=== PATIENT | male | born 1965 | race African-American/Black ===

== ENCOUNTER 2022-12-02 08:19 | Outpatient (REF) | payer OTHER, SELFPAY ==
--- NOTE | ~2022-12-02 | XR_ITS ---
EXAMINATION: XR KNEE, RIGHT XR KNEE, LEFT XR KNEE, STANDING BILATERAL CLINICAL INFORMATION: Bilateral knee pain. COMPARISON: None available. TECHNIQUE: AP standing view of bilateral knees, AP standing view of the left knee. Lateral and sunrise views of bilateral knees. FINDINGS: LEFT KNEE: Severe degenerative changes in the medial compartment of the left knee with obliteration of the joint space, [id number], subchondral sclerosis, and severe valgus deformity with subluxation. Small joint effusion. Moderate posterior patellar and lateral marginal osteophytes. RIGHT KNEE: No significant joint effusion. Small quadriceps enthesophyte. Moderate medial marginal and posterior patellar osteophytes. Moderate medial joint space narrowing. XR/XR knee RT 2V IMPRESSION: 1. Severe degenerative changes medial compartment left knee with subluxation. 2. Moderate degenerative changes right knee. Additional imaging with CT scan or MRI should be considered for better visualization as these modalities are much more sensitive for detection of fracture or other underlying pathology.
--- NOTE | ~2022-12-02 | XR_ITS ---
EXAMINATION: XR KNEE, RIGHT XR KNEE, LEFT XR KNEE, STANDING BILATERAL CLINICAL INFORMATION: Bilateral knee pain. COMPARISON: None available. TECHNIQUE: AP standing view of bilateral knees, AP standing view of the left knee. Lateral and sunrise views of bilateral knees. FINDINGS: LEFT KNEE: Severe degenerative changes in the medial compartment of the left knee with obliteration of the joint space, [id number], subchondral sclerosis, and severe valgus deformity with subluxation. Small joint effusion. Moderate posterior patellar and lateral marginal osteophytes. RIGHT KNEE: No significant joint effusion. Small quadriceps enthesophyte. Moderate medial marginal and posterior patellar osteophytes. Moderate medial joint space narrowing. XR/XR knee standing BI IMPRESSION: 1. Severe degenerative changes medial compartment left knee with subluxation. 2. Moderate degenerative changes right knee. Additional imaging with CT scan or MRI should be considered for better visualization as these modalities are much more sensitive for detection of fracture or other underlying pathology.
--- NOTE | ~2022-12-02 | XR_ITS ---
EXAMINATION: XR KNEE, RIGHT XR KNEE, LEFT XR KNEE, STANDING BILATERAL CLINICAL INFORMATION: Bilateral knee pain. COMPARISON: None available. TECHNIQUE: AP standing view of bilateral knees, AP standing view of the left knee. Lateral and sunrise views of bilateral knees. FINDINGS: LEFT KNEE: Severe degenerative changes in the medial compartment of the left knee with obliteration of the joint space, [id number], subchondral sclerosis, and severe valgus deformity with subluxation. Small joint effusion. Moderate posterior patellar and lateral marginal osteophytes. RIGHT KNEE: No significant joint effusion. Small quadriceps enthesophyte. Moderate medial marginal and posterior patellar osteophytes. Moderate medial joint space narrowing. XR/XR knee LT 2V IMPRESSION: 1. Severe degenerative changes medial compartment left knee with subluxation. 2. Moderate degenerative changes right knee. Additional imaging with CT scan or MRI should be considered for better visualization as these modalities are much more sensitive for detection of fracture or other underlying pathology.
== END 2022-12-02 08:20 | disposition home or self-care (01) ==
LOC: HO.HOSX 08:19
PROVIDERS: Visit Provider Physician Assistant
DX: M17.0 Bilateral primary osteoarthritis of knee (principal)
CPT/HCPCS: 73560; 73565; 99202

== ENCOUNTER 2022-12-02 15:04 | Outpatient (AMB) | payer OTHER, SELFPAY ==
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
[2022-12-02 15:15] VITALS: BMI 36.2
== END 2022-12-02 15:34 | disposition home or self-care (01) ==
PROVIDERS: Visit Provider Physician Assistant
DX: M17.0 Bilateral primary osteoarthritis of knee (principal)
CPT/HCPCS: 99204

== ENCOUNTER 2022-12-29 12:24 | Outpatient (AMB) | payer OTHER, SELFPAY ==
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
[2022-12-29 12:34] VITALS: BMI 36.2
== END 2022-12-29 13:06 | disposition home or self-care (01) ==
PROVIDERS: Visit Provider Orthopaedic Surgery
DX: M17.0 Bilateral primary osteoarthritis of knee (principal)
CPT/HCPCS: 99214

== ENCOUNTER → 2022-12-29 12:24 | Outpatient (BNVA) | payer OTHER, SELFPAY | PROVIDERS: Visit Provider Orthopaedic Surgery | DX: M17.0 Bilateral primary osteoarthritis of knee (principal) | CPT/HCPCS: 99212 ==

== ENCOUNTER → 2023-02-15 11:04 | Outpatient (BNVA) | payer OTHER, SELFPAY | PROVIDERS: Visit Provider Orthopaedic Surgery ==

== ENCOUNTER → 2023-03-13 14:11 | Outpatient (BNVA) | payer OTHER, SELFPAY | PROVIDERS: PCP Student in an Organized Health Care Education/Training Program; Visit Provider Physician Assistant ==

== ENCOUNTER → 2023-05-18 14:14 | Outpatient (BNVA) | payer OTHER, SELFPAY | PROVIDERS: PCP Student in an Organized Health Care Education/Training Program; Visit Provider Physician Assistant ==

== ENCOUNTER 2023-05-23 12:45 | Day surgery (SDC) | payer OTHER, SELFPAY ==
[2023-05-18 13:29] VITALS: BP 160/82; PULSE 58; RESP 18; O2SAT 99; BMI 38.2
--- NOTE | 2023-05-18 13:46 | HO.ANESPROP2 ---
Documented by User: Lana Bethea NP 05/18/23 13:58 HPI - Anesthesia Eval Consult details Narrative: 57yo M for Left Knee Replacement Total, 05/23/23 PCP Cleared No recent illness No CP/SOB with minimal activity d/t pain PMFSH Active Problems Active Problems: All Active Problems (Updated 05/18/23 @ 13:28 by Glenys Tello RN) Osteoarthritis of left knee (Acute) Osteoarthritis of right knee (Acute) Past Medical History Medical History History of infection of skin or subcutaneous tissue BPH (benign prostatic hyperplasia) Arthritis Hx of transfusion of packed red blood cells Anemia Sleep apnea Elevated cholesterol HTN (hypertension) Family History Family history of problems with anesthesia: No Surgical History Surgical History H/O colonoscopy History of ankle surgery History of Problems with Anesthesia: No Social History Social History Are you a primary career based intervention coordinator to a significant other at home: No Do you presently have visiting nurse or other home services: No Patient Tobacco Use Status: Never used Tobacco Use of substances other than those prescribed or required for medical reasons: Yes Substance Use Frequency: Occasionally Have you been hit, kicked, punched, or otherwise hurt by someone within the past year? 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 Meds Allergies Allergy/AdvReac Type Severity Reaction Status Date / Time No Known Allergies Allergy Verified 05/18/23 14:19 Home Medications Medication Instructions Recorded Confirmed Last Taken Type atorvastatin 10 mg tablet 10 mg PO BEDTIME 12/02/22 05/18/23 Unknown History lisinopril 2.5 mg tablet 2.5 mg PO DAILY 12/02/22 05/18/23 Unknown History secukinumab 150 mg/mL subcutaneous 150 mg subcut Q4W 12/02/22 05/18/23 Unknown History syringe (Cosentyx) finasteride 5 mg tablet 2.5 mg PO DAILY 05/18/23 05/18/23 Unknown History naproxen 500 mg tablet 500 mg PO BID PRN Pain 05/18/23 05/18/23 Unknown History Exam Height,Weight and Vital Signs: Height 5 ft 7 in Weight 110.677 kg Last Vital Signs Pulse 58 05/18/23 13:29 Resp 18 05/18/23 13:29 BP 160/82 H 05/18/23 13:29 Pulse Ox 99 05/18/23 13:29 O2 Del Method Room Air 05/18/23 13:29 Pertinent Lab Results Pertinent Lab Results: A1C = 5.5 08/2022 Narrative Narrative: EKG 02/2023 SR @ 64 PVC RSR' in V1 or V2 LVH Airway Mallampati Class: III TM Dist: >3cm Neck ROM: Full Loose/Missing/Broken Teeth: Yes (Missing molars) Heart: RRR Lungs: CTAB Assessment and Plan Assessment Anesthesia Assessment: Anesthesia Plan Discussed and PAT Visit Final Anesthetic Review Family History of Problems with Anesthesia: No History of Problems with Anesthesia: No Documented by User: Micki Tinsley MD 05/23/23 13:03 [facility] [place] Past Medical History Medical History History of infection of skin or subcutaneous tissue BPH (benign prostatic hyperplasia) Arthritis Hx of transfusion of packed red blood cells Anemia Sleep apnea Elevated cholesterol HTN (hypertension) Surgical History Surgical History H/O colonoscopy History of ankle surgery Social History Social History Are you a primary career based intervention coordinator to a significant other at home: No Do you presently have visiting nurse or other home services: No Patient Tobacco Use Status: Never used Tobacco Use of substances other than those prescribed or required for medical reasons: Yes Substance Use Frequency: Occasionally Have you been hit, kicked, punched, or otherwise hurt by someone within the past year? 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 Meds Allergies Allergy/AdvReac Type Severity Reaction Status Date / Time No Known Allergies Allergy Verified 05/18/23 14:19 Home Medications Medication Instructions Recorded Confirmed Last Taken Type atorvastatin 10 mg tablet 10 mg PO BEDTIME 12/02/22 05/18/23 Unknown History lisinopril 2.5 mg tablet 2.5 mg PO DAILY 12/02/22 05/18/23 Unknown History secukinumab 150 mg/mL subcutaneous 150 mg subcut Q4W 12/02/22 05/18/23 Unknown History syringe (Cosentyx) finasteride 5 mg tablet 2.5 mg PO DAILY 05/18/23 05/18/23 Unknown History naproxen 500 mg tablet 500 mg PO BID PRN Pain 05/18/23 05/18/23 Unknown History Assessment and Plan Final Anesthetic Review ASA Class: III Final Preanesthetic Review: No Changes in Pt Med Stat, Meds/Allgs Chart Reviewed, Consent Obtained/Reviewed and Anes Risks/Benef Reviewed Patient Risk: Intermediate Procedure Risk: Intermediate Anesthetic Plan Anesthetic Plan: GA, MAC: and Spinal Disposition: Standard PACU
[2023-05-18 14:47] LABS: Hematocrit 39.4 % (42.0-52.0); Hemoglobin 12.8 g/dl (14.0-18.0); Mean Corpuscular HGB Conc 32.5 g/dl (31.0-36.0); Mean Corpuscular Hemoglobin 27.7 pg (27.0-33.0); Mean Corpuscular Volume 85.3 fL (80.0-98.0); Mean Platelet Volume 12.7 fL (9.4-12.4); Platelet Count 128 X10*3/uL (160-400); Red Blood Count 4.62 X10*6/uL (4.60-5.80); Red Cell Distribution Width 14.1 % (11.0-16.0); White Blood Count 8.3 X10*3/uL (4.8-10.8)
[2023-05-18 15:35] LABS: Anion Gap 12 (12-20); Blood Urea Nitrogen 15 mg/dL (9-16); Calcium 9.8 mg/dL (8.4-10.2); Carbon Dioxide 24 mmol/L (22-29); Chloride 108 mmol/L (96-108); Estimated Glomerular Filt Rate > 60; Glucose Random 78 mg/dL (60-115); Potassium 3.9 mmol/L (3.3-5.1); Sodium 140 mmol/L (135-145)
[2023-05-18 16:48] LABS: MRSA Nasal PCR POSITIVE (Negative); SA Nasal PCR POSITIVE (Negative)
[2023-05-23] VITALS (9 sets, daily range): BP systolic 131–161; BP diastolic 75–90; PULSE 51–89; RESP 14–19; TEMP 36.3–36.7; O2SAT 96–100; BMI 38.4
--- NOTE | ~2023-05-23 | XR_ITS ---
EXAMINATION:XR knee LT 2V CLINICAL INFORMATION: Reason for Exam lt tka COMPARISON: November 2022 TECHNIQUE: Frontal and lateral views acquired FINDINGS: BONES: No fracture or dislocation is present. JOINTS: There is total knee replacement prosthesis device, both femoral and tibial component of which is properly positioned maintaining normal alignment's. No radiologic evidence of device loosening. Patella properly positioned. SOFT TISSUE: Subcutaneous emphysema likely postoperative. XR/XR knee LT 2V IMPRESSION: 1. Status post total knee replacement. The prosthesis is properly positioned. 2. Subcutaneous emphysema likely postoperative.
[2023-05-23] MEDS: Lactated Ringers 1,000 ML 100 ML IVCONT ×2 (13:55→19:47)
--- NOTE | 2023-05-23 16:24 | MHC.SHP ---
Pre-Procedural Eval Section A - 24 Hr Update-Section A only Date of Service: 05/23/23 The patient is an INPATIENT: No Changes since office visit: No Cold of Flu in the past 2 weeks, No New Medical Problems, No Changes in Medication and No Patient answered all questions The patient has been examined within 24 hours of the surgical procedure. The History & Physical has been completed within 30 days and I have reviewed it.: Yes Section B - Complete if H&P > 30 days Chief Complaint: LT TKA Allergies: Allergies Allergy/AdvReac Type Severity Reaction Status Date / Time No Known Allergies Allergy Verified 05/18/23 14:19 Plan I have reviewed the history and physical and performed a pertinent physical examination on my patient. No changes have occurred unless specified. Time Spent With Patient Time: Total time managing care of this patient today ____ minutes.
--- NOTE | 2023-05-23 18:20 | P.BOP_ITS ---
Brief Operative Note Date of Service: 05/23/23 Pre-op diagnosis: Left knee OA Post-op diagnosis: same Procedure: Left TKA Implants: [place] Triuathlon cemented posterior stabilized 07/26/18 Surgeon: Josias Bacon MD Anesthesia: GETA Was an Property Supervisor used for this Procedure?: Yes Property Supervisor: Steve Quach Estimated blood loss (mL): 10 Tourniquet time (min): 70 Pathology: other Condition: stable Disposition: PACU
[2023-05-23] MEDS: oxyCODONE HCl ER 10 MG TAB.ER.12H PO (20:11)
[2023-05-23] MEDS: Celecoxib 200 MG CAPSULE PO (20:11)
[2023-05-23] MEDS: Docusate Sodium 100 MG CAPSULE PO (20:11)
[2023-05-23] MEDS: oxyCODONE HCl Immed Release 5 MG TABLET PO (23:32)
[2023-05-23] MEDS: Acetaminophen 325 MG TABLET 650 MG PO (23:33)
[2023-05-23] MEDS: vancomycin HCL 1,000 MG in 0.9 % Sodium Chloride 250 ML 270 MG IV (23:33)
[2023-05-24 02:33] VITALS: BP 154/79; PULSE 94; RESP 18; TEMP 36.4; O2SAT 99
[2023-05-24] MEDS: HYDROmorphone HCl 0.5 MG/0.5 ML SYRINGE 0.25 MG IVPUSH (02:33)
[2023-05-24] MEDS: Lactated Ringers 1,000 ML 100 ML IVCONT (06:07)
[2023-05-24 06:09] LABS: Basophils Percent Auto 0.1 % (0-2); Hemoglobin 12.2 g/dl (14.0-18.0); Imm Gran Abs Auto 0.04 X10*3/uL (0.00-0.03); Imm Gran Pct Auto 0.3 % (0.0-0.4); PLT ABN DIST 1; SCAN SMEAR FLAG 1
[2023-05-24 06:10] LABS: Hematocrit 36.6 % (42.0-52.0); Lymphocytes Absolute Auto 0.7 X10*3/uL (1.2-4.9); Lymphocytes Percent Auto 5.6 % (20-40); Mean Corpuscular HGB Conc 33.3 g/dl (31.0-36.0); Mean Corpuscular Hemoglobin 28.2 pg (27.0-33.0); Mean Corpuscular Volume 84.7 fL (80.0-98.0); Mean Platelet Volume 13.5 fL (9.4-12.4); Monocytes Absolute Auto 0.6 X10*3/uL (0.1-1.2); Monocytes Percent Auto 4.5 % (2-11); Neutrophils Absolute Auto 11.3 x10*3/uL (2.0-8.3); Neutrophils Percent Auto 89.5 % (45-73); PLT CLUMP 1; Red Blood Count 4.32 X10*6/uL (4.60-5.80)
[2023-05-24 06:11] LABS: MANUAL DIFF FLAG NO; Platelet Count 107 X10*3/uL (160-400); White Blood Count 12.6 X10*3/uL (4.8-10.8)
[2023-05-24] MEDS: oxyCODONE HCl Immed Release 5 MG TABLET PO (06:11)
[2023-05-24] MEDS: Acetaminophen 325 MG TABLET 650 MG PO (06:11)
[2023-05-24 06:44] LABS: Anion Gap 15 (12-20); Blood Urea Nitrogen 15 mg/dL (9-16); Calcium 9.3 mg/dL (8.4-10.2); Carbon Dioxide 20 mmol/L (22-29); Chloride 105 mmol/L (96-108); Estimated Glomerular Filt Rate > 60; Glucose Fasting 140 mg/dL (60-99); Potassium 4.4 mmol/L (3.3-5.1); Sodium 136 mmol/L (135-145)
[2023-05-24] MEDS: Finasteride 5 MG TABLET 2.5 MG PO (07:33)
[2023-05-24] MEDS: oxyCODONE HCl ER 10 MG TAB.ER.12H PO (07:33)
[2023-05-24] MEDS: Celecoxib 200 MG CAPSULE PO (07:34)
[2023-05-24] MEDS: Docusate Sodium 100 MG CAPSULE PO (07:34)
--- NOTE | 2023-05-24 07:34 | PM.PNORT ---
Subjective Subjective Date of Service: 05/24/23 Interval history: POD1 s/p LTKA Patient is resting in bed comfortably No overnight events Pain is managed No additional complaints Physical Exam Vital Signs: Vital Signs: Last Vital Signs Temp 97.5 F 05/24/23 02:33 Pulse 94 05/24/23 02:33 Resp 18 05/24/23 02:33 BP 154/79 H 05/24/23 02:33 Pulse Ox 99 05/24/23 02:33 O2 Del Method Nasal Cannula 05/24/23 02:33 O2 Flow Rate 2 05/24/23 02:33 BMI result Body Mass Index 38.4 Const: General: cooperative, healthy appearing and no acute distress Resp: Effort & Inspection: normal respiratory effort and able to speak in complete sentences Cardio: Rate: regular rate Peripheral pulses: Peripheral pulses 2+ throughout GI: Palpation (GI): Soft to palpation Skin: Lesions: no lesions Rashes: no rashes Extrem: Other: left knee dressing is c/d/i. Able to dorsi/plantar flex. Calf is supple and nontender. Sensation intact. Pedal pulse intact. Procedures Date of Service Date of Service: 05/24/23 Progress Note: A&P Assessment and plan (1) Status post total knee replacement, left: Status: Acute Plan Continue pain mgmnt Begin ASA for dvt ppx begin PT for LTKA Dispo planning-Pending PT eval, pain mgmnt Time Spent With Patient Time: Total time managing care of this patient today ____ minutes. Quality Stroke Does the patient have a stroke diagnosis?: No VTE Prior VTE?: No VTE Risk Level:: Medical - moderate - high VTE Device Contraindication: N/A - Device Ordered VTE Drug Contraindication: N/A - Med Ordered
--- NOTE | 2023-05-24 07:36 | PM.DS ---
DS: Providers Provider Date of Service: 05/24/23 Primary care physician: Pito Capellan MD DS: Diagnosis Discharge Diagnosis (1) Status post total knee replacement, left: Status: Acute DS: Summary Hospital Course Hospital Course: The patient underwent a successful left total knee arthroplasty, they were transferred to PACU and then to the floor to recover. During their stay, their vitals were stable, afebrile at 97.5. Labs were unremarkable, H/H 12.2/36.6. POD 1 they were started on Aspirin 325mg po bid for DVT ppx, they also received Physical Therapy services twice a day. Prior to discharge, their dressing was changed, incision clean dry and intact, new Aquacel dressing applied and the plan was to be discharged home with VNA services. Time Attestation Discharge coordination time: Less than 30 minutes Quality: Safe Use of Opioids Does Pt have an Active Cancer Diagnosis on the Problem List?: No Quality: Stroke Does the patient have a stroke diagnosis?: No Physical Exam Vital Signs: Vital Signs: Last Vital Signs Temp 97.5 F 05/24/23 02:33 Pulse 94 05/24/23 02:33 Resp 18 05/24/23 02:33 BP 154/79 H 05/24/23 02:33 Pulse Ox 99 05/24/23 02:33 O2 Del Method Nasal Cannula 05/24/23 02:33 O2 Flow Rate 2 05/24/23 02:33 BMI result Body Mass Index 38.4 Const: General: cooperative, healthy appearing and no acute distress Resp: Effort & Inspection: normal respiratory effort and able to speak in complete sentences Cardio: Rate: regular rate Peripheral pulses: Peripheral pulses 2+ throughout GI: Palpation (GI): Soft to palpation Skin: Lesions: no lesions Rashes: no rashes Extrem: Other: left knee dressing is c/d/i. Able to dorsi/plantar flex. Calf is supple and nontender. Sensation intact. Pedal pulse intact. DS: Data Data Completed and Pending Pending studies at discharge: Pending at discharge 05/23/23 17:58 Surgical [PTH] Routine Labs on day of discharge: Laboratory Results - last 24 hr 05/24/23 05:23 WBC 12.6 H RBC 4.32 L Hgb 12.2 L Hct 36.6 L MCV 84.7 MCH 28.2 MCHC 33.3 RDW 14.0 Plt Count 107 L MPV 13.5 H Immature Gran % (Auto) 0.3 Neut % (Auto) 89.5 H Lymph % (Auto) 5.6 L [place] % (Auto) 4.5 Eos % (Auto) 0.0 Baso % (Auto) 0.1 Lymph # (Auto) 0.7 L [place] # (Auto) 0.6 Eos # (Auto) 0.0 Baso # (Auto) 0.0 Abs Immat Gran (auto) 0.04 H Absolute Neuts (auto) 11.3 H Absolute Nucleated RBC 0.000 Nucleated RBC % (auto) 0.0 Sodium 136 Potassium 4.4 Chloride 105 Carbon Dioxide 20 L Anion Gap 15 BUN 15 Creatinine 0.85 Estim Creat Clear Calc 114.0 Estimated GFR > 60 Fasting Glucose 140 H Calcium 9.3 Discharge Plan Discharge Patient Disposition: Home Health Service Referrals: Meena LARSEN [Outside] - 1 Week Steve Quach PA-C [Physician Mechanical Car Checker] - 06/08/23 1:30 pm Discharge Medications: New celecoxib 200 mg Capsule 200 mg PO BID 30 Days Qty: 60 0RF acetaminophen 325 mg Tablet 650 mg PO Q6H PRN (Reason: Pain, Mild (Pain Scale 1-3)) 30 Days Qty: 42 0RF aspirin 325 mg Tablet 325 mg PO BID 42 Days Qty: 84 0RF docusate sodium 100 mg Capsule 100 mg PO BID 30 Days Qty: 60 0RF oxycodone 5 mg Tablet 5 mg PO Q4H PRN (Reason: Pain, Moderate (Pain Scale 4-6) 7 Days Qty: 42 0RF Rx Instructions: Partial Fill upon patient request. Continued finasteride 5 mg tablet 2.5 mg PO DAILY lisinopril 2.5 mg tablet 2.5 mg PO DAILY atorvastatin 10 mg tablet 10 mg PO BEDTIME Cosentyx 150 mg/mL syringe 150 mg subcut Q4W Discontinued naproxen 500 mg tablet 500 mg PO BID PRN (Reason: Pain) Discharge Orders: Discharge Order (Routine); Ordered 05/24/23 Ordered By: Katerine Rowe Diet: Advance to usual diet Activity on Discharge: Use cane or walker Activity Restrictions/Additional Instructions: Physical Therapy for ROM 0-120, quad strength, gait training. Use walker for ambulation Limit stair climbing, No shower, No tub bath, No driving Continue anticoagulant Aspirin x 6 weeks Keep Aquacel dressing clean, dry and intact. Follow up with orthopedics in 2 weeks
--- NOTE | 2023-05-24 07:39 | W.MHC.F2F ---
Service Date Service Date: 05/24/23 Encounter Date of encounter: 05/24/23 Reasons for Services Signs and symptoms assessed: s/p LTKA Pt. is considered homebound due to recent surgery. Unable to drive, poor balance, poor gait mechanics. Reason for physical therapy: home safety and mobility, therapeutic exercises, restore joint function, gait/transfer training, assess need for DME and ADL training Homebound: Leaving the home is medically contraindicated at this time without the asist of a device and/or another person due th the listed conditions above and below. Reason homebound: unsteady gait / fall risk, leg weakness, pain with ambulation, pain with transfers, poor balance / fall risk and unable to drive Certification: Based on the above findings, I certify that this patient is confined to the home and needs intermittent group home care, physical therapy and/or speech therapy, or continues to need occupational therapy. The patient is under my care, and I have initiated the establishment of the plan of care. The patient will be followed by a physician who will periodically review the plan of care. Time Spent With Patient Time: Total time managing care of this patient today ____ minutes.
[2023-05-24 07:51] VITALS: BP 152/77; PULSE 94; RESP 18; TEMP 36.2; O2SAT 99
[2023-05-24 11:00] VITALS: BP 146/82; PULSE 91; RESP 17; TEMP 36.2; O2SAT 98
--- NOTE | 2023-05-24 12:52 | MHC.CM.PN ---
pt lives with had no services..pt recommends a vna for home pt pt has own ride home
--- NOTE | 2023-05-24 14:32 | HO.POSTANES ---
Post Anesthesia Evaluation Post Anesthesia Evaluation Date of Service: 05/24/23 Vital Signs: Vital Signs Temp Pulse Resp BP Pulse Ox O2 Del Method O2 Flow Rate 05/24/23 11:00 97.1 F 91 17 146/82 H 98 Room Air 05/24/23 07:51 97.2 F 94 18 152/77 H 99 Nasal Cannula 2.0 05/24/23 02:33 97.5 F 94 18 154/79 H 99 Nasal Cannula 2 Anesthesia: Spinal and Nerve Block Mental Status: Awake Pain Control: Satisfactory Nausea/Vomiting: None Hydration: Adequate Anesthesia-Related Issues: No Anes. Related Issues
[2023-05-24 15:00] VITALS: BP 140/66; PULSE 86; RESP 18; TEMP 36.5; O2SAT 98
--- NOTE | 2023-05-24 16:15 | MHC.CM.PN ---
Patients came in to pick him up. Per loss prevention coordinator agreed to discharge. Patient left prior to receiving dc order. [facility] has been notified of the discharge today.
--- NOTE | 2023-06-03 08:54 | W.PM.OPN ---
Operative Note Operative Note Date of Service: 05/23/23 Narrative: Date of Service: 05/23/23 Pre-op diagnosis: Left knee OA Post-op diagnosis: same Procedure: Left TKA Implants: [place] Triuathlon cemented posterior stabilized 07/26/18 Surgeon: Josias Bacon MD Anesthesia: GETA Was an Human Development Professor used for this Procedure?: Yes Human Development Professor: Steve Quach Estimated blood loss (mL): 10 Tourniquet time (min): 70 Pathology: other Condition: stable Disposition: PACU Procedure in detail: The patient was brought to the operating room and prepped and draped in standard sterile fashion. A time-out was called to identify proper site proper procedure proper surgeon and IV antibiotics were administered. 1 g of IV tranexamic acid was administered. I began by making a midline incision to the retinaculum and performed a medial parapatellar arthrotomy. The patella was translated laterally and the knee was flexed up. There was tricompartmental OA with severe varus OA. I performed a small medial peel and resected the infrapatellar fat pad. Saeid's line was then used to drill my intramedullary femoral guide and my distal femur cut of 10mm was made in 5 degrees of valgus while protecting the soft tissues. I then measured a # 4 femur and placed my cutting guide and made my anterior posterior and chamfer cuts protecting the soft tissues at all times. I then made my box but removing the PCL. Once I was satisfied with my cuts I turned my attention to the tibia. I removed the meniscus medially and laterally and , using an external cutting guide, in line with the tibial crest and the third ray, I made my distal tibial cut in 0 deg slope of while protecting the posterior soft tissues at all times. An extension block was used to confirm appropriate amount of bony resection. I then sized a 4 tibia and once I was satisfied that there was complete tibial coverage I placed my trial and with the trial femur in place took the knee through range of motion. I removed a large osteop[hyte from the medial plateau and released the anterior MCL while in extension. There was moderate v/v imbalance given the severity of varus and so a TS insert was selected. I was satisfied with the extension and flexion as well as the stability at 0, 30 and 90 degrees. I then turned my attention to the patella where I removed 1 cm from the undersurface of the patella and then trialed a 29a patellar button. The knee was taken through range of motion I was satisfied with the tracking. I then returned to the femur and drilled my femoral lug holes and prepared the tibia. A femoral bone plug was placed and the knee was irrigated copiously. I then mnixed 2 bags of palacos bone cement on the back table and cemented the patella, tibia and femur in standard fashion while applying axial compression and with a clamp over the patella. I trialed different inserts until I selected a #19TS insert. The final insert was placed and the wound was irrigated and local TXA was administered. The knee was then closed with a running Quill suture, a 3 0 Vicryl and bertha on the skin. Patient was then placed in sterile dressing and brought to recovery room in stable condition there were no known complications.
== END 2023-05-24 15:54 | disposition home health service (06) ==
LOC: HO.SSS 12:47 → HO.S3 18:48
PROVIDERS: Nurse Practitioner; Orthopaedic Surgery; PCP Student in an Organized Health Care Education/Training Program; Visit Provider Physician Assistant
PROC: (CPT 27447; principal; 2023-05-23 14:10)
DX: M17.12 Unilateral primary osteoarthritis, left knee (principal); R26.2 Difficulty in walking, not elsewhere classified; N40.0 Benign prostatic hyperplasia without lower urinary tract symptoms; Z86.19 Personal history of other infectious and parasitic diseases; I10 Essential (primary) hypertension; D64.9 Anemia, unspecified; E78.00 Pure hypercholesterolemia, unspecified; G47.30 Sleep apnea, unspecified; Z79.899 Other long term (current) drug therapy; Z79.1 Long term (current) use of non-steroidal anti-inflammatories (NSAID); Z98.890 Other specified postprocedural states
CPT/HCPCS: 27447; 36415; 73560; 80048; 85025; 85027; 86850; 86900; 86901; 87640; 87641; 88305; 88311; 97110; 97116; 97162; 97530; 99024; C1713; C1776; J0665; J1100; J1170; J2250; J2405; J2704; J3010; J3370; J7120

== ENCOUNTER → 2023-05-23 12:45 | Outpatient (BNV) | payer OTHER, SELFPAY | PROVIDERS: PCP Student in an Organized Health Care Education/Training Program; Visit Provider Orthopaedic Surgery | DX: M17.12 Unilateral primary osteoarthritis, left knee (principal) | CPT/HCPCS: 27447; 99024 ==

== ENCOUNTER 2023-06-01 13:42 | Outpatient (AMB) | payer OTHER, SELFPAY ==
--- NOTE | 2023-06-01 13:49 | MHC.OFFVIS ---
Intake Vital Signs 06/01/23 13:55 Height 5 ft 7 in Weight 240 lb BMI 37.6 Intake Visit Reasons: PO - LT TKA 05/23/23 NE - Decreased ROM Intake Note: Ok is a 57 year old male who presents today for a post op appointment s/p left TKA 05/23/23 NE. Patient report he is feeling discomfort due to not being able to bend his knee. PT is going well, however he is feeling a lot of soreness after. Allergies No Known Allergies Allergy (Verified 06/01/23 13:56) HPI PO - LT TKA 05/23/23 NE - Decreased ROM HPI Details 57-year-old gentleman returns to the office today for a [id number] check status post left total knee arthroplasty on 05/23/[address] Bacon. He has been working with physical therapy at home and there was concern that he was more stiff than usual. Denies fever or chills. PFS Medical History History of infection of skin or subcutaneous tissue BPH (benign prostatic hyperplasia) Arthritis Hx of transfusion of packed red blood cells Anemia Sleep apnea Elevated cholesterol HTN (hypertension) Surgical History H/O colonoscopy History of ankle surgery Social History Household Members: Spouse Housing: House Are you a primary home health aide caregiver to a significant other at home: No Do you presently have visiting nurse or other home services: No Patient Tobacco Use Status: Former Tobacco user Tobacco use type: Cigarette Substance Use Type: Marijuana service: No 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al status: disabled 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 Jonathon intact. No surrounding redness or erythema. No drainage. Range of motion he has difficulty with straight leg raise. He is able to activate the quad muscle. Active flexion to 40 degrees. Passive flexion to 80. Neurovascularly intact. Assessment & Plan Assessment & Plan (1) Status post total knee replacement, left: Code(s): Z96.652 - Presence of left artificial knee joint Plan He will continue to work with physical therapy to maintain and improve his range of motion. He will continue working on quad strength. See us back in 1 week for his routine postop appointment, sooner if needed. Coding Level of Care Code Global (55954) Diagnoses Status post total knee replacement, left Z96.652
[2023-06-01 13:55] VITALS: BMI 37.6
== END 2023-06-01 14:09 | disposition home or self-care (01) ==
PROVIDERS: PCP Student in an Organized Health Care Education/Training Program; Visit Provider Physician Assistant
DX: Z96.652 Presence of left artificial knee joint (principal)
CPT/HCPCS: 99024

== ENCOUNTER → 2023-06-01 13:42 | Outpatient (BNVA) | payer OTHER, SELFPAY | PROVIDERS: PCP Student in an Organized Health Care Education/Training Program; Visit Provider Physician Assistant | DX: Z47.1 Aftercare following joint replacement surgery (principal); Z96.651 Presence of right artificial knee joint | CPT/HCPCS: 99212 ==

== ENCOUNTER 2023-06-08 13:13 | Outpatient (AMB) | payer OTHER, SELFPAY ==
[2023-06-08 13:18] VITALS: BMI 37.6
--- NOTE | 2023-06-08 13:18 | A.OFFVIS_ITS ---
Intake Vital Signs 06/08/23 13:18 Height 5 ft 7 in Weight 240 lb BMI 37.6 Intake Visit Reasons: PO-LT TKA 05/23/23 NE Intake Note: Ok is a 57 year old male presents today for a post op appointment s/p left TKA 05/23/23 NE. States his pain is mild and swelling and is doing well over all. Allergies No Known Allergies Allergy (Verified 06/08/23 13:20) HPI PO-LT TKA 05/23/23 NE HPI Details 57-year-old male who returns to the [facility] today for post-op left TKA, 05/23/[address] Bacon. He states he has mild pain and swelling in his knee however he is doing well overall. He has no other concerns today. [facility] Medical History History of infection of skin or subcutaneous tissue BPH (benign prostatic hyperplasia) Arthritis Hx of transfusion of packed red blood cells Anemia Sleep apnea Elevated cholesterol HTN (hypertension) Surgical History H/O colonoscopy History of ankle surgery Social History Household Members: Spouse Housing: House Are you a primary ocular care technologist to a significant other at home: No Do you presently have visiting nurse or other home services: No Patient Tobacco Use Status: Former Tobacco user Tobacco use type: Cigarette Substance Use Type: Marijuana service: No 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al status: disabled 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 There is an area along superior portion of the incision that has some superficial breakdown. No redness or drainage surrounding this portion of the incision. ROM is -5 to 90 degrees. Calf supple, nontender. NVI. Assessment & Plan Assessment & Plan (1) Status post total knee replacement, left: Code(s): Z96.652 - Presence of left artificial knee joint Plan Jonathon removed, steri strips applied. He will begin to transition to Outpatient PT to continue working on Gait training, ROM and quad strength. No driving for another 4 weeks. He will require ppx abx for dental procedures. I did use a curette to deride the skin along the top of the incision to stimulate bleeding for healing. I instructed him and his how to perform wet to dry dressing changes. We need to be cautious of this area given his h/o of HS and risk of skin infection. He will return in 1 week for a skin check, sooner if needed. Patient Instructions: Scribed for Steve Quach PA-C, by Dylan Mcghee medical insurance biller, on 06/08/2023 at 1:30 PM EST. I, Steve Quach PA-C, have personally reviewed and agree with the information entered by the scribe. Coding Level of Care Code Global (76185) Diagnoses Status post total knee replacement, left Z96.652
== END 2023-06-08 13:58 | disposition home or self-care (01) ==
PROVIDERS: PCP Student in an Organized Health Care Education/Training Program; Visit Provider Physician Assistant
DX: Z96.652 Presence of left artificial knee joint (principal)
CPT/HCPCS: 99024

== ENCOUNTER → 2023-06-08 13:13 | Outpatient (BNVA) | payer OTHER, SELFPAY | PROVIDERS: PCP Student in an Organized Health Care Education/Training Program; Visit Provider Physician Assistant | DX: Z47.1 Aftercare following joint replacement surgery (principal); Z96.652 Presence of left artificial knee joint | CPT/HCPCS: 99212 ==

== ENCOUNTER 2023-06-16 11:51 | Outpatient (AMB) | payer OTHER, SELFPAY ==
--- NOTE | 2023-06-16 11:56 | MHC.OFFVIS ---
Intake Intake Visit Reasons: PO-LT TKA 05/23/23 NE-one week follow up Intake Note: Ok is a 57 year old male presents today for a post op appointment s/p left TKA 05/23/23 NE for a skin check per TM Allergies No Known Allergies Allergy (Verified 06/16/23 11:56) HPI PO-LT TKA 05/23/23 NE-one week follow up HPI Details Ok is a 57 year old man who returns for a skin check, S/P left TKA, DOS: 05/23/23. He has been performing WTD dressing changes at home [facility] Medical History History of infection of skin or subcutaneous tissue BPH (benign prostatic hyperplasia) Arthritis Hx of transfusion of packed red blood cells Anemia Sleep apnea Elevated cholesterol HTN (hypertension) Surgical History H/O colonoscopy History of ankle surgery Social History Household Members: Spouse Housing: House Are you a primary animal caregiver to a significant other at home: No Do you presently have visiting nurse or other home services: No Patient Tobacco Use Status: Former Tobacco user Tobacco use type: Cigarette Substance Use Type: Marijuana service: No 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al status: disabled 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 Review of Systems Const All systems reviewed & are unremarkable except as noted in HPI and below Physical Exam Const General: no acute distress, alert and awake Orientation/consciousness: patient oriented x3 HEENT Head: Yes normocephalic and Yes atraumatic Eyes EOM: EOMs intact bilaterally Resp Effort & Inspection: normal respiratory effort and able to speak in complete sentences Cardio Jugular venous distension: no JVD Skin General skin exam: turgor normal Rashes: no rashes Neuro General: patient oriented x3 Extrem Other: inc c/d/i Proximal tiny eschar with superficial opening wihtout drainage and not deep. 0-90 rom no effusion Psych Appearance: grossly normal Affect: normal affect Attitude: cooperative Assessment & Plan Assessment & Plan (1) Status post total knee replacement, left: Code(s): Z96.652 - Presence of left artificial knee joint Plan: No evidence for infection F/u 3 weeks COnt PT Plan Prepared for Josias Bacon MD by Newton Petty, medical corps officer, on 06/16/23 at 12:01 PM, EST. Coding Level of Care Code Global (79586) Diagnoses Status post total knee replacement, left Z96.652
== END 2023-06-16 12:31 | disposition home or self-care (01) ==
PROVIDERS: PCP Student in an Organized Health Care Education/Training Program; Visit Provider Orthopaedic Surgery
DX: Z96.652 Presence of left artificial knee joint (principal)
CPT/HCPCS: 99024

== ENCOUNTER → 2023-06-16 11:51 | Outpatient (BNVA) | payer OTHER, SELFPAY | PROVIDERS: PCP Student in an Organized Health Care Education/Training Program; Visit Provider Orthopaedic Surgery | DX: Z47.1 Aftercare following joint replacement surgery (principal); Z96.652 Presence of left artificial knee joint | CPT/HCPCS: 99212 ==

== ENCOUNTER 2023-07-10 12:04 | Outpatient (REF) | payer OTHER, SELFPAY ==
--- NOTE | ~2023-07-10 | XR_ITS ---
EXAMINATION: XR KNEE, LEFT XR KNEE AP STANDING CLINICAL INFORMATION: Pain. COMPARISON: Prior examinations, most recently 05/23/2023. TECHNIQUE: Lateral and axial views of the left knee were obtained. AP bilateral standing view of the knees was obtained. FINDINGS: There is mild peripheral osteophyte formation of the lateral and medial joint space compartments of the right kidney, which are well-maintained. Prosthetic components of the left total knee arthroplasty are appropriately aligned without periprosthetic fracture or abnormal lucency. No component migration. No joint effusion. XR/XR knee LT 2V IMPRESSION: 1. Appropriate alignment of the total knee arthroplasty without evidence of complications. 2. There is mild osteoarthritic change of the lateral and medial joint space compartments of the right knee.
--- NOTE | ~2023-07-10 | XR_ITS ---
EXAMINATION: XR KNEE, LEFT XR KNEE AP STANDING CLINICAL INFORMATION: Pain. COMPARISON: Prior examinations, most recently 05/23/2023. TECHNIQUE: Lateral and axial views of the left knee were obtained. AP bilateral standing view of the knees was obtained. FINDINGS: There is mild peripheral osteophyte formation of the lateral and medial joint space compartments of the right kidney, which are well-maintained. Prosthetic components of the left total knee arthroplasty are appropriately aligned without periprosthetic fracture or abnormal lucency. No component migration. No joint effusion. XR/XR knee standing BI IMPRESSION: 1. Appropriate alignment of the total knee arthroplasty without evidence of complications. 2. There is mild osteoarthritic change of the lateral and medial joint space compartments of the right knee.
== END 2023-07-10 12:05 | disposition home or self-care (01) ==
LOC: HO.HOSX 12:04
PROVIDERS: Visit Provider Orthopaedic Surgery
DX: M25.561 Pain in right knee (principal)
CPT/HCPCS: 73560; 73565; 99212

== ENCOUNTER 2023-07-10 12:48 | Outpatient (AMB) | payer OTHER, SELFPAY ==
--- NOTE | 2023-07-10 13:04 | A.OFFVIS_ITS ---
Intake Intake Visit Reasons: PO-LT TKA 05/23/23 NE - Confirmed Intake Note: Ok is a 57 year old male presents today for a post op appointment s/p left TKA 05/23/23. At his second post operative appointment there was some superficial breakdown at the superior portion of the incision, this was debrided with a curette and patient was instructed to preform wet to dry dressings. He has been preforming dressing changes at home and has switched from wet to dry to just a dry bandage at the superior aspect of incision Allergies No Known Allergies Allergy (Verified 07/10/23 13:05) HPI PO-LT TKA 05/23/23 NE - Confirmed HPI Details 6-7 weeks post op doign well. small sutu re abcess at top of incision is healing. no fever and chills. Improving PFSH Medical History History of infection of skin or subcutaneous tissue BPH (benign prostatic hyperplasia) Arthritis Hx of transfusion of packed red blood cells Anemia Sleep apnea Elevated cholesterol HTN (hypertension) Surgical History H/O colonoscopy History of ankle surgery Social History Household Members: Spouse Housing: House Are you a primary zoo caretaker to a significant other at home: No Do you presently have visiting nurse or other home services: No Patient Tobacco Use Status: Former Tobacco user Tobacco use type: Cigarette Substance Use Type: Marijuana service: No 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al status: disabled 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
== END 2023-07-10 13:22 | disposition home or self-care (01) ==
LOC: HO.HOS 12:48
PROVIDERS: PCP Student in an Organized Health Care Education/Training Program; Visit Provider Orthopaedic Surgery
DX: Z96.652 Presence of left artificial knee joint (principal)
CPT/HCPCS: 99024

== ENCOUNTER 2023-08-21 11:29 | Outpatient (AMB) | payer OTHER, SELFPAY ==
[2023-08-21 11:37] VITALS: BMI 37.6
--- NOTE | 2023-08-21 11:37 | MHC.OFFVIS ---
Vital Signs 08/21/23 11:37 Height 5 ft 7 in Weight 240 lb BMI 37.6 Intake Visit Reasons: PO -LT TKA 05/23/23 NE Intake Note: Ok is a 58 year old male who presents today for a post operative visit s/p Left TKA 05/23/23. Allergies No Known Allergies Allergy (Verified 07/10/23 13:05) HPI HPI PO -LT TKA 05/23/23 NE: Details: Doing well No complaints PFSH Medical History History of infection of skin or subcutaneous tissue BPH (benign prostatic hyperplasia) Arthritis Hx of transfusion of packed red blood cells Anemia Sleep apnea Elevated cholesterol HTN (hypertension) Surgical History H/O colonoscopy History of ankle surgery Social History Household Members: Spouse Housing: House Are you a primary transitional care manager to a significant other at home: No Do you presently have visiting nurse or other home services: No Patient Tobacco Use Status: Former Tobacco user Tobacco use type: Cigarette Substance Use Type: Marijuana service: No 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al status: disabled 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 Discussed dental prophylaxis. f/u 9 mo Coding Level of Care Code Global (65192) Diagnoses Status post total knee replacement, left Z96.652
== END 2023-08-21 11:38 | disposition home or self-care (01) ==
PROVIDERS: PCP Student in an Organized Health Care Education/Training Program; Visit Provider Orthopaedic Surgery
DX: Z96.652 Presence of left artificial knee joint (principal)
CPT/HCPCS: 99024

== ENCOUNTER → 2023-08-21 11:29 | Outpatient (BNVA) | payer OTHER, SELFPAY | PROVIDERS: PCP Student in an Organized Health Care Education/Training Program; Visit Provider Orthopaedic Surgery | DX: Z47.1 Aftercare following joint replacement surgery (principal); Z96.652 Presence of left artificial knee joint | CPT/HCPCS: 99212 ==

== ENCOUNTER 2023-09-27 10:00 | Outpatient (RCR) | payer OTHER, SELFPAY ==
--- NOTE | 2023-06-23 15:44 | MHC.PT.EP ---
[facility] [place] Office [place] Office [place] Office [address] [phone] F: [phone] F: [phone] F: [phone] F: [phone] Physical Therapy Plan of Care Date of Evaluation: 06/23/23 Date of Surgery: 05/23/23 Diagnosis: LEFT total knee replacement (TKR) (DOS: 05/23/23) (RS) Assessment: Patient is a 57 y.o. male who is referred to PT by Katerine Rowe PA-C with Dx of s/p LEF TKA (DOS:05/23/23). Patient impairments include slow tissue healing of incision site, limited ROM, weakness, antalgic gait, swelling. Patient current functional limitations are walking dogs, bend/squat, stair use, getting in/out of car. Patient will benefit from skilled PT to address aforementioned impairments and functional limitations to meet established goals. Frequency and Duration: The patient will be seen 2-3x/week for 8 weeks Short Term Goals: 4 weeks Patient presents with increased LEFT knee extension AROM 0 degrees to be able to normalize gait pattern with LRAD. Patient presents with increased LEFT knee flexion AROM 105 degrees to perform sit to stand from low chair. Credit Assistant Goals: 8 weeks Patient presents with increased LEFT knee quad strength 4+/5 to be able to ascend/descend reciprocal stairs with railing. Patient presents with increased LEFT knee flexion AROM 115 degrees to be able to get in/out of car. Treatment Plan: Modalities to reduce pain, spasms and effusion. Manual therapy to restore motion and function. Therapeutic exercise to improve strength and flexibility. Neuromuscular re-education for posture and balance. Therapeutic activities to return to functional activities of daily living. Electronically signed by: Rafa Thornton, PT, DPT Please sign and return to therapist. Thank you for your referral.
--- NOTE | 2023-09-27 11:55 | MHC.PT.DC ---
[facility] [place] Office [place] Office [place] [address] Lora Spaulding 140 [facility] [phone] F: [phone] F: [phone] F: [phone] F: [phone] Physical Therapy Discharge Report Diagnosis: LEFT total knee replacement (TKR) (DOS: 05/23/23) (RS) Date of Surgery: 05/23/23 Date of Evaluation: 06/23/23 Date of Discharge: 09/27/23 Treatments to Date: 11 Cancellations to Date: No Shows to Date: Discharge Status: Improved Function Independent with HEP Patient Elected to Stop Discharge Summary: Ok shows improvement in ROM, strength, swelling, tissue healing, and gait. He has been able to ambulate safely without AD, ascend/descend stairs, get out of car more easily and walk outside and mow his lawn. He reports feeling ready for discharge. I encouraged him to continue with daily exercises to improve ROM and strength as well as utilize ice. Electronically signed by: Rafa Thornton, PT, DPT Please sign and return to therapist. Thank you for your referral.
== END 2023-09-27 11:57 | disposition home or self-care (01) ==
LOC: HO.PT 10:00
PROVIDERS: PCP Family Medicine; Visit Provider Physician Assistant
DX: Z47.1 Aftercare following joint replacement surgery (principal); Z96.652 Presence of left artificial knee joint
CPT/HCPCS: 97110; 97112; 97140; 97162; 97530

== ENCOUNTER 2023-12-29 12:14 | Outpatient (AMB) | payer OTHER, SELFPAY ==
--- NOTE | 2023-12-29 12:49 | MHC.OFFVIS ---
Vital Signs 12/29/23 12:50 Height 5 ft 7 in Weight 240 lb BMI 37.6 Intake Visit Reasons: OV left knee swelling Intake Note: Ok is a 58 year old male who presents today for a follow up of his left knee s/p Left TKA 05/23/23.m Patient reports that he has had increased swelling of the left knee. He also has a lump on the medial aspect of the knee that has been present since monday. Denies injury. He is asking if he can resume wearing a knee brace Allergies No Known Allergies Allergy (Verified 07/10/23 13:05) HPI HPI OV left knee swelling: Details: Ok is a 58 year old male who presents today for a follow up of his left knee s/p Left TKA 05/23/23.m Patient reports that he has had increased swelling of the left knee. He also has a lump on the medial aspect of the knee that has been present since monday. Denies injury. He is asking if he can resume wearing a knee brace. He actually states he is doing well he just had this 1 episode where there was a small amount of swelling. He denies fevers and chills. [facility] Medical History History of infection of skin or subcutaneous tissue BPH (benign prostatic hyperplasia) Arthritis Hx of transfusion of packed red blood cells Anemia Sleep apnea Elevated cholesterol HTN (hypertension) Surgical History H/O colonoscopy History of ankle surgery Social History Household Members: Spouse Housing: House Are you a primary child care center administrator to a significant other at home: No Do you presently have visiting nurse or other home services: No Patient Tobacco Use Status: Former Tobacco user Tobacco use type: Cigarette Substance Use Type: Marijuana service: No 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al status: disabled 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 No intervention warranted. I do not recommend wearing knee brace but he can he wants to occasionally. Coding Level of Care Code Est Pt Level 3 (13322) Diagnoses Status post total knee replacement, left Z96.652
[2023-12-29 12:50] VITALS: BMI 37.6
== END 2023-12-29 13:17 | disposition home or self-care (01) ==
PROVIDERS: PCP Student in an Organized Health Care Education/Training Program; Visit Provider Orthopaedic Surgery
DX: Z47.1 Aftercare following joint replacement surgery (principal); Z96.652 Presence of left artificial knee joint
CPT/HCPCS: 99213

== ENCOUNTER → 2023-12-29 12:14 | Outpatient (BNVA) | payer OTHER, SELFPAY | PROVIDERS: PCP Student in an Organized Health Care Education/Training Program; Visit Provider Orthopaedic Surgery | DX: M25.462 Effusion, left knee (principal); Z96.652 Presence of left artificial knee joint | CPT/HCPCS: 99212 ==

== ENCOUNTER 2025-02-03 10:25 | Emergency (ER) | payer MEDICAID, SELFPAY ==
--- NOTE | ~2025-02-03 | XR_ITS ---
CLINICAL HISTORY: chest pain Chest Radiograph Comparison: None available Findings: No cardiomegaly. Normal mediastinal contours. No pneumothorax. Right lower lung zone linear opacity, likely atelectasis. Left basilar opacity. Blunting of the left costophrenic angle. Normal upper abdomen. No acute fracture. Impression: Left basilar opacity could pneumonia or atelectasis. Blunting of the left costophrenic angle may indicate a small pleural effusion. This document has been electronically signed by: Lexy Stroud MD on 02/03/2025 14:32:18
--- NOTE | ~2025-02-03 | CT_ITS ---
CLINICAL HISTORY: headache, AMS, on anticoag CT head without contrast Comparison: None provided Findings: No intra-axial mass, midline shift, hydrocephalus, or acute hemorrhage. Mild age-related cerebral hemispheric white matter ischemic changes. Complete opacification of the left mastoid air cells and middle ear cavity due to effusions or otomastoiditis. Correlate clinically. Small left frontal sinolith, and small right maxillary sinus polyp/retention cyst. The orbits are within normal limits. There is no acute fracture. IMPRESSION: No acute intracranial finding. Complete opacification of the left mastoid air cells and middle ear cavity due to effusions or otomastoiditis. Correlate clinically. This document has been electronically signed by: Yana Peoples MD on 02/03/2025 10:57:11
--- NOTE | 2025-02-03 10:30 | ECG_ITS ---
Test Reason : STROKE Blood Pressure : */* mmHG Vent. Rate : 67 BPM Atrial Rate : 67 BPM P-R Int : 168 ms QRS Dur : 84 ms QT Int : 380 ms P-R-T Axes : 30 -15 0 degrees QTcB Int : 401 ms Normal sinus rhythm Minimal voltage criteria for LVH, may be normal variant ( R in aVL ) Borderline ECG No previous ECGs available Referred By: Manny Zurita Electronically Signed By: Perry Valadez
--- NOTE | 2025-02-03 10:30 | ED.GENADULT ---
HPI - General Adult General Chief complaint: Altered Mental Status Stated complaint: WARNER @9AM,+THINNER,LETHARGIC FROM SN[facility] Time Seen by Provider: 02/03/25 10:30 History of Present Illness ED Provider: Yudith RUBIN narrative: The patient is a 59-year-old male who lives at that day [facility]. Apparently he has been there for over a month after having been discharged from [facility]. He has not been ambulatory. He has been doing rehab at the [facility]. He apparently has a history of a stroke and is on apixaban. According to paramedics the patient started complaining of a headache at around 09:00 this morning. Later he seemed much drowsy your than he typically is and the facility ultimately called an ambulance and he was brought to the hospital. Paramedics did not feel there were any lateralizing findings although the patient seemed to have a diminished level of alertness. When I spoke to the patient he did not mentioned a headache but he said that he had a pressure-like chest discomfort, as if someone was sitting on his chest. Apparently he had not been complaining of that earlier in the day. There was no report of any fever, sweats, chills. No report of any cough or sputum. The patient has a history of dementia and is a poor historian. Related Data Home Medications ?Medication ?Instructions ?Recorded ?Confirmed atorvastatin 10 mg tablet 10 mg PO BEDTIME 12/02/22 05/18/23 lisinopril 2.5 mg tablet 2.5 mg PO DAILY 12/02/22 05/18/23 secukinumab 150 mg/mL subcutaneous 150 mg subcut Q4W 12/02/22 05/18/23 syringe (Cosentyx) finasteride 5 mg tablet 2.5 mg PO DAILY 05/18/23 05/18/23 Previous Rx's ?Medication ?Instructions ?Recorded acetaminophen 325 mg tablet 650 mg (2 x 325 mg) PO Q6H PRN 05/23/23 Pain, Mild (Pain Scale 1-3) 30 days #42 tabs aspirin 325 mg tablet 325 mg PO BID 42 days #84 tabs 05/23/23 celecoxib 200 mg capsule 200 mg PO BID 30 days #60 caps 05/23/23 docusate sodium 100 mg capsule 100 mg PO BID 30 days #60 caps 05/23/23 oxycodone 5 mg tablet 5 mg PO Q4H PRN Pain, Moderate 06/02/23 (Pain Scale 4-6 7 days #42 tabs Allergies Allergy/AdvReac Type Severity Reaction Status Date / Time No Known Allergies Allergy Verified 02/03/25 10:39 Review of Systems Review of Systems: Yes all other systems are reviewed and are negative [facility] Past Medical History Medical History History of infection of skin or subcutaneous tissue BPH (benign prostatic hyperplasia) Arthritis Hx of transfusion of packed red blood cells Anemia Sleep apnea Elevated cholesterol HTN (hypertension) Surgical History H/O colonoscopy History of ankle surgery Social History Social History Household Members: Spouse Housing: House Are you a primary career placement services counselor to a significant other at home: No Do you presently have visiting nurse or other home services: No Unable to assess alcohol history related to: Unknown Patient Tobacco Use Status: Former Tobacco user Tobacco use type: Cigarette Substance Use Type: Marijuana Advance Directives: No Advance Directives Information Provided: No service: No 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al status: disabled 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 Later he was obviously awake and alert and seemed nontoxic. HENMT Other: The face is symmetrical. ?Mucous membranes moist. Eyes Other: Pupils are round equal, conjunctivae are clear, extraocular movements intact Neck Neck: Yes normal visual inspection, Yes full ROM, Yes no meningeal signs and Yes no JVD Resp Effort & Inspection: normal respiratory effort Auscultation: clear to auscultation bilaterally Cardio Rate: regular rate Rhythm: regular rhythm Heart sounds: S1 normal heart sound present and S2 normal heart sound present GI Other: Abdomen is soft and nontender Skin Other: The skin is dry and unremarkable Neuro Other: The patient seemed initially to have some degree of an it decreased level of alertness. He was lying on his stretcher with his eyes closed and would respond slowly only to loud verbal stimuli. Later however he was awake and alert with a normal mental status and a cheerful demeanor. Cranial nerves 2-12 are intact. He moves his extremities symmetrically. No obvious lateralizing findings. General: no meningeal signs Extrem Other: There is no calf swelling or tenderness. No asymmetry. No peripheral edema. Medical Decision Making Medical Decision Making MDM Narrative: The patient is a 59-year-old male who was chronically ill and lives chronically at a senior living. He has been there for about a month. He has been nonambulatory since his last hospitalization at [facility]. I spoke to his who was at the bedside who was very vague as to what the diagnosis was at [facility]. The patient has been on anticoagulation with the apixaban. The patient apparently complained of a headache this morning at the senior living beginning at around 09:00. Sometime after that he became less responsive and they called an ambulance. On arrival here he was made a code stroke to ensure that he did not have an intracranial hemorrhage because he seemed to have a decreased level of alertness. A head CT was negative. He was not exhibiting any lateralizing findings to make me think that he was having a stroke and so no angiogram was done. When I 1st spoke to the patient he was complaining of chest pressure as if a 300 lb person was sitting on his chest. His EKG was unremarkable. Although his initial presentation was most remarkable for his decreased level of alertness later he was sitting up and talking to his and eating and looked completely well. His confirms that he has a history of dementia. The patient does not seem to recall the events of earlier today and he does not recall that he complained of chest pain when he arrived. His EKGs normal and he has to normal troponins. I do not think this is an acute coronary syndrome. The patient had a chest x-ray that suggested a possible left basilar opacity which could be ?pneumonia or atelectasis. ? I do not think the patient is exhibiting symptoms of pneumonia. He has no fever. He is not coughing. Since the patient looks so much better and is quite cheerful at this point I think he may return to his senior living. His says he has had unusual episodes like this before without a clear diagnosis. He does not have a history of a seizure disorder. His says that when he was at [facility] he was investigated for seizures but the investigations were negative. Overall I feel his workup today is negative. He will be discharged back to his nursing facility. His seemed comfortable with this plan. Lab Data 02/03/25 11:04 02/03/25 11:04 Labs: Lab Results 02/03/25 02/03/25 02/03/25 Range/Units 11:04 11:09 12:02 WBC 9.1 (4.8-10.8) X10*3/uL RBC 4.65 (4.60-5.80) X10*6/uL Hgb 12.7 L (14.0-18.0) g/dl Hct 40.2 L (42.0-52.0) % MCV 86.5 (80.0-98.0) fL MCH 27.3 (27.0-33.0) pg MCHC 31.6 (31.0-36.0) g/dl RDW 15.2 (11.0-16.0) % Plt Count 170 D (160-400) X10*3/uL MPV 11.2 (9.4-12.4) fL Immature Gran % (Auto) 0.4 (0.0-0.4) % Neut % (Auto) 67.4 (45-73) % Lymph % (Auto) 20.0 (20-40) % [place] % (Auto) 9.6 (2-11) % Eos % (Auto) 2.4 (0-4) % Baso % (Auto) 0.2 (0-2) % Lymph # (Auto) 1.8 (1.2-4.9) X10*3/uL [place] # (Auto) 0.9 (0.1-1.2) X10*3/uL Eos # (Auto) 0.2 (0.0-0.4) X10*3/uL Baso # (Auto) 0.0 (0.0-0.2) X10*3/uL Abs Immat Gran (auto) 0.04 H (0.00-0.03) X10*3/uL Absolute Neuts (auto) 6.1 (2.0-8.3) x10*3/uL Absolute Nucleated RBC 0.000 (0.0-0.012) X10*3/uL Nucleated RBC % (auto) 0.0 (0.0-0.2) /100WBC PT 14.1 H (10.9-12.4) SEC INR 1.2 H (0.9-1.1) APTT 28.7 (26.7-34.1) SEC Sodium 141 (135-145) mmol/L Potassium 4.5 (3.3-5.1) mmol/L Chloride 108 (96-108) mmol/L Carbon Dioxide 27 (22-29) mmol/L Anion Gap 11 L (12-20) BUN 20 H (9-16) mg/dL Creatinine 1.15 (0.5-1.4) mg/dL Estim Creat Clear Calc 73.0 Estimated GFR > 60 POC Glucose 74 116 H (60-115) mg/dL Random Glucose 76 (60-115) mg/dL Calcium 9.6 (8.4-10.2) mg/dL Troponin I High Sens < 2.7 (<3.5-35.0) ng/L Triglycerides 158 H (<150) mg/dL Cholesterol 164 (<200) mg/dL LDL Cholesterol, Calc 94 (<100) mg/dL HDL Cholesterol 39 L (>40) mg/dL Ethyl Alcohol < 10 mg/dL 02/03/25 Range/Units 14:41 WBC (4.8-10.8) X10*3/uL RBC (4.60-5.80) X10*6/uL Hgb (14.0-18.0) g/dl Hct (42.0-52.0) % MCV (80.0-98.0) fL MCH (27.0-33.0) pg MCHC (31.0-36.0) g/dl RDW (11.0-16.0) % Plt Count (160-400) X10*3/uL MPV (9.4-12.4) fL Immature Gran % (Auto) (0.0-0.4) % Neut % (Auto) (45-73) % Lymph % (Auto) (20-40) % [place] % (Auto) (2-11) % Eos % (Auto) (0-4) % Baso % (Auto) (0-2) % Lymph # (Auto) (1.2-4.9) X10*3/uL [place] # (Auto) (0.1-1.2) X10*3/uL Eos # (Auto) (0.0-0.4) X10*3/uL Baso # (Auto) (0.0-0.2) X10*3/uL Abs Immat Gran (auto) (0.00-0.03) X10*3/uL Absolute Neuts (auto) (2.0-8.3) x10*3/uL Absolute Nucleated RBC (0.0-0.012) X10*3/uL Nucleated RBC % (auto) (0.0-0.2) /100WBC PT (10.9-12.4) SEC INR (0.9-1.1) APTT (26.7-34.1) SEC Sodium (135-145) mmol/L Potassium (3.3-5.1) mmol/L Chloride (96-108) mmol/L Carbon Dioxide (22-29) mmol/L Anion Gap (12-20) BUN (9-16) mg/dL Creatinine (0.5-1.4) mg/dL Estim Creat Clear Calc Estimated GFR POC Glucose (60-115) mg/dL Random Glucose (60-115) mg/dL Calcium (8.4-10.2) mg/dL Troponin I High Sens 3.4 (<3.5-35.0) ng/L Triglycerides (<150) mg/dL Cholesterol (<200) mg/dL LDL Cholesterol, Calc (<100) mg/dL HDL Cholesterol (>40) mg/dL Ethyl Alcohol mg/dL Discharge Plan Discharge Clinical Impression: Headache, Chest pressure Patient Disposition: [facility] Additional Instructions: With regard to his headache he has a negative head CT. After arriving here he complained of some chest pressure. He has negative troponins and a normal EKG. Other testing is unremarkable. Please resume usual care. Please have him follow up with his regular providers. Return to the emergency room if worse. Prescriptions: No Action oxycodone 5 mg tablet 5 mg PO Q4H PRN (Reason: Pain, Moderate (Pain Scale 4-6) 7 Days Qty: 42 0RF Rx Instructions: Partial Fill upon patient request. finasteride 5 mg tablet 2.5 mg PO DAILY celecoxib 200 mg Capsule 200 mg PO BID 30 Days Qty: 60 0RF acetaminophen 325 mg Tablet 650 mg PO Q6H PRN (Reason: Pain, Mild (Pain Scale 1-3)) 30 Days Qty: 42 0RF aspirin 325 mg Tablet 325 mg PO BID 42 Days Qty: 84 0RF docusate sodium 100 mg Capsule 100 mg PO BID 30 Days Qty: 60 0RF lisinopril 2.5 mg tablet 2.5 mg PO DAILY atorvastatin 10 mg tablet 10 mg PO BEDTIME Cosentyx 150 mg/mL syringe 150 mg subcut Q4W Referrals: Yamini Domingo [Outside] Print Language: Vincentian
[2025-02-03 10:38] VITALS: BP 108/62; PULSE 66; RESP 17; TEMP 36.5; O2SAT 97; BMI 30.2
--- NOTE | 2025-02-03 11:10 | PC.NURSE ---
Addendum entered by Cathie Metz RN 02/03/25 11:57: Late entry: On pt arrival MD bedside and stated iStat PT/INR not needed. Also requested CT without con be done. Pt taken to CT immediately on arrival. Original Note: Pt BIBA from SN[facility]- reported to have c/o h/a approx 0900 and then became increasingly lethargic. On arrival pt presenting with eyes closed, arousable to name. Able to answer questions appropriatley, stroke alert called approx 1030. RN accompanied pt to CT. Labs collected and sent 18G to right hand, placed on bedside monitor. VSS. Pt reports feeling chest pressure, EKG obtained. Bedside swallow complete and pt given juice for POC 74. aware.
--- OUTSIDE RECORDS SUMMARY | 2025-02-03 11:10 | XMS_ITS | Encounter Summary ---
Author Organization [facility] Address [address] [place] [address] Care Team Providers Care Servicenow Administrator Name Role Phone Pito Capellan MD Primary Care Provider [phone] Reason for Visit * Reason Onset Date Comments Fax dx list 01/08/2025 Encounter Details Date Type Department Care Team ([facility] Contact Info) Description 01/08/2025 Telephone Internal Medicine - [place] [address] [facility] [address] [place] [address] Pito Capellan MD [address] [facility] [address] [place] [address] Social History Tobacco Use Types Packs/Day Years Used Date Smoking Tobacco: Former Cigarettes Q uit: 04/24/2010 Smokeless Tobacco: Never Alcohol Use Standard Drinks/Week Comments Not Currently 0 (1 standard drink = 0.6 oz pur e alcohol) Housing Instability Answer Date Recorde d Are you worried that in the next 2 months you may not have stable housing? No 06/28/2024 Food Access & Nutrition Answer Date Rec orded Do you have access to a vari ety of food including fruits and vegetables? Yes 06/28/2024 Access to Healthcare Answer Date Record ed Within the last 3 months, daksha najera many times did you visit the emergency department for your medical care? 0 06/28/2024 Health Literacy Answer Date Recorded How often do you need to hav e someone help you when you read instructions, pamphlets, or other written material from your doctor or pharmacy? Never 06/28/2024 Caregiver: How often do you need to have someone help you when you read instructions, pamphlets, or other written material from your doctor or pharmacy? Not on file 06/28/2024 Financial Risk Answer Date Recorded How hard is it for you to pa y for the very basics like food, housing, medical care, and air conditioning / heating? Not very hard 06/28/2024 Transportation Answer Date Recorded Has the lack of transportati on kept you from meetings, work, or from getting things needed for daily living? No Has the lack of transportati on kept you from medical appointments or from getting medications? No 06/28/2024 Social Isolation Answer Date Recorded How often do you feel lonely or isolated from th ose around you? Never 06/28/2024 Food Risk Answer Date Recorded Within the past 12 months we worried whether our food would run out before we got money to buy more. Unable to respond 025 Within the past 12 months th e food we bought just didn't last and we didn't have money to get more. Unable to respond 07/24 Education Answer Date Recorded Do you think completing more education or training, like finishing a GED, going to college, or learning a trade, would be helpful for you? No 06/28/2024 Employment and Income Answer Date Recor ded During the last four weeks, have you been actively looking for work? No 06/28/2024 Living Situation Answer Date Recorded What is your living situation? Unrecognized valu e 06/28/2024 Interpersonal Safety Answer Date Record ed Physical Abuse Unrecognized value 12/31/2024 Verbal Abuse Unrecognized value 12/31/2024 Sex and Gender Information Value Date Recorded Sex Assigned at Male 01/31/2024 12:03 AM EDT Legal Sex Male 8:40 PM EST Gender Identity Male 01/31/2024 12:03 AM EDT Sexual Orientation Straight 01/31/2024 12 :03 AM EDT documented as of this encounter Functional Status * Are you deaf or do you have serious difficulty hearing? Answer Date of Assessment Author No 12/26/2024 3:17 PM EDT Yesenia Linda RN * Are you blind or do you have serious difficulty seeing, even when wearing glasses? Answer Date of Assessment Author No 12/26/2024 3:17 PM EDT Yesenia Linda RN * Do you have serious difficulty walking or climbing stairs? Answer Date of Assessment Author Yes 12/26/2024 3:17 PM EDT Yesenia Linda RN * Do you have serious difficulty dressing or bathing? Answer Date of Assessment Author Yes 12/26/2024 3:17 PM EDT Yesenia Linda RN * Because of a physical, mental, or emotional condition, do you have serious difficulty doing errandsalone such as visiting the doctor? Answer Date of Assessment Author Yes 12/26/2024 3:17 PM EDT Yesenia Linda RN documented as of this encounter Mental Status * Because of a physical, mental, or emotional condition, do you have serious difficulty concentrating, remembering, or making decisions? (5 years old or older) Answer Entry Date Author No 12/26/2024 3:17 PM EDT Yesenia Linda RN documented in this encounter Progress Notes * Merlene Brower MA - 01/09/2025 12:14 PM EDT Copy of diagnosis list was faxed to number provided. * Tiff Webb - 01/08/2025 11:58 AM EDT Berenice from [facility] called and requested a copy of the patients diagnoses list. Please advise # [phone] anaid mackey documented in this encounter Plan of Treatment Not on file documented as of this encounter Visit Diagnoses Not on filedocumented in this encounter Additional Health Concerns Assessment Noted Time PHQ-9 Depression Total Score: 8 07/09/19 25 2:02 PM EDT documented as of this encounter Care Teams Servicenow Administrator Relationship Specialty Start Date End Date Pito Capellan MD [address] [place] [id number] PCP - General 08/12/22 documented as of this encounter
--- OUTSIDE RECORDS SUMMARY | 2025-02-03 11:10 | XMS_ITS | Clinical Summary ---
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 03/09/20 20 Active finasteride (PROSCAR) 5 mg tablet Take 1 tablet (5 mg total) by mouth 1 (one) time each day. 01/14/20 20 Active secukinumab (Cosentyx Pen, 2 Pens,) 150 mg/mL pen injector 09/12/19 20 Active cholecalciferol (VITAMIN D-3) 50 mcg (2,000 unit) tablet Take 1 tablet (2,000 Units total) by mouth 1 (one) time each day. 90 tablet 3 04/08/20 24 025 Active ferrous sulfate 325 mg (65 mg elemental iron) tablet Take 1 tablet (325 mg total) by mouth 1 (one) time each day. 90 each 3 04/08/20 24 025 Active pravastatin (PRAVACHOL) 40 mg tablet TAKE 1 TABLET BY MOUTH EVERY DAY 90 tablet 1 06/25/19 25 Active food supplemt, lactose-reduced (Boost) 0.04 gram- 1 kcal/mL liquidIndications :Generalized weakness Take 1 Bottle by mouth 2 (two) times a day. 50 each 3 07/12/19 25 Active ascorbic acid (VITAMIN C) 500 mg CR capsule Take 1 capsule (500 mg total) by mouth. Active omeprazole (PriLOSEC) [address] capsule Take 1 capsule (40 mg total) by mouth 1 (one) time each day. Do not crush or chew. Active gabapentin (NEURONTIN) 100 mg capsule Take 1 capsule (100 mg total) by mouth every 12 (twelve) hours. 08/30/19 25 026 Active multivitamin tablet Take 1 tablet by mouth 1 (one) time each day. 08/31/19 25 Active metoprolol succinate (TOPROL-XL) 50 mg 24 hr tablet Take 1 tablet (50 mg total) by mouth 1 (one) time each day. Do not crush or chew. 30 each 09/05/19 25 Active Additional Information Patient not taking.Reported on 12/27/2024 mirtazapine (REMERON) 15 mg tablet Take 1 tablet (15 mg total) by mouth at bedtime. 30 each 5 12/25/19 25 026 Active Lexapro 10 mg tablet Take 1 tablet (10 mg total) by mouth 1 (one) time each day. 10/06/19 25 Active metoprolol tartrate (LOPRESSOR) 50 mg tablet Take 1 tablet (50 mg total) by mouth 1 (one) time each day. 09/06/19 25 Active memantine (NAMENDA) 5 mg tablet Take 1 tablet (5 mg total) by mouth 1 (one) time each day. Active apixaban (ELIQUIS) 5 mg tablet Take 1 tablet (5 mg total) by mouth 2 (two) times a day. 01/08/20 25 025 Active senna (SENOKOT) 8.6 mg tablet Take 2 tablets (17.2 mg total) by mouth 2 (two) times a day. 01/08/20 25 025 Active aluminum-magnesiu m hydroxide-simethi cone (Maalox Advanced) 200-200-20 mg/5 mL suspension Take 30 mL by mouth 4 (four) times a day (before meals and nightly). 769 mL 11 07/17/19 25 025 Discontin ued(Stop Taking at Discharge ) memantine (NAMENDA) 5 mg tablet Take 1 tablet (5 mg total) by mouth 1 (one) time each day. 08/31/19 025 Discontin ued(Stop Taking at Discharge ) LORazepam (ATIVAN) 0.5 mg tablet Take 1 tablet (0.5 mg total) by mouth every 12 hours. Max Daily Amount: 1 mg 11/21/19 025 Discontin ued(Stop Taking at Discharge ) Active Problems Problem Noted Date Diagnosed Date DVT (deep venous thrombosis) ([facility] V24, [facility] V28) 12/31/2024 Dementia ([facility] V24, [facility] V28) 12/24/2024 Sinus tachycardia 08/25/2024 Back pain 08/13/2024 Glaucoma 08/13/2024 Hyperglycemia 08/13/2024 Metabolic encephalopathy 08/04/2024 Acute pancreatitis 07/05/2024 Anemia 02/29/2024 Fatigue 02/29/2024 Pedunculated colonic polyp 02/29/2024 Overview (02/29/2024): At internal hemorrhoids Perianal fistula 02/29/2024 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 Thyroid nodule 11/22/2022 COVID-19 virus infection 05/27/2021 Anemia in other chronic diseases classified else where 11/04/2019 Iron deficiency anemia 11/04/2019 Prediabetes 07/16/2019 Alcohol dependence in sustai kristel full remission ([facility] V24, [facility] V28) 06/11/2019 Hidradenitis suppurativa 06/11/2019 Overview (02/29/2024): Chronic, Severe, multiple areas, sees Dr Piper Allergic rhinitis 10/06/2017 Herpes simplex without complication 10/06/2017 Obstructive sleep apnea on CPAP 10/06/2017 Osteoarthritis of left knee 10/06/2017 Overview (02/29/2024): Uses brace Primary hypertension 10/06/2017 Severe obesity (BMI 35.0-39. 9) with comorbidity ([facility], [facility]) 10/06/2017 Thrombocytopenia ([facility]) 10/06/2017 Degenerative arthritis of lumbar spine 8 Hyperlipemia 10/06/2017 Resolved Problems Problem Noted Date Diagnosed Date Resolved Date Syncope and collapse 06/29/2024 025 Recurrent syncope 06/27/2024 07/01/2024 Encounters Date Type Department Care Team Description 01/15/2025 Telephone Internal Medicine [facility] [address] [address] Varun Goyal [place] 01/09/2025 [facility] [address] [phone] Mayra Barbour [place] 01/08/2025 Telephone Internal [facility] [address] [address] Pito Capellan MD 12/27/2024 [facility] [address] [address] Pito Capellan MD 12/26/2024 2:14 PM EDT - 01/07/2025 10:42 AM EDT Hospital Encounter [facility] [address] [place] [address] Jesus Romo MD Kokkinos, Erika, MD Mogul, Ashley, MD Wyman, Tim, MD Lawrenz, MD Suraj Pate, MD Justin Antoine Rizwan, MD Rasul, Yar M, MD Frequent falls (Primary Dx); Cerebral neurodegenerative disease ([facility] [place]); Deep vein thrombosis (DVT) of proximal vein of both lower extremities, unspecified chronicity ([facility], [facility] V28); DVT (deep venous thrombosis) ([facility], [facility] V28) Discharge Disposition: Group Home Facility 12/26/2024 [facility] [address] [address] Pito Capellan MD 12/25/2024 [facility] [address] [address] Pito Capellan MD 12/25/2024 [facility] [address] [address] Pito Capellan MD 12/24/2024 1:30 PM EDT Telemedicine Internal [address] [address] Pito Capellan MD Dementia, unspecified dementia severity, unspecified dementia type, unspecified whether behavioral, psychotic, or mood disturbance or anxiety ([facility] V24, [facility] V28) (Primary Dx); Anxiety and depression; Insomnia, unspecified type 12/24/2024 [facility] [address] [address] Pito Capellan MD 12/18/2024 [facility] [address] [address] Pito Capellan MD 12/13/2024 [facility] [address] [address] Varun Goyal [place] 12/06/2024 [facility] [address] [address] Pito Capellan MD from Last 3 Months Immunizations Immunization Administration Dates Next Due Influenza Quadravalent, MDCK , 0.5ml, preservative free (Flucelvax) 6mo and older 03/30/2024,01/11/2023,01/03/2019 Influenza trivalent, 0.5mL, preservative free (Fluarix; FluLaval; Fluzone) ages 6mo and older (Afluria) 3 years and older 01/11/2017 Pfizer SARS-CoV-2 COVID-19, mRNA, LNP-S, preservative free 03/24/2022,09/29/2020,09/08/2020 Pneumococcal conjugate 20 va lent (Prevnar 20, PCV 20) 2mo and older 04/03/2024 Tb Skin Test 02/12/2018 Td Tetanus diptheria (Tdvax) 7yo and older 08/28,03/09/2001 Tdap Tetanus diptheria acell ular pertussis (Boostrix; Adacel) 7yo and older 01/11/2023 Surgical History Surgery Date Site/Laterality Comments COLONOSCOPY 2016 PROCEDURE: HISTORICAL COLONOSCOPY; COMMENT: [employer]. Bleeding internal hemorrhoids. Repeat in 10 years. ESOPHAGOGASTRODUODENOSCOPY PROCEDURE: [place] EGD TRANSORAL BIOPSY SINGLE/MULTIPLE; COMMENT: Performed with colonoscopy with Dr. Bhardwaj COLONOSCOPY PROCEDURE: HISTORICAL COLONOSCOPY; COMMENT: Performed with EGD in 2019 with ANKLE SURGERY Right PROCEDURE: HISTORICAL ANKLE SURGERY TONSILLECTOMY ADENOIDECTOMY KNEE SURGERY Medical History Medical History Date Comments Degenerative arthritis of lumbar spine 10/06/2017 DX:Degenerative arthritis of lumbar spine Hyperlipemia 10/06/2017 DX:Hyperlipemia Hypertension 10/06/2017 DX:Hypertension Osteoarthritis of left knee 10/06/2017 DX:O steoarthritis of left knee; COMMENT: Uses brace Thrombocytopenia (CMS/HCC V24) 10/06/2017 D X:Thrombocytopenia (HCC) Allergic rhinitis 10/06/2017 DX:Allergic rh initis Herpes simplex without complication 10/06/2017 DX:Herpes simplex without complication Hidradenitis suppurativa 06/11/2019 DX:Hidr adenitis suppurativa; COMMENT: Chronic, Severe, multiple areas, sees Dr Piper Severe obesity (BMI 35.0-39. 9) with comorbidity (CMS/HCC V24, CMS/HCC V28) 10/06/2017 DX:Severe obesi ty (BMI 35.0- 39.9) with comorbidity (HCC) Alcohol dependence in sustai kristel full remission (CMS/HCC V24, CMS/HCC V28) 06/11/2019 DX:Alcohol depend ence in sustained full remission (HCC) Severe obstructive sleep apnea D X:Severe obstructive sleep apnea Anemia DX:Anemia Pedunculated colonic polyp DX:Pe dunculated colonic polyp; COMMENT: At internal hemorrhoids Perianal fistula DX:Perianal fis micha Pilonidal fistula DX:Pilonidal f istula Fatigue DX:Fatigue Family History Medical History Relation Name Comments Diabetes Aunt CAD No Known Problems Brother Lung cancer Father Other: other lung disease Father No Known Problems Maternal Grandfather No Known Problems Maternal Grandmother Diabetes Mother No Known Problems Other No Known Problems Paternal Grandfather No Known Problems Paternal Grandmother Thyroid disease Sister No Known Problems Uncle Blindness Neg Hx Cataracts Neg Hx Glaucoma Neg Hx Macular degeneration Neg Hx Strabismus Neg Hx Relation Name Status Comments Aunt Brother Father Maternal Grandfather Maternal Grandmother Mother Other Paternal Grandfather Paternal Grandmother Sister Uncle Social History Tobacco Use Types Packs/Day Years Used Date Smoking Tobacco: Former Cigarettes Q uit: 04/24/2010 Smokeless Tobacco: Never Tobacco Cessation:Counseling Given: Not Answered Alcohol Use Standard Drinks/Week Comments Not Currently [...] Record ed Within the last 3 months, ho w many times did you visit the emergency [...] Orientation Straight 01/31/2024 12 :03 AM EDT Obstetrics History Last Filed Vital Signs Vital Sign Reading Time Taken Comments Blood Pressure 135/86 01/07/2025 7:48 AM EDT Pulse 55 01/07/2025 7:48 AM EDT Temperature 36.5 C (97.7 F) 01/07/2025 7:48 AM EDT Respiratory Rate 18 01/07/2025 7:48 AM EDT Oxygen Saturation 100% 01/07/2025 7:48 AM EDT Inhaled Oxygen Concentration - - Weight 82.2 kg (181 lb 4 oz) 12/31/2024 2:14 AM EDT Height 170.2 cm (5' 7 ) 12/31/2024 2:14 AM EDT Body Mass Index 28.39 12/31/2024 2:14 AM EDT Plan of Treatment Health Maintenance Due Date Last Done Comments Hepatitis A Vaccines (1 of 2 - Risk 2-dose series) 1984 Hepatitis B Vaccines (1 of 3 - 19+ 3-dose series) 1984 Zoster Vaccines (1 of 2) 1984 COVID-19 Vaccine (5 - season) 2024 03/24/2022, 04/06/2021, 09/29/2020, Additional history exists Influenza Vaccine (#1) 2024 , 01/11/2023, 04/06/2021, Additional history exists Social Influencers of Health Screening 08/12/2025 08/12/2024, 04/03/2024 Hypertension/CHF/CAD Annual BMP Blood Test 01/07/2026 01/07/2025, 01/06/2025, 01/05/2025, Additional history exists Cholesterol Screening (Lipid Panel) 04/03/2029 04/03/2024, 09/09/2022 DTaP,Tdap,and Td Vaccines (4 - Td or Tdap) 01/11/2033 01/11/2023, 08/29/2011, 03/09/2001 Colorectal Cancer Screening: Colonoscopy 07/04/2034 07/04/2024, 07/01/2024, 10/15/2019 RSV Immunization Adult Patients (1 - 1-dose 75+ series) 2040 Hepatitis C Screening Completed 04/03/2024 Pneumococcal Vaccine: 50+ Years Completed 04/03/2024 HIV Screening Completed 07/06/2024 Depression Screening Completed 07/08/2024 HIB Vaccines Aged Out No longer eligi ble based on patient's age to complete this topic HPV Vaccines Aged Out No longer eligi ble based on patient's age to complete this topic IPV Vaccines Aged Out No longer eligi ble based on patient's age to complete this topic MMR Vaccines Aged Out No longer eligi ble based on patient's age to complete this topic Meningococcal ACWY Vaccine Aged Out N o longer eligible based on patient's age to complete this topic Meningococcal B Vaccine Aged Out No l onger eligible based on patient's age to complete this topic RSV Immunization Patients Under 20 months Aged Out No longer eligible based on patient's age to complete this topic Varicella Vaccines Aged Out No longer eligible based on patient's age to complete this topic Procedures Procedure Name Priority Date/Time Associated Diagnosis Comments BASIC METABOLIC PANEL Timed 01/07/2025 6:37 AM EDT LAVENDER - EDTA Routine 01/07/2025 6:34 AM EDT EXTRA TUBES Routine 01/07/2025 6:34 AM EDT LAVENDER - EDTA Routine 01/06/2025 6:27 AM EDT EXTRA TUBES Routine 01/06/2025 6:27 AM EDT BASIC METABOLIC PANEL Timed 01/06/2025 6:27 AM EDT BASIC METABOLIC PANEL Timed 01/05/2025 6:41 AM EDT LAVENDER - EDTA Routine 01/05/2025 6:38 AM EDT EXTRA TUBES Routine 01/05/2025 6:38 AM EDT POCT GLUCOSE BLOOD Routine 01/04/2025 9: 57 AM EDT BASIC METABOLIC PANEL Timed 01/04/2025 6:43 AM EDT CBC WITH AUTO DIFFERENTIAL Add-On 01/04/2025 6:40 AM EDT CBC AND DIFFERENTIAL Add-On 01/04/2025 6:40 AM EDT LAVENDER - EDTA Routine 01/04/2025 6:40 AM EDT EXTRA TUBES Routine 01/04/2025 6:40 AM EDT BASIC METABOLIC PANEL Timed 01/03/2025 6:33 AM EDT LAVENDER - EDTA Routine 01/03/2025 6:30 AM EDT EXTRA TUBES Routine 01/03/2025 6:30 AM EDT LAVENDER - EDTA Routine 01/02/2025 6:48 AM EDT EXTRA TUBES Routine 01/02/2025 6:48 AM EDT BASIC METABOLIC PANEL Timed 01/02/2025 6:48 AM EDT BASIC METABOLIC PANEL Timed 01/01/2025 6:26 AM EDT COMPLETE BLOOD COUNT Timed 01/01/2025 6:26 AM EDT XR KNEE 4+ VIEWS LEFT Routine 12/31/2024 3:07 PM EDT MAGNESIUM Routine 12/31/2024 6:24 AM EDT BASIC METABOLIC PANEL Routine 12/31/2024 6:24 AM EDT COMPLETE BLOOD COUNT Routine 12/31/2024 6:24 AM EDT HEPARIN AND LOW MOLECULAR WEIGHT ANTI XA LEVEL STAT 12/31/2024 2:59 AM EDT ACTIVATED PARTIAL THROMBOPLASTIN TIME STAT 12/31/2024 2:59 AM EDT PROTHROMBIN TIME WITH INR STAT 12/31/2024 2:[address] HEAD WO CONTRAST STAT 12/31/2024 1 :04 AM EDT LACTATE STAT 12/30/2024 11:38 PM EDT VAS US DUPLEX LOWER EXT VENOUS BILAT STAT 12/30/2024 11:23 PM EDT Frequent falls CT ABDOMEN PELVIS W CONTRAST STAT 12/30/2024 6:53 PM EDT BASIC METABOLIC PANEL STAT 12/30/2024 5:05 PM EDT COMPLETE BLOOD COUNT STAT 12/30/2024 5:05 PM EDT CULTURE WOUND WITH GRAM STAIN STAT 12/30/2024 5:05 PM EDT MAGDALENO URINE CULTURE TUBE STAT 12/29/2024 8:37 AM EDT URINALYSIS WITH REFLEX MICROSCOPIC AND CULTURE STAT 12/29/2024 8:37 AM EDT URINALYSIS WITH REFLEX MICROSCOPIC AND CULTURE STAT 12/29/2024 8:37 AM EDT CULTURE URINE STAT 12/29/2024 8:37 AM EDT BASIC METABOLIC PANEL STAT 12/29/2024 8:10 AM EDT COMPLETE BLOOD COUNT STAT 12/29/2024 8:10 AM EDT XR PELVIS 1-2 VIEWS STAT 12/26/2024 3 :43 PM EDT XR SACRUM COCCYX 2+ VIEWS STAT 12/26/2024 3:43 PM EDT HIV 1, 2 ANTIBODY, P24 ANTIGEN WITH REFLEX TO DIFFERENTIATION Add-On 07/06/2024 5:31 AM EDT EXTERNAL COLONOSCOPY REPORT 07/04/2024 HEPATITIS C ANTIBODY Routine 04/03/2024 12:39 PM EST Osteoarthritis of left knee, unspecified osteoarthritis type LIPID PANEL WITH REFLEX TO DIRECT LDL Routine 04/03/2024 12:39 PM EST Osteoarthritis of left knee, unspecified osteoarthritis type Encounter for lipid screening for cardiovascular disease from Last 3 Months or Most Recently Relevant to Health Maintenance Results * (ABNORMAL) Basic metabolic panel (01/07/2025 6:37 AM EDT) Only the most recent of10 resultswithin the time period is included. Sodium 139 133 - 145 mmol/L LAB CHEMISTRY METHOD 01/07/2025 7:52 AM [facility] Potassium 4.3 3.5 - 5.5 mmol/L LAB CHEMISTRY METHOD 01/07/2025 7:52 AM [facility] Chloride 105 96 - 110 mmol/L LAB CHEMISTRY METHOD 01/07/2025 7:52 AM [facility] CO2 29 21 - 32 mmol/L LAB CHEMISTRY METHOD 01/07/2025 7:52 AM [facility] Anion Gap 5 3 - 11 LAB CHEMISTRY METHOD 01/07/2025 7:52 AM [facility] Glucose 90 70 - 100 mg/dL LAB CHEMISTRY METHOD 01/07/2025 7:52 AM [facility] BUN 26(H) 5 - 25 mg/dL LAB CHEMISTRY METHOD 01/07/2025 7:52 AM [facility] Creatinine 1.25 0.70 - 1.30 mg/dL LAB CHEMISTRY METHOD 01/07/2025 7:52 AM [facility] eGFR 66 >=60 mL/min/1. 73m2 LAB CHEMISTRY METHOD 01/07/2025 7:52 AM [facility] Comment:Calculation based on the Chronic Kidney Disease Epidemiology Collaboration (CKD-EPI) equation refit without adjustment for race. BUN/Creatinine Ratio 20.8 LAB CHEMISTRY METHOD 01/07/2025 7:52 AM [facility] Calcium 9.8 8.5 - 10.5 mg/dL LAB CHEMISTRY METHOD 01/07/2025 7:52 AM [facility] Blood Venous blood specimen / Unknown Venipuncture / Unknown 01/07/2025 6:37 AM EDT 01/07/2025 7:04 AM EDT us Jesus Manuel Jose MD LAB BLOOD ORDERABLES Final Resul t [facility] [address] [place] [address], [place] [phone] * Lavender tube (01/07/2025 6:34 AM EDT) Only the most recent of6 resultswithin the time period is included. [facility] Extra Tube Hold for add-ons. 01/07/2025 9:01 AM EDT [facility] Comment:Auto resulted. Blood Venous blood specimen / Unknown 01/07/2025 6:34 AM EDT 01/07/2025 7:06 AM EDT us Jesus Manuel Jose MD LAB BLOOD ORDERABLES Final Resul t [facility] [address] [place] [address], [place] [phone] * POCT Glucose, blood (01/04/2025 9:57 AM EDT) [facility] Glucose POCT 93 70 - 100 mg/dL 01/04/2025 9:57 AM EDT [facility] Blood Capillary blood specimen / Unknown 01/04/2025 9:57 AM EDT 01/04/2025 9:58 AM EDT us Jesus Manuel Jose MD LAB POINT OF CARE TE ST DOCKED DEVICE UNSOLICITED RESULTS Final Result [facility] [address] [place] [address], [place] [phone] * (ABNORMAL) CBC auto differential (01/04/2025 6:40 AM EDT) [facility] WBC 8.3 4.8 - 10.8 K[facility] LAB HEMETOLOGY METHOD 01/04/2025 1:30 PM EDT [facility] RBC 4.60 4.50 - 5.50 M/[facility] LAB HEMETOLOGY METHOD 01/04/2025 1:30 PM EDT [facility] Hemoglobin 12.6(L) 13.5 - 17.5 g/dL LAB HEMETOLOGY METHOD 01/04/2025 1:30 PM EDT [facility] Hematocrit 40.7(L) 42.0 - 54.0 % LAB HEMETOLOGY METHOD 01/04/2025 1:30 PM EDT [facility] MCV 88.1 79.0 - 98.0 FL LAB HEMETOLOGY METHOD 01/04/2025 1:30 PM EDT [facility] MCH 27.3 27.0 - 32.0 pcg LAB HEMETOLOGY METHOD [facility] MCHC 31.0(L) 32.0 - 37.0 g/dL LAB HEMETOLOGY METHOD 01/04/2025 1:30 [facility] RDW 15.2(H) 11.0 - 15.0 % LAB HEMETOLOGY METHOD 01/04/2025 1:30 PM EDT [facility] Platelets 175 130 - 400 K/mcL LAB HEMETOLOGY METHOD 01/04/2025 1:30 [facility] MPV 11.6(H) 7.0 - 11.0 FL LAB HEMETOLOGY METHOD 01/04/2025 1:30 PM EDT [facility] NRBC 0.0 <1.0 % LAB HEMETOLOGY METHOD 01/04/2025 1:30 PM EDT [facility] NRBC Absolute 0.00 <0.10 K/mcL LAB HEMETOLOGY METHOD 01/04/2025 1:30 [facility] Neutrophils Relative 58.5 % LAB HEMETOLOGY METHOD 01/04/2025 1:30 PM EDT [facility] Lymphocytes Relative 29.8 % LAB HEMETOLOGY METHOD 01/04/2025 1:30 PM EDT [facility] Monocytes Relative 8.0 % LAB HEMETOLOGY METHOD 01/04/2025 1:30 PM EDT [facility] Eosinophils Relative 3.0 % LAB HEMETOLOGY METHOD 01/04/2025 1:30 PM EDT [facility] Basophils Relative 0.6 % LAB HEMETOLOGY METHOD 01/04/2025 1:30 PM EDT [facility] Immature Granulocytes Relative 0.1 % LAB HEMETOLOGY METHOD 01/04/2025 1:30 PM EDT [facility] Neutrophils Absolute 4.82 1.50 - 7.00 K/mcL LAB HEMETOLOGY METHOD 01/04/2025 1:30 PM EDT [facility] Lymphocytes Absolute 2.46 1.00 - 5.00 K/mcL LAB HEMETOLOGY METHOD 01/04/2025 1:30 PM EDT [facility] Monocytes Absolute 0.66 0.20 - 1.00 K/mcL LAB HEMETOLOGY METHOD 01/04/2025 1:30 PM EDT [facility] Eosinophils Absolute 0.25 0.00 - 0.50 K/mcL LAB HEMETOLOGY METHOD 01/04/2025 1:30 PM EDT [facility] Basophils Absolute 0.05 0.00 - 0.20 K/mcL LAB HEMETOLOGY METHOD 01/04/2025 1:30 PM EDT [facility] Immature Granulocytes Absolute 0.01 0.00 - 0.03 K/mcL LAB HEMETOLOGY METHOD 01/04/2025 1:30 PM EDT [facility] Blood Venous blood specimen / Unknown Venipuncture / Unknown 01/04/2025 6:40 AM EDT 01/04/2025 7:09 AM EDT us Jesus Manuel Jose MD LAB BLOOD ORDERABLES Final Resul t [facility] [address] [place] [address], * (ABNORMAL) CBC - Every 3 Days (01/01/2025 6:26 AM EDT) Only the most recent of4 resultswithin the time period is included. WBC 8.3 4.8 - 10.8 K/mcL LAB HEMETOLOGY METHOD 01/01/2025 6:48 AM EDT [facility] RBC 4.70 4.50 - 5.50 M/mcL LAB HEMETOLOGY METHOD 01/01/2025 6:48 AM EDT [facility] Hemoglobin 12.9(L) 13.5 - 17.5 g/dL LAB HEMETOLOGY METHOD 01/01/2025 6:48 AM EDT [facility] Hematocrit 40.1(L) 42.0 - 54.0 % LAB HEMETOLOGY METHOD 01/01/2025 6:48 AM EDT [facility] MCV 84.8 79.0 - 98.0 FL LAB HEMETOLOGY METHOD 01/01/2025 6:48 AM EDT [facility] MCH 27.3 27.0 - 32.0 pcg LAB HEMETOLOGY METHOD 01/01/2025 6:48 AM EDT [facility] MCHC 32.2 32.0 - 37.0 g/dL LAB HEMETOLOGY METHOD 01/01/2025 6:48 AM EDT [facility] RDW 14.4 11.0 - 15.0 % LAB HEMETOLOGY METHOD 01/01/2025 6:48 AM EDT [facility] Platelets 156 130 - 400 K/mcL LAB HEMETOLOGY METHOD 01/01/2025 6:48 AM EDT [facility] MPV 10.8 7.0 - 11.0 FL LAB HEMETOLOGY METHOD 01/01/2025 6:48 AM EDT [facility] NRBC 0.0 <1.0 % LAB HEMETOLOGY METHOD 01/01/2025 6:48 AM EDT [facility] NRBC Absolute 0.00 <0.10 K/mcL LAB HEMETOLOGY METHOD 01/01/2025 6:48 AM EDT [facility] Blood Venous blood specimen / Unknown Venipuncture / Unknown 01/01/2025 6:26 AM EDT 01/01/2025 6:39 AM EDT us Jesus Manuel Jose MD LAB BLOOD ORDERABLES Final Resul t [facility] [address] [place] [address], [place] [phone] * XR Knee 4+ Views Left (12/31/2024 3:07 PM EDT) Anatomical Region Laterality Modality Lower Extremities, Knee Left Radiogra phic Imaging 12/31/2024 3:44 PM EDT Impressions 12/31/2024 3:44 PM EDT FINDINGS/IMPRESSION: Total knee arthroplasty with hardware intact. No acute fracture or dislocation. -------- FINAL REPORT -------- Dictated By: Jaiv Lees Dictated Date: 12/31/2024 15:44 ET Assigned Physician: Javi Lees Reviewed and Electronically Signed By: Javi Lees Signed Date: 12/31/2024 15:44 ET Workstation ID: [id number] Transcribed By: Self Edit Transcribed Date: 12/31/2024 15:44 ET Narrative 12/31/2024 3:44 PM EDT XR KNEE 4+ VIEWS LEFT INDICATION: pain TECHNIQUE: XR KNEE 4+ VIEWS LEFT COMPARISON: No priors available. Procedure Note Javi Lees MD - 12/31/2024 XR KNEE 4+ VIEWS LEFT INDICATION: pain TECHNIQUE: XR KNEE 4+ VIEWS LEFT COMPARISON: No priors available. IMPRESSION: FINDINGS/IMPRESSION: Total knee arthroplasty with hardware intact. Noacute fracture or dislocation. -------- FINAL REPORT -------- Dictated By: Javi Lees Dictated Date: 12/31/2024 15:44 ET Assigned Physician: Javi Lees Reviewed and Electronically Signed By: Javi Lees Signed Date: 12/31/2024 15:44 ET Workstation ID: [id number] Transcribed By: Self Edit Transcribed Date: 12/31/2024 15:44 ET Shanae [facility] IMG XR PROCEDURES Final Resu lt * Magnesium (12/31/2024 6:24 AM EDT) Magnesium 2.3 1.9 - 2.6 mg/dL LAB CHEMISTRY METHOD 12/31/2024 7:54 AM EDT [facility] Blood Venous blood specimen / Unknown Venipuncture / Unknown 12/31/2024 6:24 AM EDT 12/31/2024 7:16 AM EDT Shana[facility] LAB BLOOD ORDERABLES Final R esult Performing Organization Address [facility] Co de Phone Number [facility] [address] [place] [address], [place] [phone] * Activated Partial Thromboplastin Time - STAT (12/31/2024 2:59 AM EDT) aPTT 33.0 24.1 - 39.3 sec LAB COAGULATION METHOD 12/31/2024 3:20 AM EDT [facility] Blood Venous blood specimen / Unknown Venipuncture / Unknown 12/31/2024 2:59 AM EDT 12/31/2024 3:08 AM EDT Shanae BURTON LAB BLOOD ORDERABLES Final R esult Performing Organization Address City/[facility]/ZIP Co de Phone Number [facility] [address] [place] [address], [place] [phone] * Prothrombin Time with INR - STAT (12/31/2024 2:59 AM EDT) [facility] Protime 12.1 10.6 - 13.9 sec LAB COAGULATION METHOD 12/31/2024 3:20 AM EDT [facility] INR 1.0 LAB COAGULATION METHOD 12/31/2024 3:20 AM EDT [facility] Blood Venous blood specimen / Unknown Venipuncture / Unknown 12/31/2024 2:59 AM EDT 12/31/2024 3:08 AM EDT us Shanae BURTON LAB BLOOD ORDERABLES Final R esult Performing Organization Address City/[facility]/ZIP Co de Phone Number [facility] [address] [place] [address], [place] [phone] * (ABNORMAL) Anti-Xa - STAT (12/31/2024 2:59 AM EDT) [facility] Heparin Anti-Xa 0.04(L) 0.30 - 0.70 I Unit/mL LAB COAGULATION METHOD 12/31/2024 3:20 AM EDT [facility] Blood Venous blood specimen / Unknown Venipuncture / Unknown 12/31/2024 2:59 AM EDT 12/31/2024 3:08 AM EDT Narrative [facility] - 12/31/2024 3:20 AM EDT Therapeutic range listed is for Unfractionated Heparin. LMW Heparin therapeutic range: 0.50-1.20 IU/mL us Shanae BURTON LAB BLOOD ORDERABLES Final R esult [facility] [address] [place] [address], [place] [phone] * CT Head wo Contrast (12/31/2024 1:04 AM EDT) Anatomical Region Laterality Modality Head and Neck Computed Tomogra phy 12/31/2024 1:30 AM EDT Impressions 12/31/2024 1:30 AM EDT Impression: 1. No acute intracranial abnormality. No acute intracranial hemorrhage. 2. Left mastoid air cell effusion with fluid at the left middle ear. Recommend clinical correlation for possible left otomastoiditis. This document has been electronically signed by: Harshal Blas MD on 12/31/2024 01:30:32 Narrative 12/31/2024 1:30 AM EDT INDICATION: Head trauma, abnormal mental status (Age 19-64[address]) CT head without contrast Comparison: CT/SR - CT HEAD WO CONTRAST - 08/12/24 09:05 EDT Findings: No intracranial mass, midline shift, hydrocephalus, or acute hemorrhage. 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 Minimal mucosal thickening present at the right posterior ethmoid air cells and right maxillary sinus. The right mastoid air cells appear clear. The left mastoid air cells are opacified. Fluid identified within the left middle ear. No acute skull fracture. Procedure Note Harshal Blas MD - 12/31/2024 INDICATION: Head trauma, abnormal mental status (Age 19-64[address]) [address] head without contrast Comparison: CT/SR - CT HEAD WO CONTRAST - 08/12/24 09:05 EDT Findings: No intracranial mass, midline shift, hydrocephalus, or acute hemorrhage. 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 Minimal mucosal thickening present at the right posterior ethmoid air cells and right maxillary sinus. The right mastoid air cells appear clear. The left mastoid air cells are opacified. Fluid identified within the left middle ear. No acute skull fracture. IMPRESSION: Impression: 1. No acute intracranial abnormality. No acute intracranial hemorrhage. 2. Left mastoid air cell effusion with fluid at the left middle ear. Recommend clinical correlation for possible left otomastoiditis. This document has been electronically signed by: Harshal Blas MD on 12/31/2024 01:30:32 Arash Ruelas MD IM CT PROCEDURES Final Result * Lactate (12/30/2024 11:38 PM EDT) Lactate 1.3 0.4 - 2.0 mmol/L LAB CHEMISTRY METHOD 12/31/2024 12:58 AM EDT [facility] Blood Venous blood specimen / Unknown Venipuncture / Unknown 12/30/2024 11:38 PM EDT 12/31/2024 12:28 AM EDT Arash Ruelas MD LAB BLOOD ORDERABLES Final Resul t [facility] ([facility]) [facility] [address] [place] [address], [place] [phone] * Vascular US Duplex Lower Extremity Venous Bilateral (12/30/2024 11:23 PM EDT) Anatomical Region Laterality Modality Vascular, Abdomen Ultrasound 12/31/2024 12:1 6 AM EDT Addenda Addendum by Harshal Blas MD on 12/31/2024 12:21 AM EDT ADDENDUM: This report was discussed with Dr. Ruelas on Dec 31, 2024 00:21:00 EDT. This document has been electronically signed by: Whitney Larkin on 12/31/2024 00:21:37 Impressions 12/31/2024 12:16 AM EDT 1. Extensive bilateral lower extremity DVT as described above. This document has been electronically signed by: Harshal Blas MD on 12/31/2024 00:16:10 Narrative 12/31/2024 12:16 AM EDT INDICATION: DVT on CT Venous duplex ultrasound bilateral lower extremity Comparison: None provided Findings: Thrombus identified at the right common femoral vein, mid right femoral vein, and right peroneal vein. The remainder of the visualized deep veins of the right lower extremity appear patent. Thrombus identified at the left common femoral vein, left femoral vein, left popliteal vein, and left peroneal vein. No popliteal cyst. Procedure Note Harshal Blas MD - 12/31/2024 INDICATION: DVT on CT Venous duplex ultrasound bilateral lower extremity Comparison: None provided Findings: Thrombus identified at the right common femoral vein, mid right femoral vein, and right peroneal vein. The remainder of the visualized deepveins of the right lower extremity appear patent. Thrombus identified at the left common femoral vein, left femoral vein, left popliteal vein, and left peroneal vein. No popliteal cyst. IMPRESSION: 1. Extensive bilateral lower extremity DVT as described above. This document has been electronically signed by: Harshal Blas MD on 12/31/2024 00:16:10 us Arash Ruelas MD CV VASCULAR PROCEDURES Edited Re sult - Final * CT Abdomen Pelvis w Contrast (12/30/2024 6:53 PM EDT) Anatomical Region Laterality Modality Body Computed Tomogra phy 12/30/2024 7:34 PM EDT Addenda Addendum by Kecia Calzada DO on 12/30/2024 7:38 PM EDT ADDENDUM: This report was discussed with Dr. Flor on Dec 30, 2024 19:38:00 EDT. This document has been electronically signed by: Whitney Larkin on 12/30/2024 19:38:55 Impressions 12/30/2024 7:34 PM EDT 1. Subdermal soft tissue density in the posterior left gluteal region that measures 6 cm in greatest diameter may represent a phlegmon in the setting of a developing abscess versus a residual abscess cavity. No deep tissue extension or evidence for necrotizing fasciitis. 2. Bilateral iliofemoral venous filling defects consistent with deep vein thromboses. 3. No obstructive or acute inflammatory changes in the gastrointestinal and genitourinary tracts. 4. Multifocal compressive atelectasis and/or consolidations in the lower lungs, predominating in the left lower lobe. This document has been electronically signed by: Kecia Calzada DO on 12/30/2024 19:34:26 Narrative 12/30/2024 7:34 PM EDT INDICATION: left gluteal abscess CT ABDOMEN AND PELVIS WITH CONTRAST Comparison: CT/[place]/SR - CT ABD PEL WO CONTRAST - 08/04/24 14:16 EDT Findings: Prominent elevation of the left hemidiaphragm. There are confluent airspace opacities in the lingula and bilateral lower lobes. No pleural effusion. No acute abnormalities in the solid organs. Several tiny nonobstructing calculi in the left kidney. Probable tiny left renal cyst. No large calcified gallstone. No AAA. No bowel obstruction, pneumoperitoneum, or pneumatosis. Large amount of stool in the colon with rectal impaction up to 7.4 cm. There are filling defects in the bilateral external iliac and common femoral veins. The appendix is identified. No acute appendicitis. Urinary bladder and prostate unremarkable. No acute fracture. There is a soft tissue density deep to the skin surface in the posterior left gluteal region which measures 5.6 x 3.2 x 2.0 cm (Length x Height x Width) on axial image 182, coronal image 87 and sagittal image 114. There is adjacent fat stranding. No intraluminal fluid or gas component. No foreign body. Procedure Note Kecia Calzada DO - 12/30/2024 INDICATION: left gluteal abscess CT ABDOMEN AND PELVIS WITH CONTRAST Comparison: CT/[place]/SR - CT ABD PEL WO CONTRAST - 08/04/24 14:16 EDT Findings: Prominent elevation of the left hemidiaphragm. There are confluent airspace opacities in the lingula and bilaterallower lobes. No pleural effusion. No acute abnormalities in the solid organs. Several tiny nonobstructing calculi in the left kidney. Probable tinyleft renal cyst. No large calcified gallstone. No AAA. No bowel obstruction, pneumoperitoneum, or pneumatosis. Large amount of stool in the colon with rectal impaction up to 7.4 cm. There are filling defects in the bilateral external iliac and common femoral veins. The appendix is identified. No acute appendicitis. Urinary bladder and prostate unremarkable. No acute fracture. There is a soft tissue density deep to the skin surface in the posterior left gluteal region which measures 5.6 x 3.2 x 2.0 cm (Length x Height x Width) on axial image 182, coronal image 87 and sagittal image 114.There is adjacent fat stranding. No intraluminal fluid or gas component. No foreign body. IMPRESSION: 1. Subdermal soft tissue density in the posterior left gluteal regionthat measures 6 cm in greatest diameter may represent a phlegmon in thesetting of a developing abscess versus a residual abscess cavity. No deep tissue extension or evidence for necrotizing fasciitis. 2. Bilateral iliofemoral venous filling defects consistent with deepvein thromboses. 3. No obstructive or acute inflammatory changes in the gastrointestinal and genitourinary tracts. 4. Multifocal compressive atelectasis and/or consolidations in the lower lungs, predominating in the left lower lobe. This document has been electronically signed by: Kecia Calzada DO on 12/30/2024 19:34:26 Kailey Monique MD IM CT PROCEDURES Edited Result - Final * (ABNORMAL) Culture wound with gram stain (12/30/2024 5:05 PM EDT) Culture, Wound Proteus mirabilis(A) DEENA 01/03/2025 10:45 AM EDT [facility] Comment: The organism value for this result has been updated. These results have been appended to the previously preliminary verified report. Edited result: Previously reported as Proteus species on 12/31/2024 at 1328 EDT. Culture, Wound Escherichia coli(A) DEENA 01/03/2025 10:45 AM EDT [facility] Comment: The organism value for this result has been updated. These results have been appended to the previously preliminary verified report. This is an edited result. Previous organism was Gram negative bacilli on 01/01/2025 at 0942 EDT. Culture, Wound Methicillin-Resista nt Staphylococcus aureus(A) DEENA 01/03/2025 10:45 AM EDT [facility] Comment: The organism value for this result has been updated. These results have been appended to the previously preliminary verified report. Edited result: Previously reported as Gram Positive Cocci on 01/02/2025 at 0856 EDT. Culture, Wound Vancomycin resistant Enterococcus faecalis(A) DEENA 01/03/2025 10:45 AM EDT [facility] Comment: The organism value for this result has been updated. These results have been appended to the previously preliminary verified report. This is an edited result. Previous organism was Streptococcus Gamma non hemolytic on 01/02/2025 at 0856 EDT. Gram Stain Result Many Polymorphonuclear leukocytes 01/03/2025 10:45 AM EDT [facility] Gram Stain Result No epithelial cells seen 01/03/2025 10:45 AM EDT [facility] Gram Stain Result No organisms seen 01/03/2025 10:45 AM EDT [facility] Swab Abscess morphology / Unknown Non-blood Collection / Unknown 12/30/2024 5:05 PM EDT 12/30/2024 5:42 PM EDT Narrative Organism Antibiotic Method Susceptibility Proteus mirabilis Amoxicillin/Clavulanate DEENA <=2 ug/ml: Susceptible Proteus mirabilis Ampicillin/Sulbactam DEENA <=2 ug/ml: Susceptible Proteus mirabilis Piperacillin/Tazobactam DEENA <=4 ug/ml: Susceptible Proteus mirabilis Cefazolin (Other) DEENA 2 ug/ml: Susceptible Proteus mirabilis Cefoxitin DEENA <=4 ug/ml: Susceptible Proteus mirabilis Ceftazidime DEENA <=0.5 ug/ml: Susceptible Proteus mirabilis Ceftriaxone DEENA <=0.25 ug/ml: Susceptible Proteus mirabilis Cefepime DEENA <=0.12 ug/ml: Susceptible Proteus mirabilis Meropenem DEENA <=0.25 ug/ml: Susceptible Proteus mirabilis Amikacin DEENA 2 ug/ml: Susceptible Proteus mirabilis Gentamicin DEENA <=1 ug/ml: Susceptible Proteus mirabilis Ciprofloxacin DEENA <=0.06 ug/ml: Susceptible Proteus mirabilis Levofloxacin DEENA <=0.12 ug/ml: Susceptible Proteus mirabilis Trimethoprim/Sulfame thoxazo le DEENA <=20 ug/ml: Susceptible Escherichia coli Amoxicillin/Clavulanate DEENA <=2 ug/ml: Susceptible Escherichia coli Ampicillin/Sulbactam DEENA <=2 ug/ml: Susceptible Escherichia coli Piperacillin/Tazobactam DEENA <=4 ug/ml: Susceptible Escherichia coli Cefazolin (Other) DEENA <=1 ug/ml: Susceptible Escherichia coli Cefoxitin DEENA <=4 ug/ml: Susceptible Escherichia coli Ceftazidime DEENA <=0.5 ug/ml: Susceptible Escherichia coli Ceftriaxone DEENA <=0.25 ug/ml: Susceptible Escherichia coli Cefepime DEENA <=0.12 ug/ml: Susceptible Escherichia coli Meropenem DEENA <=0.25 ug/ml: Susceptible Escherichia coli Amikacin DEENA 2 ug/ml: Susceptible Escherichia coli Gentamicin DEENA <=1 ug/ml: Susceptible Escherichia coli Ciprofloxacin DEENA 0.12 ug/ml: Susceptible Escherichia coli Levofloxacin DEENA 0.25 ug/ml: Susceptible Escherichia coli Trimethoprim/Sulfame thoxazo le DEENA <=20 ug/ml: Susceptible Methicillin-Resistant Staphylococcus aureus Benzylpenicillin DEENA >=0.5 ug/ml: Resistant Methicillin-Resistant Staphylococcus aureus Oxacillin DEENA >=4 ug/ml: Resistant Methicillin-Resistant Staphylococcus aureus Gentamicin DEENA <=0.5 ug/ml: Susceptible Methicillin-Resistant Staphylococcus aureus Ciprofloxacin DEENA >=8 ug/ml: Resistant Methicillin-Resistant Staphylococcus aureus Levofloxacin DEENA >=8 ug/ml: Resistant Methicillin-Resistant Staphylococcus aureus Erythromycin DEENA >=8 ug/ml: Resistant Methicillin-Resistant Staphylococcus aureus Clindamycin DEENA <=0.25 ug/ml: Resistant Methicillin-Resistant Staphylococcus aureus Linezolid DEENA 2 ug/ml: Susceptible Methicillin-Resistant Staphylococcus aureus Vancomycin DEENA <=0.5 ug/ml: Susceptible Methicillin-Resistant Staphylococcus aureus Tetracycline DEENA <=1 ug/ml: Susceptible Methicillin-Resistant Staphylococcus aureus Rifampin DEENA <=0.5 ug/ml: Susceptible Methicillin-Resistant Staphylococcus aureus Trimethoprim/Sulfamethoxazo le DEEAN <=10 ug/ml: Susceptible Vancomycin resistant Enterococcus faecalis Benzylpenicillin DEENA 8 ug/ml: Susceptible Vancomycin resistant Enterococcus faecalis Ampicillin DEENA <=2 ug/ml: Susceptible Vancomycin resistant Enterococcus faecalis Linezolid DEENA 1 ug/ml: Susceptible Vancomycin resistant Enterococcus faecalis Vancomycin DEENA >=32 ug/ml: Resistant Kailey Monique MD LAB MICROBIOLOGY - GENERAL ORDER JOSE Final Result [facility] [address] [place] [address], * (ABNORMAL) Urinalysis with reflex microscopic and culture (12/29/2024 8:37 AM EDT) Specific [place] Urine 1.010 1.003 - 1.030 LAB URINALYSIS - AUTOMATED METHOD 12/29/2024 8:48 AM EDT [facility] pH, Urine 7.5 5.0 - 8.0 pH LAB URINALYSIS - AUTOMATED METHOD 12/29/2024 8:48 AM [facility] Leukocytes, Urine Moderate(A) Negative LAB URINALYSIS - AUTOMATED METHOD 12/29/2024 8:48 AM [facility] Nitrite, Urine Negative Negative LAB URINALYSIS - AUTOMATED METHOD 12/29/2024 8:48 AM [facility] Protein, Urine Negative <=Trace mg/dL LAB URINALYSIS - AUTOMATED METHOD 12/29/2024 8:48 AM [facility] Glucose, Urine Negative Negative mg/dL LAB URINALYSIS - AUTOMATED METHOD 12/29/2024 8:48 AM [facility] Ketones, Urine Negative Negative mg/dL LAB URINALYSIS - AUTOMATED METHOD 12/29/2024 8:48 AM [facility] Urobilinogen , Urine 0.2 0.2 - 1.0 mg/dL LAB URINALYSIS - AUTOMATED METHOD 12/29/2024 8:48 AM [facility] Bilirubin, Urine Negative Negative LAB URINALYSIS - AUTOMATED METHOD 12/29/2024 8:48 AM [facility] Blood, Urine Negative Negative LAB URINALYSIS - AUTOMATED METHOD 12/29/2024 8:48 AM [facility] RBC, Urine 0.8 0 - 4 /HPF LAB URINALYSIS - AUTOMATED METHOD 12/29/2024 8:48 AM [facility] WBC, Urine 6.0(H) 0 - 4 /HPF LAB URINALYSIS - AUTOMATED METHOD 12/29/2024 8:48 AM [facility] Squamous Epithelial, Urine 17 0 - 60 /LPF LAB URINALYSIS - AUTOMATED METHOD 12/29/2024 8:48 AM [facility] Bacteria, Urine Negative Negative /HPF LAB URINALYSIS - AUTOMATED METHOD 12/29/2024 8:48 AM [facility] Hyaline Casts, Urine 0.0 0 - 3 /LPF LAB URINALYSIS - AUTOMATED METHOD 12/29/2024 8:48 AM EDT [facility] Urine Urine specimen obtained by clean catch procedure / Unknown Non-blood Collection / Unknown 12/29/2024 8:37 AM EDT 12/29/2024 8:42 AM EDT us Kailey Monique MD LAB URINE ORDERABLES Final Resul t Performing Organization Address [facility]/ZIP Co de Phone Number [facility] [address] [place] [address], [place] [phone] * Magdaleno urine culture tube (12/29/2024 8:37 AM EDT) Extra Tube Hold for add-ons. 12/29/2024 10:01 AM EDT [facility] Comment:Auto resulted. Urine Urine specimen obtained by clean catch procedure / Unknown Non-blood Collection / Unknown 12/29/2024 8:37 AM EDT 12/29/2024 8:42 AM EDT us Kailey Monique MD LAB URINE ORDERABLES Final Resul t Performing Organization Address [facility] Co de Phone Number [facility] [address] [place] [address], [place] [phone] * (ABNORMAL) Culture urine (12/29/2024 8:37 AM EDT) Culture, Urine 10,000-49,000 CFU/mL Pseudomonas aeruginosa(A) DEENA 01/02/2025 7:35 AM EDT [facility] Comment: The organism value for this result has been updated. These results have been appended to the previously preliminary verified report. This is an edited result. Previous organism was Gram negative bacilli on 12/31/2024 at 0811 EDT. Urine Urine specimen obtained by clean catch procedure / Unknown Non-blood Collection / Unknown 12/29/2024 8:37 AM EDT 12/29/2024 8:48 AM EDT Narrative Organism Antibiotic Method Susceptibility Pseudomonas aeruginosa Piperacillin/Tazobactam DEENA 8 ug/ml: Susceptible Pseudomonas aeruginosa Ceftazidime DEENA 2 ug/ml: Susceptible Pseudomonas aeruginosa Meropenem DEENA 1 ug/ml: Susceptible Pseudomonas aeruginosa Amikacin DEENA 4 ug/ml: Susceptible Pseudomonas aeruginosa Ciprofloxacin DEENA 1 ug/ml: Intermediate Pseudomonas aeruginosa Levofloxacin DEENA 1 ug/ml: Susceptible Pseudomonas aeruginosa Cefepime DISK DIFFUSION Susceptible us Kailey Monique MD LAB MICROBIOLOGY - GENERAL ORDER JOSE Final Result [facility] ([facility]) [facility] [address] [place] [address], * XR Pelvis 1-2 Views (12/26/2024 3:43 PM EDT) Anatomical Region Laterality Modality Body, Pelvis Radiographic Rachelle ging 12/26/2024 3:54 PM EDT Impressions 12/26/2024 3:55 PM EDT FINDINGS/IMPRESSION: Degenerative changes of the hips and spine. No visible fracture. -------- FINAL REPORT -------- Dictated By: Javi Lees Dictated Date: 12/26/2024 15:54 ET Assigned Physician: Javi Lees Reviewed and Electronically Signed By: Javi Lees Signed Date: 12/26/2024 15:55 ET Workstation ID: [id number] Transcribed By: Self Edit Transcribed Date: 12/26/2024 15:54 ET Narrative 12/26/2024 3:55 PM EDT XR PELVIS 1-2 VIEWS INDICATION: Fall TECHNIQUE: XR PELVIS 1-2 VIEWS COMPARISON: No priors available. Procedure Note Javi Lees MD - 12/26/2024 XR PELVIS 1-2 VIEWS INDICATION: Fall TECHNIQUE: XR PELVIS 1-2 VIEWS COMPARISON: No priors available. IMPRESSION: FINDINGS/IMPRESSION: Degenerative changes of the hips and spine. Novisible fracture. -------- FINAL REPORT -------- Dictated By: Javi Lees Dictated Date: 12/26/2024 15:54 ET Assigned Physician: Javi Lees Reviewed and Electronically Signed By: Javi Lees Signed Date: 12/26/2024 15:55 ET Workstation ID: [id number] Transcribed By: Self Edit Transcribed Date: 12/26/2024 15:54 ET Jesus Romo MD IMG XR PROCEDURES Final Result * XR Sacrum Coccyx 2+ Views (12/26/2024 3:43 PM EDT) Anatomical Region Laterality Modality Body, Spine, Pelvis Radiographic Imaging 12/26/2024 3:53 PM EDT Impressions 12/26/2024 3:53 PM EDT FINDINGS/IMPRESSION: Negative radiographs of the sacrum. Prominent stool burden in the rectum. Osteopenia. Degenerative changes of the hips and spine. No displaced fractures are visible. -------- FINAL REPORT -------- Dictated By: Javi Lees Dictated Date: 12/26/2024 15:53 ET Assigned Physician: Javi Lees Reviewed and Electronically Signed By: Javi Lees Signed Date: 12/26/2024 15:53 ET Workstation ID: [id number] Transcribed By: Self Edit Transcribed Date: 12/26/2024 15:53 ET Narrative 12/26/2024 3:53 PM EDT XR SACRUM COCCYX 2+ VIEWS INDICATION: Fall TECHNIQUE: XR SACRUM COCCYX 2+ VIEWS COMPARISON: No priors available. Procedure Note Javi Lees MD - 12/26/2024 XR SACRUM COCCYX 2+ VIEWS INDICATION: Fall TECHNIQUE: XR SACRUM COCCYX 2+ VIEWS COMPARISON: No priors available. IMPRESSION: FINDINGS/IMPRESSION: Negative radiographs of the sacrum. Prominent stool burden in the rectum. Osteopenia. Degenerative changesof the hips and spine. No displaced fractures are visible. -------- FINAL REPORT -------- Dictated By: Javi Lees Dictated Date: 12/26/2024 15:53 ET Assigned Physician: Javi Lees Reviewed and Electronically Signed By: Javi Lees Signed Date: 12/26/2024 15:53 ET Workstation ID: [id number] Transcribed By: Self Edit Transcribed Date: 12/26/2024 15:53 ET us Jesus Romo MD IMG XR PROCEDURES Final Result * HIV 1,2 antibody, p24 antigen with reflex to differentiation (07/06/2024 5:31 AM EDT) HIV Combo AB/AG Negative Negative LAB CHEMISTRY METHOD 07/06/2024 12:25 PM EDT [facility] Blood Venous blood specimen / Unknown Venipuncture / Unknown 07/06/2024 5:31 AM EDT 07/06/2024 6:04 AM EDT Narrative [facility] - 07/06/2024 12:25 PM EDT This assay is a 4th generation assay allowing for earlier detection of HIV infection by detecting the presence of the HIV-1 p24 antigen as well as the traditional antibodies to HIV type 1 (including group O) and type 2. Use of a 4th generation assay is the current CDC recommendation for HIV screening. us Venkatesh BURTON LAB BLOOD ORDERABLES Darlene l Result Performing Organization Address City/State/[facility] Co de Phone Number [facility] [address] [place] [address], [place] [phone] * External Colonoscopy Report (07/04/2024) Anatomical Region Laterality Modality Endoscopy us Provider Onbase GI~PROCEDURE ORDERABLES Final Result * Hepatitis C antibody (04/03/2024 12:39 PM EST) Hepatitis C Antibody Negative Negative LAB CHEMISTRY METHOD 04/03/2024 4:12 PM EST [facility] Blood Venous blood specimen / Unknown Venipuncture / Unknown 04/03/2024 12:39 PM EST 04/03/2024 12:39 PM EST Pito Capellan MD LAB BLOOD ORDERABLES Final Resul t [facility] [address] [place] [address], [place] [phone] * (ABNORMAL) Lipid panel with reflex to direct LDL (04/03/2024 12:39 PM EST) Cholesterol 145 0 - 200 mg/dL LAB CHEMISTRY METHOD 04/03/2024 4:00 PM EST [facility] Triglycerides 130 0 - 150 mg/dL LAB CHEMISTRY METHOD 04/03/2024 4:00 PM EST [facility] HDL 32(L) >=40 mg/dL LAB CHEMISTRY METHOD 04/03/2024 4:00 PM EST [facility] LDL Calculated 87 0 - 100 mg/dL LAB CHEMISTRY METHOD 04/03/2024 4:00 PM [facility] VLDL Cholesterol Jeremy 26 mg/dL LAB CHEMISTRY METHOD 04/03/2024 4:00 PM EST [facility] LAB Non HDL Chol. (LDL+VLDL) 113 <145 mg/dL LAB CHEMISTRY METHOD 04/03/2024 4:00 PM EST [facility] Chol/HDL Ratio 4.5(H) 0.0 - 4.4 LAB CHEMISTRY METHOD 04/03/2024 4:00 PM [facility] Blood Venous blood specimen / Unknown Venipuncture / Unknown 04/03/2024 12:39 PM EST 04/03/2024 12:39 PM EST us Pito Capellan MD LAB BLOOD ORDERABLES Final Resul t [facility] [address] [place] [address], [place] [phone] from Last 3 Months or Most Recently Relevant to Health Maintenance Insurance [facility] [place]ICA[employer] - [place] Advance Directives Documents on File Type Date Recorded Patient Senior Officer Expl anation Advance Directives and Living Will 08/09/2024 11:12 AM [facility] Advance Directives and Living Will 06/28/2024 12:41 PM [facility] * Full Code - Default (Latest Code Status on File) Date Activated Date Inactivated Comments 12/31/2024 12:27 AM 01/07/2025 12:54 PM This is ord er is used when code status has not been discussed with the patient, or code status is otherwise unknown/unconfirmed To update the patient's code status, place a code status order. Do not modify or discontinue any currently active code status orders. * Full Code - Confirmed Date Activated Date Inactivated Comments 08/04/2024 7:18 PM 09/04/2024 4:[address] at[facility] was ascertained in the following way: Code status discussion: discussion with healthcare national account representative To update the patient's code status, place a code status order. Do not modify or discontinue any currently active code status orders. * Full Code - Default Date Activated Date Inactivated Comments 08/04/2024 4:31 PM 08/04/2024 7:18 PM This is orde r is used when code status has not been discussed with the patient, or code status is otherwise unknown/unconfirmed To update the patient's code status, place a code status order. Do not modify or discontinue any currently active code status orders. * Full Code - Default Date Activated Date Inactivated Comments 07/05/2024 10:14 PM 07/07/2024 8:49 PM This is ord er is used when code status has not been discussed with the patient, or code status is otherwise unknown/unconfirmed To update the patient's code status, place a code status order. Do not modify or discontinue any currently active code status orders. * Full Code - Default Date Activated Date Inactivated Comments 06/27/2024 7:12 PM 07/01/2024 7:30 PM This is order is used when code status has not been discussed with the patient, or code status is otherwise unknown/unconfirmed To update the patient's code status, place a code status order. Do not modify or discontinue any currently active code status orders. Healthcare Agents on File Name Relationship Healthcare Agent Relationship Communication Talia Anel Spouse Health Care Agent Care Teams Electric Locomotive Crane Operator Relationship Specialty Start Date End Date Pito Capellan MD [address] [place] [id number] PCP - General 08/12/22
--- OUTSIDE RECORDS SUMMARY | 2025-02-03 11:10 | XMS_ITS | Encounter Summary ---
Author Organization [facility] Address [address] [place] [address] Care Team Providers Care Doper Operator Name Role Phone Pito Capellan MD Primary Care Provider [phone] Encounter Details Date Type Department Care Team (Latest Contact Info) Description 07/31/2024 Lab Requisition [facility] - Main Lab [address] [facility] [place] [address] Ron Bond MD [address] [place] [id number] Urinary tract infection, site not specified; Metabolic encephalopathy Social History Tobacco Use Types Packs/Day Years [...] before we got money to buy more. Never true 06/28/2024 Within the past 12 months th e food we bought just didn't last and we didn't have money to get more. Never true 06/28/2024 Education Answer Date Recorded Do you think [...] Date Record ed Physical Abuse Unrecognized value 07/06/2024 Verbal Abuse Unrecognized value 07/06/2024 Sex and Gender Information Value Date Recorded Sex Assigned at Male 01/31/2024 12:03 AM EDT Legal Sex Male 8:40 PM EST Gender Identity Male 01/31/2024 12:03 AM EDT Sexual Orientation Straight 01/31/2024 12 :03 AM EDT documented as of this encounter Plan of Treatment Not on file documented as of this encounter Procedures Procedure Name Priority Date/Time Associated Diagnosis Comments COMPLETE BLOOD COUNT Routine 07/31/2024 7:05 AM EDT Urinary tract infection, site not specified Metabolic encephalopathy AMMONIA Routine 07/31/2024 7:05 AM EDT Urinary tract infection, site not specified Metabolic encephalopathy BASIC METABOLIC PANEL Routine 07/31/2024 7:05 AM EDT Urinary tract infection, site not specified Metabolic encephalopathy documented in this encounter Results * Ammonia (07/31/2024 7:05 AM EDT) Ammonia 18 11 - 35 mcmol/L LAB CHEMISTRY METHOD 07/31/2024 8:19 AM EDT [facility] Blood Venous blood specimen / Unknown Venipuncture / Unknown 07/31/2024 7:05 AM EDT 07/31/2024 7:55 AM EDT us Ron Bond MD LAB BLOOD ORDERABLES Final Resu lt [facility] [address] [place] [address], [place] [phone] * (ABNORMAL) Basic metabolic panel (07/31/2024 7:05 AM EDT) Pathologist [facility] Sodium 143 133 - 145 mmol/L LAB CHEMISTRY METHOD 07/31/2024 8:[address] [facility] Potassium 3.0(L) 3.5 - 5.5 mmol/L LAB CHEMISTRY METHOD 07/31/2024 8:42 AM EDT [facility] Chloride 111(H) 96 - 110 mmol/L LAB CHEMISTRY METHOD 07/31/2024 8:42 AM T [facility] CO2 29 21 - 32 mmol/L LAB CHEMISTRY METHOD 07/31/2024 8:[address] [facility] Anion Gap 3 3 - 11 LAB CHEMISTRY METHOD 07/31/2024 8:42 AM T [facility] Glucose 77 70 - 100 mg/dL LAB CHEMISTRY METHOD 07/31/2024 8:42 AM EDT [facility] BUN 9 5 - 25 mg/dL LAB CHEMISTRY METHOD 07/31/2024 8:[address] [facility] Creatinine 0.73 0.70 - 1.30 mg/dL LAB CHEMISTRY METHOD 07/31/2024 8:42 AM EDT [facility] eGFR 105 >=60 mL/min/1. 73m2 LAB CHEMISTRY METHOD 07/31/2024 8:42 AM EDT [facility] Comment:Calculation based on the Chronic Kidney Disease Epidemiology Collaboration (CKD-EPI) equation refit without adjustment for race. BUN/Creatinine Ratio 12.3 LAB CHEMISTRY METHOD 07/31/2024 8:[address] [facility] Calcium 9.0 8.5 - 10.5 mg/dL LAB CHEMISTRY METHOD 07/31/2024 8:[address] [facility] Blood Venous blood specimen / Unknown Venipuncture / Unknown 07/31/2024 7:05 AM EDT 07/31/2024 7:55 AM EDT us Ron Bond MD LAB BLOOD ORDERABLES Final Resu lt [facility] [address] [place] [address], * (ABNORMAL) Complete blood count (07/31/2024 7:05 AM EDT) WBC 6.2 4.8 - 10.8 K/mcL LAB HEMETOLOGY METHOD 07/31/2024 8:08 AM EDT [facility] RBC 2.90(L) 4.50 - 5.50 M/mcL LAB HEMETOLOGY METHOD 07/31/2024 8:[address] [facility] Hemoglobin 8.3(L) 13.5 - 17.5 g/dL LAB HEMETOLOGY METHOD 07/31/2024 8:08 AM EDT [facility] Hematocrit 26.2(L) 42.0 - 54.0 % LAB HEMETOLOGY METHOD 07/31/2024 8:[address] [facility] MCV 91.3 79.0 - 98.0 FL LAB HEMETOLOGY METHOD 07/31/2024 8:08 AM EDT [facility] MCH 28.9 27.0 - 32.0 pcg LAB HEMETOLOGY METHOD 07/31/2024 8:08 AM EDT [facility] MCHC 31.7(L) 32.0 - 37.0 g/dL LAB HEMETOLOGY METHOD 07/31/2024 8:[address] [facility] RDW 19.3(H) 11.0 - 15.0 % LAB HEMETOLOGY METHOD 07/31/2024 8:[address] [facility] Platelets 271 130 - 400 K/mcL LAB HEMETOLOGY METHOD 07/31/2024 8:[address] [facility] MPV 10.5 7.0 - 11.0 FL LAB HEMETOLOGY METHOD 07/31/2024 8:[address] [facility] NRBC 0.0 <1.0 % LAB HEMETOLOGY METHOD 07/31/2024 8:[address] [facility] NRBC Absolute 0.00 <0.10 K/mcL LAB HEMETOLOGY METHOD 07/31/2024 8:[address] [facility] Blood Venous blood specimen / Unknown Venipuncture / Unknown 07/31/2024 7:05 AM EDT 07/31/2024 7:55 AM EDT us Ron Bond MD LAB BLOOD ORDERABLES Final Resu lt [facility] [address] [place] [address], documented in this encounter Visit Diagnoses Diagnosis Urinary tract infection, site not specified Metabolic encephalopathy documented in this encounter Additional Health Concerns Infection Onset Date Last Indicated Resolved Time Respiratory Rule-Out 08/04/2024 08/04/2024 025 2:40 PM EDT COVID-19 Rule-Out 08/04/2024 08/04/2024 08/04/2024 2:40 PM EDT Bacterial Meningitis Rule-Out 08/13/2024 08/14/2024 08/19/2024 8:38 AM EDT MRSA Comment:Facility does not isolate for MRSA or VRE. 12/30/2024 12/30/2024 01/03/2025 2:57 PM E DT VRE Comment:Facility does not isolate for MRSA or VRE. 12/30/2024 12/30/2024 01/03/2025 2:57 PM E DT Assessment Noted Time PHQ-9 Depression Total Score: 8 07/09/19 25 2:02 PM EDT documented as of this encounter Care Teams Doper Operator Relationship Specialty Start Date End Date Pito Capellan MD [address] [place] [phone] PCP - General 08/12/22 documented as of this encounter
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
[2025-02-03 11:11] LABS: MANUAL DIFF FLAG NO
[2025-02-03 11:14] LABS: Glucose, Whole Blood 74 mg/dL (60-115)
[2025-02-03 11:16] LABS: Hematocrit 40.2 % (42.0-52.0); Hemoglobin 12.7 g/dl (14.0-18.0); Imm Gran Abs Auto 0.04 X10*3/uL (0.00-0.03); Imm Gran Pct Auto 0.4 % (0.0-0.4); Lymphocytes Absolute Auto 1.8 X10*3/uL (1.2-4.9); Mean Corpuscular HGB Conc 31.6 g/dl (31.0-36.0); Mean Corpuscular Hemoglobin 27.3 pg (27.0-33.0); Mean Corpuscular Volume 86.5 fL (80.0-98.0); NRBC Abs Auto 0.000 X10*3/uL (0.0-0.012); NRBC Pct Auto 0.0 /100WBC (0.0-0.2); Platelet Count 170 X10*3/uL (160-400); Red Blood Count 4.65 X10*6/uL (4.60-5.80); White Blood Count 9.1 X10*3/uL (4.8-10.8)
[2025-02-03 11:18] VITALS: BP 125/77; PULSE 63; RESP 18; TEMP 36.8; O2SAT 98
--- NOTE | 2025-02-03 11:19 | MHC.EDTECH ---
This pct was attempting to do a ptinr test on this patient but the provided stated its not needed,
[2025-02-03 11:20] LABS: INTERNATIONAL NORM RATIO 1.2 (0.9-1.1); Prothrombin Time 14.1 SEC (10.9-12.4)
[2025-02-03 11:22] LABS: Partial Thromboplastin Time 28.7 SEC (26.7-34.1)
[2025-02-03 11:29] LABS: Stroke Lab Use COMPLETE
[2025-02-03 11:32] LABS: Anion Gap 11 (12-20); Blood Urea Nitrogen 20 mg/dL (9-16); Calcium 9.6 mg/dL (8.4-10.2); Carbon Dioxide 27 mmol/L (22-29); Chloride 108 mmol/L (96-108); Cholesterol 164 mg/dL (<200); Creatinine Clr Calc Pharmacy 73.0; Estimated Glomerular Filt Rate > 60; HDL Cholesterol 39 mg/dL (>40); Potassium 4.5 mmol/L (3.3-5.1); Sodium 141 mmol/L (135-145); Triglycerides 158 mg/dL (<150); Troponin-I High Sensitivity < 2.7 ng/L (<3.5-35.0)
[2025-02-03 11:54] VITALS: BP 122/80; PULSE 67; RESP 18; O2SAT 94
[2025-02-03 12:07] LABS: Glucose, Whole Blood 116 mg/dL (60-115)
[2025-02-03 15:06] LABS: Troponin-I High Sensitivity 3.4 ng/L (<3.5-35.0)
--- NOTE | 2025-02-03 16:24 | PC.NURSE ---
Report given to Josr MOORE at [facility]
[2025-02-03 16:56] VITALS: BP 122/80; PULSE 67; RESP 18; TEMP 36.6; O2SAT 94
== END 2025-02-03 16:57 | disposition skilled nursing facility (03) ==
PROVIDERS: Emergency Provider Emergency Medicine; PCP Family Medicine Geriatric Medicine
DX: R07.89 Other chest pain (principal); R51.9 Headache, unspecified; I10 Essential (primary) hypertension; F03.90 Unspecified dementia, unspecified severity, without behavioral disturbance, psychotic disturbance, mood disturbance, and anxiety; Z86.73 Personal history of transient ischemic attack (TIA), and cerebral infarction without residual deficits; Z79.01 Long term (current) use of anticoagulants
CPT/HCPCS: 36415; 70450; 71045; 80048; 80061; 80307; 82947; 84484; 85025; 85610; 85730; 93005; 99284

== ENCOUNTER → 2025-02-03 10:30 | Outpatient (BNV) | payer MEDICAID, SELFPAY | PROVIDERS: Emergency Provider Emergency Medicine; PCP Family Medicine Geriatric Medicine; Visit Provider Internal Medicine Cardiovascular Disease | DX: I63.9 Cerebral infarction, unspecified (principal) | CPT/HCPCS: 93010 ==

== ENCOUNTER → 2025-02-03 10:30 | Outpatient (BNV) | payer OTHER, SELFPAY | PROVIDERS: Emergency Provider Emergency Medicine; Visit Provider Radiology Diagnostic Radiology | DX: I67.82 Cerebral ischemia (principal); R90.89 Other abnormal findings on diagnostic imaging of central nervous system; R07.9 Chest pain, unspecified | CPT/HCPCS: 70450; 71045 ==

== ENCOUNTER 2025-02-10 15:32 | Inpatient (IN) | payer MEDICAID, SELFPAY ==
--- OUTSIDE RECORDS SUMMARY | 2020-07-02 04:55 | XMS_ITS | Continuity of Care Document ---
Author Organization [facility] Address [address] [address] Phone Care Team Providers Care Stacker Operator Name Role Phone Carroll Rojas MD Unavailable Unavailable Advance Directives Directive Yes / No Effective Date File Name No Information Encounters Encounter Description Practice Location Reason(s) For Visit Diagnoses Date Provider [facility], [address], [id number], [place] tel:[phone] [facility] No Information 2020 Bob Hodges. [address] [place] [address], [id number], [place]. tel:[phone] Family History Family Member Type Diagnosis Age At Onset No Information Payers Payer name Insurance type Covered libertarian ID Authoriza tion(s) No Information Social History Type Description Quantity Date Captured Comments Sex Male Smoking Status No Information Chief Complaint And Reason For Visit No Information History Of Present Illness Encounter Date Complaint History Of Prese nt Illness No Information Instructions Date Instruction Additional Infor mation No Information Assessments Type Assessment Date No Information
--- NOTE | ~2025-02-10 | CT_ITS ---
CLINICAL HISTORY: ams on thinner, agitated CT head without contrast Comparison: CT/SR - HEAD STROKE_BRAIN (ADULT) - 02/03/25 10:31 EDT Findings: Scattered subcortical and periventricular hypoattenuation, likely in keeping with chronic small vessel ischemic disease. Parenchymal volume loss with compensatory prominence of the ventricles and CSF spaces. No acute territorial infarction, intracranial hemorrhage, midline shift or hydrocephalus. Prominence of the pituitary fossa, similar to prior, nonspecific. Redemonstrated left mastoid and middle ear effusions, nonspecific. Small osteoma left frontal sinus. Lobulated mucosal thickening right maxillary sinus. The orbits are unremarkable. No skull fracture. IMPRESSION: 1. No acute intracranial abnormality. 2. Additional findings as described. This document has been electronically signed by: Oren Joe MD on 02/10/2025 18:29:43
[2025-02-10 16:04] VITALS: BP 113/73; PULSE 110; PULSE 79; RESP 18; TEMP 36.6; O2SAT 100; O2SAT 98; BMI 32.9
--- NOTE | 2025-02-10 16:23 | ED.AMS ---
HPI - Altered Mental Status General Chief Complaint: Altered Mental Status Stated Complaint: psych,aggressive,violent to staff @[facility] Time Seen by Provider: 02/10/25 16:13 History of Present Illness HPI narrative: Patient is a 59-year-old male currently lives in [facility]. Currently has a history of CVA. Currently patient is on Eliquis. Question DVT in the past. On psych meds. Medication listed include Lexapro, gabapentin, mirtazapine. Question the patient has been taking medications. Today patient got extremely agitated. Was sent in for further evaluation. Currently not on blood thinners. Patient on arrival has no complaints. Oriented to self. Not to place or time. Patient unable to give details. No trauma reported by [facility]dc Related Data Home Medications ?Medication ?Instructions ?Recorded ?Confirmed finasteride 5 mg tablet 5 mg PO DAILY 05/18/23 02/11/25 apixaban 5 mg tablet (Eliquis) 5 mg PO BID 02/11/25 02/11/25 ascorbic acid (vitamin C) 500 mg 500 mg PO DAILY 02/11/25 02/11/25 chewable tablet (Vitamin C) bisacodyl 10 mg rectal suppository 10 mg MD DAILY PRN Constipation 02/11/25 02/11/25 cholecalciferol (vitamin D3) 25 50 mcg PO DAILY 02/11/25 02/11/25 mcg (1,000 unit) tablet (Vitamin D3) escitalopram oxalate 10 mg tablet 10 mg PO DAILY 02/11/25 02/11/25 (Lexapro) ferrous sulfate 325 mg (65 mg 325 mg PO DAILY 02/11/25 02/11/25 iron) tablet gabapentin 100 mg capsule 100 mg PO BID 02/11/25 02/11/25 lorazepam 0.5 mg tablet (Ativan) 0.5 mg PO TID PRN Anxiety 02/11/25 02/11/25 magnesium hydroxide 400 mg/5 mL 30 ml PO DAILY PRN Constipation 02/11/25 02/11/25 oral suspension (Milk of Magnesia) metoprolol succinate 50 mg 50 mg PO DAILY 02/11/25 02/11/25 tablet,extended release 24 hr mirtazapine 15 mg tablet 15 mg PO BEDTIME 02/11/25 02/11/25 omeprazole 40 mg capsule,delayed 40 mg PO DAILY@199902/11/25 02/11/25 release pravastatin 40 mg tablet 40 mg PO DAILY 02/11/25 02/11/25 sennosides 8.6 mg tablet (senna) 8.6 mg PO BID Constipation 02/11/25 02/11/25 sodium phosphates 19 gram-7 118 ml MD DAILY PRN Constipation 02/11/25 02/11/25 gram/118 mL enema (Fleet Enema) Previous Rx's ?Medication ?Instructions ?Recorded acetaminophen 325 mg tablet 650 mg (2 x 325 mg) PO Q6H PRN 05/23/23 Pain, Mild (Pain Scale 1-3) 30 days #42 tabs Allergies Allergy/AdvReac Type Severity Reaction Status Date / Time No Known Allergies Allergy Verified 02/10/25 16:25 Review of Systems Review of Systems: Patient unable to give detailed review of system has no specific complaints Yes all other systems are reviewed and are negative PMF Past Medical History Medical History History of infection of skin or subcutaneous tissue BPH (benign prostatic hyperplasia) Arthritis Hx of transfusion of packed red blood cells Anemia Sleep apnea Elevated cholesterol HTN (hypertension) Surgical History H/O colonoscopy History of ankle surgery Social History Social History Household Members: Spouse Housing: House Are you a primary assurance services manager health care to a significant other at home: No Do you presently have visiting nurse or other home services: No Patient Tobacco Use Status: Former Tobacco user Tobacco use type: Cigarette Smoked in Last 30 Days: No Use of substances other than those prescribed or required for medical reasons: No Substance Use Type: Marijuana Advance Directives: Yes Advance Directives on File: Yes Advance Directives Date on File: 02/03/25 service: No 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al status: disabled 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 Oriented X1. No acute distress. Eyes: Pupils equal, round and reactive to light. ENT: Pharynx normal. Neck: Normal inspection. Neck supple. No lymph nodes noted. No crepitus CVS: Normal heart rate and rhythm. Pulses normal. Normal S1 and S2 Respiratory: No respiratory distress. Breath sounds normal. No Wheezing. No rales Abdomen: Soft and nontender. No rigidity. No distention. good BS x4 Skin: Skin warm and dry. Normal skin color. Normal skin turgor. Extremities: No lower extremity edema. Neurovascular intact to all extremities. No Lacerations. No Rash Neuro: Oriented X 1. No motor deficit. No sensory deficit. Moving all extermities. No slurred speech. Cranial nerves grossly intact Vital Signs: Vital Signs - 24 hr 02/13/25 19:05 02/13/25 20:58 02/13/25 22:00 Temperature 97.8 F 98.3 F Pulse Rate 109 H 95 89 Respiratory Rate 18 16 16 Blood Pressure 129/80 133/85 109/71 Pulse Oximetry 97 98 96 Oxygen Delivery Method Room Air Room Air Room Air 02/14/25 08:34 02/14/25 08:34 02/14/25 10:55 Temperature 98.1 F Pulse Rate 98 98 77 Respiratory Rate 18 16 Blood Pressure 123/84 123/84 108/70 Pulse Oximetry 98 98 Oxygen Delivery Method Room Air Room Air BMI result Body Mass Index 32.9 Course Reevaluation(s) Reevaluation #1: Physician observation started at 1903 on 02/10. Patient placed in physician observation because patient is awaiting CARE team evaluation and psychiatry evaluation for the possible need of inpatient psych admission. At the time observation was started patient's vital signs were stable. He is calm this morning. Med rec is pending, he reportedly has been off of his medications. His UTox was negative. ETOH level 11. Patient is alert and oriented. Neuro exam is non-focal. CV: RRR and lungs are clear. Will continue to monitor. Reevaluation #2: Time: 07:44 Date: 02/12/25 Provider: Henrietta Lopez, DO Patient in physician observation for psychiatric evaluation.? No acute events reported overnight. No current complaints. VS stable.? Patient is pending disposition by CARE team. Will continue to monitor. Time: 06:05 Date: 02/13/25 Provider: Henrietta Lopez, DO Patient in physician observation for psychiatric evaluation.? No acute events reported overnight. No current complaints. VS stable.? Pending CARE team evaluation. Will continue to monitor. Time: 06:05 Date: 02/14/25 Provider: Henrietta Lopez, DO Patient in physician observation for psychiatric evaluation.? No acute events reported overnight. No current complaints. VS stable.? Pending CARE team evaluation. Will continue to monitor. physician observation ended, he is to be admitted inpatient. ended at 333pm Henrietta Lopez DO 02/14/25 6291 Medications Administered Generic Name Dose Route Start Last Admin Trade Name Radha PRN Reason Stop Dose Admin Apixaban 5 mg 02/11/25 11:00 02/14/25 08:37 Apixaban 5 Mg Tablet PO 5 mg BID GO Administration Ascorbic Acid 500 mg 02/11/25 11:00 02/14/25 08:38 Ascorbic Acid 500 Mg Tablet PO 500 mg DAILY GO Administration Escitalopram Oxalate 10 mg 02/11/25 11:15 02/14/25 08:37 Escitalopram Oxalate 10 Mg Tablet PO 10 mg DAILY GO Administration Ferrous Sulfate 324 mg 02/11/25 11:30 02/14/25 08:38 Ferrous Sulfate 324 Mg Tablet. PO 324 mg DAILY GO Administration Finasteride 5 mg 02/11/25 11:15 02/14/25 11:03 Finasteride 5 Mg Tablet PO 5 mg DAILY GO Administration Gabapentin 100 mg 02/11/25 11:15 02/14/25 08:36 Gabapentin 100 Mg Capsule PO 100 mg BID GO Administration Lorazepam 0.5 mg 02/11/25 11:00 02/13/25 13:42 Lorazepam 0.5 Mg Tablet PO 0.5 mg TID PRN Administration Anxiety Metoprolol Succinate 50 mg 02/11/25 11:15 02/14/25 08:34 Metoprolol Succinate Er 50 Mg Tab.Er.24h PO 50 mg DAILY GO Administration Protocol Mirtazapine 15 mg 02/11/25 21:00 02/13/25 20:56 Mirtazapine 15 Mg Tablet PO 15 mg BEDTIME GO Administration Omeprazole 40 mg 02/11/25 11:15 02/14/25 08:35 Omeprazole 40 Mg Capsule. PO 40 mg DAILY@0630 GO Administration Pravastatin Sodium 40 mg 02/11/25 11:15 02/14/25 08:35 Pravastatin Sodium 40 Mg Tablet PO 40 mg DAILY GO Administration Vitamin D 50 mcg 02/11/25 11:00 02/14/25 08:36 Cholecalciferol (Vitamin D3) 25 Mcg Tablet PO 50 mcg DAILY GO Administration Discontinued Medications Generic Name Dose Route Start Last Admin Trade Name Frenereyda PRN Reason Stop Dose Admin Acetaminophen 975 mg 10/21/25 11:14 02/11/25 11:20 Acetaminophen 325 Mg Tablet PO 02/11/25 11:15 975 mg ONCE ONE Administration Medical Decision Making Medical Decision Making MDM Narrative: Will contact [facility] about the medication he is actually on. Care team was consulted labs were ordered. Tox screen. Patient in no acute distress. Will monitor. Lab Data 02/10/25 17:30 02/10/25 17:30 Labs: Lab Results 02/10/25 02/11/25 Range/Units 17:30 01:33 WBC 8.8 (4.8-10.8) X10*3/uL RBC 4.43 L (4.60-5.80) X10*6/uL Hgb 12.2 L (14.0-18.0) g/dl Hct 37.7 L (42.0-52.0) % MCV 85.1 (80.0-98.0) fL MCH 27.5 (27.0-33.0) pg MCHC 32.4 (31.0-36.0) g/dl RDW 14.8 (11.0-16.0) % Plt Count 167 (160-400) X10*3/uL MPV 11.7 (9.4-12.4) fL Immature Gran % (Auto) 0.3 (0.0-0.4) % Neut % (Auto) 64.1 (45-73) % Lymph % (Auto) 25.2 (20-40) % Stevens % (Auto) 7.9 (2-11) % Eos % (Auto) 2.2 (0-4) % Baso % (Auto) 0.3 (0-2) % Lymph # (Auto) 2.2 (1.2-4.9) X10*3/uL Stevens # (Auto) 0.7 (0.1-1.2) X10*3/uL Eos # (Auto) 0.2 (0.0-0.4) X10*3/uL Baso # (Auto) 0.0 (0.0-0.2) X10*3/uL Abs Immat Gran (auto) 0.03 (0.00-0.03) X10*3/uL Absolute Neuts (auto) 5.6 (2.0-8.3) x10*3/uL Absolute Nucleated RBC 0.000 (0.0-0.012) X10*3/uL Nucleated RBC % (auto) 0.0 (0.0-0.2) /100WBC Sodium 140 (135-145) mmol/L Potassium 4.3 (3.3-5.1) mmol/L Chloride 106 (96-108) mmol/L Carbon Dioxide 25 (22-29) mmol/L Anion Gap 13 (12-20) BUN 24 H (9-16) mg/dL Creatinine 1.13 (0.5-1.4) mg/dL Estim Creat Clear Calc 77.4 Estimated GFR > 60 Random Glucose 109 (60-115) mg/dL Calcium 9.7 (8.4-10.2) mg/dL Total Bilirubin 0.2 (0.0-1.0) mg/dL Direct Bilirubin < 0.2 (0.0-0.5) mg/dL AST 12 (5-37) U/L ALT 17 (0-40) U/L Alkaline Phosphatase 82 (39-117) U/L Total Protein 7.8 (6.5-8.0) g/dL Albumin 3.9 (3.5-5.0) g/dL TSH 0.46 (0.32-4.0) uIU/mL Urine Color Yellow Urine Appearance Clear Urine pH 6.0 (5.0-9.0) Ur Specific [place] 1.020 (1.005-1.025) Urine Protein Negative (Neg-Trace) mg/dL Urine Glucose (UA) Negative (Negative) mg/dL Urine Ketones Negative (Negative) mg/dL Urine Blood Negative (Negative) Urine Nitrite Negative (Negative) Ur Leukocyte Esterase Trace H (Negative) Urine RBC 0-2 (0-2) /HPF Urine WBC 0-5 (0-5) /HPF Ur Squamous Epith Cells 0-2 (0-2) /HPF Urine Bacteria None Seen (None Seen) Hyaline Casts 0-2 (0-2) /LPF Urine Opiates Screen Not Detected (Not Detect) Ur Buprenorphine Scrn Not Detected (Not Detect) ng/mL Ur Oxycodone Screen Not Detected (Not Detect) ng/mL Urine Methadone Screen Not Detected (Not Detect) ng/mL Urine Fentanyl Screen Not Detected (Not Detect) Ur Barbiturates Screen Not Detected (Not Detect) Ur Phencyclidine Scrn Not Detected (Not Detect) Ur Amphetamines Screen Not Detected (Not Detect) U Benzodiazepines Scrn Not Detected (Not Detect) Urine Cocaine Screen Not Detected (Not Detect) U Marijuana (THC) Screen Not Detected (Not Detect) Ethyl Alcohol 11 mg/dL Discharge Plan Discharge Clinical Impression: Major neurocognitive disorder due to another medical condition, with agitation Patient Disposition: Admitted As Inpatient Interventions: Admission Worksheet (ED) Last Done: 02/14/25 15:10
[2025-02-10 17:36] LABS: MANUAL DIFF FLAG NO
[2025-02-10 17:38] LABS: Hematocrit 37.7 % (42.0-52.0); Hemoglobin 12.2 g/dl (14.0-18.0); Imm Gran Abs Auto 0.03 X10*3/uL (0.00-0.03); Imm Gran Pct Auto 0.3 % (0.0-0.4); Lymphocytes Absolute Auto 2.2 X10*3/uL (1.2-4.9); Mean Corpuscular HGB Conc 32.4 g/dl (31.0-36.0); Mean Corpuscular Hemoglobin 27.5 pg (27.0-33.0); Mean Corpuscular Volume 85.1 fL (80.0-98.0); NRBC Abs Auto 0.000 X10*3/uL (0.0-0.012); NRBC Pct Auto 0.0 /100WBC (0.0-0.2); Platelet Count 167 X10*3/uL (160-400); Red Blood Count 4.43 X10*6/uL (4.60-5.80); White Blood Count 8.8 X10*3/uL (4.8-10.8)
[2025-02-10 18:00] LABS: Alanine Aminotransferase 17 U/L (0-40); Albumin Level 3.9 g/dL (3.5-5.0); Alkaline Phosphatase 82 U/L (39-117); Anion Gap 13 (12-20); Aspartate Amino Transferase 12 U/L (5-37); Blood Urea Nitrogen 24 mg/dL (9-16); Calcium 9.7 mg/dL (8.4-10.2); Carbon Dioxide 25 mmol/L (22-29); Chloride 106 mmol/L (96-108); Creatinine Clr Calc Pharmacy 77.4; Estimated Glomerular Filt Rate > 60; Potassium 4.3 mmol/L (3.3-5.1); Sodium 140 mmol/L (135-145); Total Protein 7.8 g/dL (6.5-8.0)
--- NOTE | 2025-02-10 18:19 | PC.NURSE ---
belongings placed in [facility]. care team in meeting with patient, patient observer remains at bedside
[2025-02-10 19:42] VITALS: BP 109/70; PULSE 64; RESP 16; O2SAT 98
--- OUTSIDE RECORDS SUMMARY | 2025-02-10 20:42 | XMS_ITS ---
Author Name [facility] Organization Unknown Care Team Organization Name Specialty Phone Email Start Date End Da te [facility] Lili [facility] 08/29/2022 12/11/2023 [facility] Ena Alston [facility] 03/01/2022 4
[2025-02-11] VITALS (7 sets, daily range): BP systolic 102–116; BP diastolic 58–79; PULSE 61–79; RESP 14–18; TEMP 36.7–36.8; O2SAT 96–99
[2025-02-11 01:40] LABS: Appearance Urine Clear; Glucose Urine UA Negative (Negative); PH 6.0 (5.0-9.0); Specific Gravity - Urine 1.020 (1.005-1.025); UMIC TRIGGER UACC YES
--- NOTE | 2025-02-11 01:42 | PC.NURSE ---
pt voided 1520cc bladder scanned.
[2025-02-11 01:50] LABS: Cannabinoid Screen Urine Not Detected (Not Detect)
--- NOTE | 2025-02-11 03:42 | PC.NURSE ---
pt is sleeping at this time, no sign of distress.
--- NOTE | 2025-02-11 04:40 | PC.NURSE ---
pt incitement of urine, pt complete changed over and bed change. pt resting in bed at this time.
--- NOTE | 2025-02-11 09:28 | PHA.MEDREC ---
Addendum entered by Andrzej Eden RPh 02/11/25 11:07: MED REC REVIEWED BY [facility] Original Note: Pharmacy Consult ? Medication Reconciliation Pharmacy has completed the medication reconciliation. Utilized list [facility] to confirm med list.
[2025-02-11] MEDS: Metoprolol Succinate ER 50 MG TAB.ER.24H PO (11:21)
[2025-02-11] MEDS: Ferrous Sulfate 324 MG TABLET.DR PO (11:30)
--- NOTE | 2025-02-11 13:13 | PM.PSYCN ---
History of Present Illness Date of Service: 02/11/25 Chief Complaint: psych,aggressive,violent to staff @snf Reason for Consult: Agitation- considering IPLOC vs return to SNF Requesting physician: Codie De La Cruz Petty Sources of Information: patient interviewed, chart reviewed and crisis/core team assessment reviewed Additional Sources of Information: Pt's , Talia HPI Narrative: Mr. 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 On arrival to the ED, he was confused, believed Keon Elizalde is the president. Stated he didn't know why he was agitated and denied SI or violent ideation. Per collateral gathered by CARE Team from the SNF, pt has not been the same since one week ago after having a panic attack, associated with BP elevation, crying and not responding. He was sent to the ED and reportedly medically cleared. Per CARE assessment note by Sena Restrepo LM- - pt became more agitated and was not redirectable, yelling, yelling, screaming and crying and became combative when given lorazepam at the SNF yesterday -He has reportedly had significant short-term memory impairment x [address] head w/o contrast yesterday showed scattered subcortical and periventricular hypoattenuation, likely c/w chronic small vessel disease; parenchymal volume loss with prominence of ventricles and CSF space. There were no acute changes. UA was unremarkable today. U tox neg Pt's (Talia) was at bedside and provided some of his history. She reports that pt has been unable to walk since his L leg was paralyzed in Apr 2023. She denies that pt had a stroke. It sounds like the mobility issues started after a fall in Apr 2023. He's been in and out of the hospital and rehab facilities since then. He reportedly had delusional episodes and outbursts during a 3 month stay at a rehab facility in [place]. He was seen by a psychiatrist at the rehab, who started him on prn lorazepam 0.5 mg tid, which may have helped somewhat with his agitation but he kept having delusions . When asked to describe the delusions, she states that pt would ask Why do I have to be here? (in the rehab/SNF) and You don't want me around anymore . 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 She is not able to manage him safely at home since he can't walk. Per Talia, pt has had some issues w/ confusion and disorientation since Apr 2023 but she feels like his memory has been significantly worse more recently. He asks about his mom, who 5 yrs ago, doesn't know where he lives. Talia notes that pt has been seeing both of their relatives since Apr 2023, which is not particularly bothersome to him. She reports that he gave perfect physical descriptions of them without ever having met them. He has had episodes of confusion/agitation at night, worrying that people were going to harm him and has yelled during the episodes. Pt confirms that he had been seeing/communicating w/ relatives since Apr 2023. He reports that he is and his aunt were spiritual in this way and I have the same ability . He reports that he has always known that they are spirits and not really there in person and that it is a comforting way to connect w/ his family. He notes that Talia get scared of the ghosts . Pt denies feeling depressed. He endorses worries about his living alone. He recalls feeling cool, calm and collected and suddenly worrying that people were going to harm him but states that the worries then faded away. He doesn't know why the episodes have occurred. He states that the year is 1983.... I know it's , month is September or April . He is oriented to self and being at a hospital in [place]. Pt denies any h/o passive or active SI or thoughts of non-suicidal self-harm He denies h/o aggression or violent ideation He denies h/o AH/VH, states that the above experiences are part of his culture Per staff that has been monitoring pt today in the ED- Pt didn't remember having lunch after eating it and asked for it again. He has reportedly been talking to himself for much of the day and intermittently crying. Past Psychiatric History: Pt denies having any outpatient psychiatric provider or h/o IPLOC, PHP or respite Current tx: John ( [facility]) [phone] Psychotropic meds listed on his [facility] record include escitalopram 10 mg qd, gabapentin 100 mg bid (rx'd for neuropathic pain), lorazepam .5 mg tid, and mirtazapine 15 mg qhs. Neither pt nor his know who rx'd the escitalopram or mirtazapine or whether he's been taking it lately. Medical Evaluation Reviewed: Yes [facility] Medical History History of infection of skin or subcutaneous tissue BPH (benign prostatic hyperplasia) Arthritis Hx of transfusion of packed red blood cells Anemia Sleep apnea Elevated cholesterol HTN (hypertension) Surgical History H/O colonoscopy History of ankle surgery Family History: Unknown Social History: B/R in [place] by mom. Currently residing at [facility] Substance History: Pt denies Trauma History: Pt denies Diagnostics Vital Signs (24Hr): Vital Signs - 24 hr 02/10/25 16:04 02/10/25 19:42 02/11/25 00:24 Temperature 97.8 F 98.1 F Pulse Rate 79 64 61 Respiratory Rate 18 16 14 Blood Pressure 113/73 109/70 113/70 Pulse Oximetry 98 98 98 Oxygen Delivery Method Room Air Room Air Room Air 02/11/25 06:15 02/11/25 11:21 02/11/25 12:46 Temperature 98.2 F 98.0 F Pulse Rate 63 63 65 Respiratory Rate 18 18 Blood Pressure 116/61 116/61 102/59 L Pulse Oximetry 97 96 Oxygen Delivery Method Room Air Room Air BMI result Body Mass Index 32.9 Labs 02/10/25 17:30 02/10/25 17:30 Labs: Laboratory Results - last 48 hr 02/10/25 02/11/25 17:30 01:33 WBC 8.8 RBC 4.43 L Hgb 12.2 L Hct 37.7 L MCV 85.1 MCH 27.5 MCHC 32.4 RDW 14.8 Plt Count 167 MPV 11.7 Immature Gran % (Auto) 0.3 Neut % (Auto) 64.1 Lymph % (Auto) 25.2 Burnet % (Auto) 7.9 Eos % (Auto) 2.2 Baso % (Auto) 0.3 Lymph # (Auto) 2.2 Burnet # (Auto) 0.7 Eos # (Auto) 0.2 Baso # (Auto) 0.0 Abs Immat Gran (auto) 0.03 Absolute Neuts (auto) 5.6 Absolute Nucleated RBC 0.000 Nucleated RBC % (auto) 0.0 Sodium 140 Potassium 4.3 Chloride 106 Carbon Dioxide 25 Anion Gap 13 BUN 24 H Creatinine 1.13 Estim Creat Clear Calc 77.4 Estimated GFR > 60 Random Glucose 109 Calcium 9.7 Total Bilirubin 0.2 Direct Bilirubin < 0.2 AST 12 ALT 17 Alkaline Phosphatase 82 Total Protein 7.8 Albumin 3.9 TSH 0.46 Urine Color Yellow Urine Appearance Clear Urine pH 6.0 Ur Specific [place] 1.020 Urine Protein Negative Urine Glucose (UA) Negative Urine Ketones Negative Urine Blood Negative Urine Nitrite Negative Ur Leukocyte Esterase Trace H Urine RBC 0-2 Urine WBC 0-5 Ur Squamous Epith Cells 0-2 Urine Bacteria None Seen Hyaline Casts 0-2 Urine Opiates Screen Not Detected Ur Buprenorphine Scrn Not Detected Ur Oxycodone Screen Not Detected Urine Methadone Screen Not Detected Urine Fentanyl Screen Not Detected Ur Barbiturates Screen Not Detected Ur Phencyclidine Scrn Not Detected Ur Amphetamines Screen Not Detected U Benzodiazepines Scrn Not Detected Urine Cocaine Screen Not Detected U Marijuana (THC) Screen Not Detected Ethyl Alcohol 11 EKG EKG: reviewed Mental Status Exam Mental Status Exam Narrative: Appearance: Lying in hospital bed. Grooming/hygiene wnl. Good eye contact Attitude:Cooperative Speech: Fluent and wnl in regard to volume, tone, prosody Motor activity: Calm and without any tics, tremors or dyskinesias. Mood: as noted above Affect: appropriate Thought process: Goal directed for 50% of the interview. Perseverated on his communication w/ relatives Thought content: as noted above. No evidence of paranoia currently. Perception: Denies AH/VH. He was talking to himself when this creative writer left his room Insight: fair Judgment: fair Medications Medications Current Medications Acetaminophen (Acetaminophen 325 Mg Tablet) 650 mg PO Q6H PRN PRN Reason: Pain, Mild (Pain Scale 1-3) Apixaban (Apixaban 5 Mg Tablet) 5 mg PO BID GO Last Admin: 02/11/25 11:21 Dose: 5 mg Ascorbic Acid (Ascorbic Acid 500 Mg Tablet) 500 mg PO DAILY [facility] Last Admin: 02/11/25 11:20 Dose: 500 mg Bisacodyl (Bisacodyl 10 Mg Supp.Rect) 10 mg NJ DAILY PRN PRN Reason: Constipation Escitalopram Oxalate (Escitalopram Oxalate 10 Mg Tablet) 10 mg PO DAILY [facility] Last Admin: 02/11/25 11:20 Dose: 10 mg Ferrous Sulfate (Ferrous Sulfate 324 Mg Tablet.) 324 mg PO DAILY [facility] Last Admin: 02/11/25 11:30 Dose: 324 mg Finasteride (Finasteride 5 Mg Tablet) 5 mg PO DAILY [facility] Gabapentin (Gabapentin 100 Mg Capsule) 100 mg PO BID [facility] Last Admin: 02/11/25 11:21 Dose: 100 mg Lorazepam (Lorazepam 0.5 Mg Tablet) 0.5 mg PO TID PRN PRN Reason: Anxiety Last Admin: 02/11/25 11:20 Dose: 0.5 mg Magnesium Hydroxide (Milk Of Magnesia 30 Ml Oral.Susp) 30 ml PO DAILY PRN PRN Reason: Constipation Metoprolol Succinate (Metoprolol Succinate Er 50 Mg Tab.Er.24h) 50 mg PO DAILY [facility]; Protocol Last Admin: 02/11/25 11:21 Dose: 50 mg Mirtazapine (Mirtazapine 15 Mg Tablet) 15 mg PO BEDTIME [facility] Omeprazole (Omeprazole 40 Mg Capsule.) 40 mg PO DAILY@0630 [facility] Last Admin: 02/11/25 11:28 Dose: 40 mg Pravastatin Sodium (Pravastatin Sodium 40 Mg Tablet) 40 mg PO DAILY [facility] Last Admin: 02/11/25 11:29 Dose: 40 mg Senna (Sennosides 8.6 Mg Tablet) 8.6 mg PO BID PRN PRN Reason: Constipation Sodium Biphosphate/Sodium Phosphate (Sodium Phosphate,Burnet-Dibasic 133 Ml Enema) 118 ml NJ DAILY PRN PRN Reason: Constipation Vitamin D (Cholecalciferol (Vitamin D3) 25 Mcg Tablet) 50 mcg PO DAILY [facility] Last Admin: 02/11/25 11:20 Dose: 50 mcg Allergies Allergies Allergy/AdvReac Type Severity Reaction Status Date / Time No Known Allergies Allergy Verified 02/10/25 16:25 Assessment & Plan Assessment & Plan (1) Major neurocognitive disorder due to another medical condition, with agitation: Status: Acute Code(s): F02.811 - Dementia in other diseases classified elsewhere, unspecified severity, with agitation Plan Mr. Fuller is a 59 y/o M of descent with h/o BPH, L total knee replacement in Apr 2023, L leg paralysis since Apr 2023, arthritis, sleep apnea, HLD and HTN who was brought from his SNF by ambulance due to becoming extremely agitated . Per pt's , he has had multiple episodes of agitation at night and concerns that people are trying to harm him. He and his report that he started communicating w/ relatives in Apr 2023, which seems to be in line with their cultural beliefs. He has been self-dialoguing today in the ED. It's not clear if pt has been previously dx'd with dementia but his CT head, short-term memory impairment and sun downing behaviors support this dx. His UA was neg for UTI and CT head showed no acute changes. Treatment Recommendations: -Pt was agreeable to an inpatient psychiatric admission for diagnostic clarification and medication adjustments in a closely monitored setting for safety and stabilization. Thank you for referring Mr. Fuller for a psychiatric consultation. Please [place] Text me with any questions. Total time managing care of this patient today 90 minutes. Patient educated on: diagnosis and medication risk/benefits Informed Consent: understands
--- NOTE | 2025-02-11 14:41 | MHC.CARE ---
Pt seen for psych consult and will require inpatient level of care on [facility]-unit, patient will board in ED while a bed search is pursued.
--- NOTE | 2025-02-11 14:43 | ECG_ITS ---
Test Reason : QTC CHECK Blood Pressure : */* mmHG Vent. Rate : 74 BPM Atrial Rate : 74 BPM P-R Int : 170 ms QRS Dur : 82 ms QT Int : 364 ms P-R-T Axes : 48 -7 5 degrees QTcB Int : 404 ms Normal sinus rhythm Normal ECG When compared with ECG of 03-Feb-2025 11:10, No significant change was found Referred By: Codie Petty Electronically Signed By: JARRETT WATERMAN MD
[2025-02-12 07:28] VITALS: BP 132/77; PULSE 86; RESP 16; O2SAT 97
[2025-02-12 08:44] VITALS: BP 132/77; PULSE 81
[2025-02-12] MEDS: Ferrous Sulfate 324 MG TABLET.DR PO (08:44)
[2025-02-12] MEDS: Metoprolol Succinate ER 50 MG TAB.ER.24H PO (08:44)
[2025-02-12 16:09] VITALS: BP 114/75; PULSE 73; RESP 18; O2SAT 96
--- NOTE | 2025-02-12 19:20 | PC.NURSE ---
Assumed care of patient found in the fowlers position on his bed resting comfortably with sitter at bedside refused any complaints at this time. sitter at bedside
[2025-02-12 19:23] VITALS: BP 132/80; PULSE 85; RESP 16; TEMP 36.7; O2SAT 97
--- NOTE | 2025-02-12 20:15 | PC.NURSE ---
pt medicated per jun, tolerated whole well with water
--- NOTE | 2025-02-13 03:21 | PC.NURSE ---
when providing incontinence care, pt noted to have skin breakdown on bilateral buttox. no open wounds noted, barrier cream placed. PA Villar aware and wound consult placed
[2025-02-13 06:08] VITALS: BP 132/79; PULSE 71; RESP 16; TEMP 36.4; O2SAT 99
[2025-02-13 08:00] VITALS: BP 137/88; PULSE 70; RESP 20; O2SAT 96
[2025-02-13 09:14] VITALS: BP 104/65; PULSE 72; RESP 16; O2SAT 99
[2025-02-13] MEDS: Ferrous Sulfate 324 MG TABLET.DR PO (09:16)
[2025-02-13 19:05] VITALS: BP 129/80; PULSE 109; RESP 18; O2SAT 97
[2025-02-13 20:58] VITALS: BP 133/85; PULSE 95; RESP 16; TEMP 36.6; O2SAT 98
--- NOTE | 2025-02-13 21:32 | MHC.EDTECH ---
Patient inc therefore patient changed and repositioned
[2025-02-13 22:00] VITALS: BP 109/71; PULSE 89; RESP 16; TEMP 36.8; O2SAT 96
--- NOTE | 2025-02-13 22:56 | MHC.EDTECH ---
Patient inc therefore patient changed and repositioned
--- NOTE | 2025-02-14 04:22 | MHC.EDTECH ---
Patient was incontinent of urine and stool. This pilot plant research technician provided chantel care. Patient is able to turn side to side well, with minimal assistance.
[2025-02-14 08:34] VITALS: BP 123/84; PULSE 98; RESP 18; O2SAT 98
[2025-02-14] MEDS: Metoprolol Succinate ER 50 MG TAB.ER.24H PO (08:34)
[2025-02-14] MEDS: Ferrous Sulfate 324 MG TABLET.DR PO (08:38)
--- NOTE | 2025-02-14 09:30 | MHC.EDTECH ---
patient was incontinent of urine clean and changed patient. nurse aware
--- NOTE | 2025-02-14 09:59 | HO.WOUND ---
Wound Consult: Initial 59yr old?male seen in [facility] ED awaiting Inpatient Behavioral Health Bed availability arrival to ED on 02/10/25 - See progress notes and H&P for detailed history.? Wound consult placed for buttock wounds POA.? Patient agreeable to assessment and photo documentation.? Patient reports baseline incontinence at times - denies use of breif in normal circumstances. Skin assessed and noted to have evidence of hidradenitis suppurativa (HS). when discussing this with patient he reports he does recall having this diagnosis in and around college years. He felt it had resolved. Evidence of old lesions noted to both axilla, bilateral groin, buttock and posterior thighs in the ischial region. Right Axilla The right axilla does appear to have one small opening consistent with HS - at this time there was no active drainage noted no odor - would recommend routine regular cleaning and triad application monitor for worsening or increased flare. Bilateral groin is noted for pink mild erythema no open tissue noted - scar tissue and old tunneling sites observed consistent with HS - recommend barrier cream to protect from MASD and friction. Buttock and Posterior Thighs Coccyx - Intertrigo base of gluteal fold Etiology: ??MASD with Intertrigo at base of gluteal fold over coccyx Measurements: Intertrigo at coccyx 5cm x .03cm x 0.2cm Wound Bed: scattered open area to perianal and intergluteal area - pale thin yellow slough pink moist tissue - Drainage / Odor: no odor - serosang drainage noted Edges: ?irregular Chantel wound: Evidence of prior HS - scarring and irregular scar tissue formation noted - old tunneled scars noted evidence of HS ? No Induration, Fluctuance or Warmth noted Pain: denies Goals of Treatment: ? ?Triad to provide an occlusive dressing, to allow moist healing with absorption of mild exudate, to minimize contamination of urine/stool or bacteria, and to soothe and protect chantel wound skin Recommendations: 1. Turn and Reposition every 2 hours and as needed for patient comfort.? Use pillows or wedges to support off loading positions. 2. Off Load all bony prominences with use of pillows and heel boots if needed.? Apply Preventative foams where needed. ? 3. Monitor for incontinence and moisture control, use barrier creams when needed for prevention and treatment. 4. Provide adequate and supplemental nutrition.? 5. Order standard bed or low air loss mattress when available. 6. When applicable maintain blood glucose levels per Providers order. Buttock and Perianal - Off Load Pressure with Q2 hr turns and use of pillows - Cleanse with PH balance spray or wipes, pat dry. ?Apply thin layer of Triad to wound bed - only pat and dab no scrub and rub when soiling occurs. Reapply thin layer PRN after each episode of incontinence. Bilateral Groin and Right Axilla - ?Routine cleansing, dry well. ?Apply thin layer of Triad to wound bed - only pat and dab no scrub and rub when soiling occurs. Reapply thin layer PRN after each episode of incontinence. Re-consult wound care Nurse for wound deterioration or wound changes.
[2025-02-14 10:55] VITALS: BP 108/70; PULSE 77; RESP 16; TEMP 36.7; O2SAT 98
--- NOTE | 2025-02-14 12:36 | MHC.EDTECH ---
patient was incontinent again of urine this tech changed bedding and hospital gown and cleaned patient up. nurse aware
[2025-02-14 15:50] VITALS: BP 126/80; PULSE 79; RESP 20; TEMP 36.9; O2SAT 99
--- NOTE | 2025-02-14 18:28 | PC.NURSE ---
Pt. arrived on unit at 15:42 accompanied by this RN and security. Changeover with contraband search and skin assmt. conducted. No significant findings except redness due to moisture in groin. Pt. oriented to person only. He resides at [facility], and was sent to ED on section 12 after becoming aggressive at the facility. He has severely impaired ST memory and has no recollection of being at [facility] or becoming aggressive. 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 Pt. has had no behaviors or aggression while boarding in the ED. He has a hx. of an ankle surgery and wears a brace on his L foot. He is decompensated and is bed and WC bound. He required extensive assist of 3 to transfer. Pt. pleasantly confused and talkative. Socializing with peers when oriented to unit. Signed NANO for and [facility]. Both were updated about his admission to the unit.
--- NOTE | 2025-02-14 19:43 | HO.PSYADMNOT ---
HPI Date of Service: 02/14/25 Chief Complaint: agitation, ams Sources of Information: patient interviewed, chart reviewed and crisis/core team assessment reviewed HPI Subjective Notes: Section 12B Narrative: HPI done by Dr Cline on 02/11/25 during consultation. Mr. 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 On arrival to the ED, he was confused, believed Keon Elizalde is the president. Stated he didn't know why he was agitated and denied SI or violent ideation. Per collateral gathered by CARE Team from the SNF, pt has not been the same since one week ago after having a panic attack, associated with BP elevation, crying and not responding. He was sent to the ED and reportedly medically cleared. Per CARE assessment note by Sena Restrepo [facility]- - pt became more agitated and was not redirectable, yelling, yelling, screaming and crying and became combative when given lorazepam at the SNF yesterday -He has reportedly had significant short-term memory impairment x [address] head w/o contrast [facility] showed scattered subcortical and periventricular hypoattenuation, likely c/w chronic small vessel disease; parenchymal volume loss with prominence of ventricles and CSF space. There were no acute changes. UA was unremarkable. U tox neg Pt's (Talia) was at bedside and provided some of his history. She reports that pt has been unable to walk since his L leg was paralyzed in Apr 2023. She denies that pt had a stroke. It sounds like the mobility issues started after a fall in Apr 2023. He's been in and out of the hospital and rehab facilities since then. He reportedly had delusional episodes and outbursts during a 3 month stay at a rehab facility in [place]. He was seen by a psychiatrist at the rehab, who started him on prn lorazepam 0.5 mg tid, which may have helped somewhat with his agitation but he kept having delusions . When asked to describe the delusions, she states that pt would ask Why do I have to be here? (in the rehab/SNF) and You don't want me around anymore . 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 She is not able to manage him safely at home since he can't walk. Per Talia, pt has had some issues w/ confusion and disorientation since Apr 2023 but she feels like his memory has been significantly worse more recently. He asks about his mom, who 5 yrs ago, doesn't know where he lives. Talia notes that pt has been seeing both of their relatives since Apr 2023, which is not particularly bothersome to him. She reports that he gave perfect physical descriptions of them without ever having met them. He has had episodes of confusion/agitation at night, worrying that people were going to harm him and has yelled during the episodes. On S1: meet with patient in assigned room, we tried to get him out of bed to his for asssement but it seemed too much staff involved, therefore he agrees to have assessment at bedside. Reason for being brought to hospital is my foot . Patient states that his foot has been that way for a while. He is not sure if it s broken. He is not sure since when his foot has problem. He says he has the aircast on for a while. Report he lives at home with his wilfe. He has two adult children and they are staying with their grandfather. He says his home is in [place], he does not remember if he came to [facility] from home or from other facility. He denies mental health or substance use in family. Denies any substance use himself except for MJ which he already tried to cut down from MJ 6-7 years ago. Denies trauma hx. He does not know if he has OP Psychiatrist/therapist or PCP. Denies SI/SIB/HI/AVH. Denies suicide hx or hx of suicide attempts. Denies problems with sleep or appetite. Denies depresion and anxiety. Mood is pretty good . Report pain on foot and take medication for it but do not know what he was taking. Report he manages his medication but do not remember names of medications. Patient is A+O to self () not to his age, think he is 35 year-old, not to current month/date/day/year. Do not know he is in the hospital. Do not know he came from [facility]. Wearing hospital attire without bottom, observed having pull-up on. 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 Mood is pleasant and cooperative. Cognitive impairment, appears to be confused with disorganized thoughts. Impaired insight and judgment. He ambulate using WC. Speech is WNL, normal volume and rate, friendly. Thought content WNL, no SI/SIB/HI/AVH. Do not make any delusional or paranoid statement. Plan to continue with current home meds. Will place consult for PT evaluation. Collateral with family. Past Psychiatric History: Pt denies having any outpatient psychiatric provider or h/o IPLOC, PHP or respite Current tx: Jhon ( [facility]) [phone] Psychotropic meds listed on his [facility] record include escitalopram 10 mg qd, gabapentin 100 mg bid (rx'd for neuropathic pain), lorazepam .5 mg tid, and mirtazapine 15 mg qhs. Neither pt nor his know who rx'd the escitalopram or mirtazapine or whether he's been taking it lately. Medical Evaluation Reviewed: Yes [facility] Medical History History of infection of skin or subcutaneous tissue BPH (benign prostatic hyperplasia) Arthritis Hx of transfusion of packed red blood cells Anemia Sleep apnea Elevated cholesterol HTN (hypertension) Surgical History H/O colonoscopy History of ankle surgery Family History: Unknown. Patient denies family hx of mental health or substance use Social History: B/R in [place] by mom. Currently residing at [facility] Substance History: Denies. Report hx of MJ use. Trauma History: Pt denies Diagnostics Vital Signs (24Hr): Vital Signs - 24 hr 02/13/25 20:58 02/13/25 22:00 02/14/25 08:34 Temperature 97.8 F 98.3 F Pulse Rate 95 89 98 Respiratory Rate 16 16 18 Blood Pressure 133/85 109/71 123/84 Pulse Oximetry 98 96 98 Oxygen Delivery Method Room Air Room Air Room Air 02/14/25 08:34 02/14/25 10:55 02/14/25 15:50 Temperature 98.1 F 98.5 F Pulse Rate 98 77 79 Respiratory Rate 16 20 Blood Pressure 123/84 108/70 126/80 Pulse Oximetry 98 99 Oxygen Delivery Method Room Air Room Air BMI result Body Mass Index 32.9 Labs 02/10/25 17:30 02/10/25 17:30 Meds/Allergies Meds Home Medications ?Medication ?Instructions ?Recorded ?Confirmed ?Type finasteride 5 mg tablet 5 mg PO DAILY 05/18/23 02/11/25 History apixaban 5 mg tablet (Eliquis) 5 mg PO BID 02/11/25 02/11/25 History ascorbic acid (vitamin C) 500 mg 500 mg PO DAILY 02/11/25 02/11/25 History chewable tablet (Vitamin C) bisacodyl 10 mg rectal suppository 10 mg RI DAILY PRN Constipation 02/11/25 02/11/25 History cholecalciferol (vitamin D3) 25 50 mcg PO DAILY 02/11/25 02/11/25 History mcg (1,000 unit) tablet (Vitamin D3) escitalopram oxalate 10 mg tablet 10 mg PO DAILY 02/11/25 02/11/25 History (Lexapro) ferrous sulfate 325 mg (65 mg 325 mg PO DAILY 02/11/25 02/11/25 History iron) tablet gabapentin 100 mg capsule 100 mg PO BID 02/11/25 02/11/25 History lorazepam 0.5 mg tablet (Ativan) 0.5 mg PO TID PRN Anxiety 02/11/25 02/11/25 History magnesium hydroxide 400 mg/5 mL 30 ml PO DAILY PRN Constipation 02/11/25 02/11/25 History oral suspension (Milk of Magnesia) metoprolol succinate 50 mg 50 mg PO DAILY 02/11/25 02/11/25 History tablet,extended release 24 hr mirtazapine 15 mg tablet 15 mg PO BEDTIME 02/11/25 02/11/25 History omeprazole 40 mg capsule,delayed 40 mg PO DAILY@2000 02/11/25 02/11/25 History release pravastatin 40 mg tablet 40 mg PO DAILY 02/11/25 02/11/25 History sennosides 8.6 mg tablet (senna) 8.6 mg PO BID Constipation 02/11/25 02/11/25 History sodium phosphates 19 gram-7 118 ml RI DAILY PRN Constipation 02/11/25 02/11/25 History gram/118 mL enema (Fleet Enema) Allergies Allergies Allergy/AdvReac Type Severity Reaction Status Date / Time No Known Allergies Allergy Verified 02/10/25 16:25 Mental Status Exam Mental Status Exam Narrative: Patient is A+O to self () not to his age, not to current month/date/day/year. Do not know he is in the hospital. Do not know he came from [facility]. Wearing hospital attire without bottom, observed having pull-up on. 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 Mood is pleasant and cooperative. Cognitive impairment, appears to be confused with disorganized thoughts. Impaired insight and judgment. He ambulate using WC. Speech is WNL, normal volume and rate, friendly. Thought content WNL, no SI/SIB/HI/AVH. Assessment & Plan Assessment & Plan (1) Major neurocognitive disorder due to another medical condition, with agitation: Status: Acute Code(s): F02.811 - Dementia in other diseases classified elsewhere, unspecified severity, with agitation Plan HPI: Mr. 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 On arrival to the ED, he was confused, believed Keon Elizalde is the president. Stated he didn't know why he was agitated and denied SI or violent ideation. Per collateral gathered by CARE Team from the SNF, pt has not been the same since one week ago after having a panic attack, associated with BP elevation, crying and not responding. He was sent to the ED and reportedly medically cleared. Formulation/clinical reasoning: AMS, confused, forgetful with behavior changes, agitated x1 week. Impaired judgment and insight, appear to have some memory issues. Patient would benefit in restrictive environment for safety, medication adjustment and refer patient back to [facility] comes [facility]. Hospital course: 02/14/25: section 12B. Patient has no capacity to sign CV. Continue with all home meds. Ambulate using WC. Need nursing home administrator. Patient would benefit from PT evaluation. Plan Patient on 5 minute checks for safety. Admitted to S1. 12B Work with treatment team to do collateral with family Confirm psychiatric mental dx: not sure if he was dx with dementia. PT evaluation pending. Patient educated on: diagnosis, medication risk/benefits and therapeutic strategies Informed Consent: further education needed Reason for continued inpatient stay Substantial Risk for: inability to function and med/psych decompensation Statement Statement: I have reviewed the history and physical and performed a pertinent examination on my patient. No changes have occurred unless specified. If the History and Physical was not performed prior to admission, the Hospitalist's service will be consulted for completing the admission physical. Time Spent With Patient Time: Total time managing care of this patient today ____ minutes.
[2025-02-14 20:00] VITALS: BP 114/60; PULSE 76; RESP 18; TEMP 36.9; O2SAT 99
--- NOTE | 2025-02-15 02:53 | PC.NURSE ---
Pt henna of bed alarm. Pt sitting at the edge of the bed reporting that he wet himself. When asked if he know when he needs to use the bathroom the pt stated I sometime do but I think that I was in the [place] and I'm the [place]anny in the [place]. The pt is a 3 person assist for all transfers. Pt bears little weight on his left foot. Pt is wheelchair bound. The pt has a left groin rash, barrier cream applies to the buttock and groin.
[2025-02-15 08:00] VITALS: BP 120/67; PULSE 76; RESP 18; TEMP 36.7; O2SAT 98
[2025-02-15] MEDS: Metoprolol Succinate ER 50 MG TAB.ER.24H PO (08:14)
[2025-02-15] MEDS: Ferrous Sulfate 324 MG TABLET.DR PO (08:15)
[2025-02-15 08:30] LABS: Total Hemoglobin (HGBA1C) 3377.3519 umol/L
[2025-02-15 08:53] LABS: Alanine Aminotransferase 23 U/L (0-40); Albumin Level 4.4 g/dL (3.5-5.0); Alkaline Phosphatase 86 U/L (39-117); Anion Gap 11 (12-20); Aspartate Amino Transferase 29 U/L (5-37); Blood Urea Nitrogen 24 mg/dL (9-16); Calcium 10.0 mg/dL (8.4-10.2); Carbon Dioxide 27 mmol/L (22-29); Chloride 107 mmol/L (96-108); Cholesterol 165 mg/dL (<200); Creatinine Clr Calc Pharmacy 69.9; Estimated Glomerular Filt Rate 59; HDL Cholesterol 40 mg/dL (>40); Potassium 4.3 mmol/L (3.3-5.1); Sodium 141 mmol/L (135-145); Total Protein 8.4 g/dL (6.5-8.0); Triglycerides 157 mg/dL (<150)
[2025-02-15 09:17] LABS: Folate 8.5 ng/mL (> or = 4.0); Vitamin B12 627 pg/mL (200-900)
[2025-02-15 09:18] LABS: Free T4 (Free Thyroxine) 1.11 ng/dL (0.71-1.85); Thyroid Stimulating Hormone 0.39 uIU/mL (0.32-4.0)
--- NOTE | 2025-02-15 13:42 | HO.PSYCHPN ---
Subjective Subjective Date of Service: 02/15/25 Reason For Visit: agitation, ams Interim History: Patient seen. He is confused. Disoriented to time and place. Thought he was in senior care . He is cooperative with care. Calm. Constricted/blunted affect. Pleasant. Denies SI/HI/AVH. Review of Systems Review of Systems Patient unable to give detailed review of system has no specific complaints. Wearing boots on left foot. Yes all other systems are reviewed and are negative Mental Status Exam Mental Status Exam Narrative: Patient is A+O to self () not to his age, not to current month/date/day/year. Do not know he is in the hospital. Do not know he came from [facility]. Wearing hospital attire without bottom, observed having pull-up on. 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 Mood is pleasant and cooperative. Cognitive impairment, appears to be confused with disorganized thoughts. Impaired insight and judgment. He ambulate using WC. Speech is WNL, normal volume and rate, friendly. Thought content WNL, no SI/SIB/HI/AVH. Diagnostics Vital Signs (24Hr): Vital Signs - 24 hr 02/14/25 15:50 02/14/25 20:00 02/15/25 08:00 Temperature 98.5 F 98.4 F 98.1 F Pulse Rate 79 76 76 Respiratory Rate 20 18 18 Blood Pressure 126/80 114/60 120/67 Pulse Oximetry 99 99 98 Oxygen Delivery Method Room Air Room Air Room Air BMI result Body Mass Index 32.9 Labs 02/10/25 17:30 02/15/25 08:06 Labs: Laboratory Results - last 48 hr 02/15/25 08:06 Sodium 141 Potassium 4.3 Chloride 107 Carbon Dioxide 27 Anion Gap 11 L BUN 24 H Creatinine 1.25 Estim Creat Clear Calc 69.9 Estimated GFR 59 Random Glucose 91 Estimat Average Glucose 105 Hemoglobin A1c % 5.3 Calcium 10.0 Total Bilirubin 0.3 AST 29 ALT 23 Alkaline Phosphatase 86 Total Protein 8.4 H Albumin 4.4 Triglycerides 157 H Cholesterol 165 LDL Cholesterol, Calc 94 HDL Cholesterol 40 L Vitamin B12 627 Folate 8.5 TSH 0.39 Free T4 1.11 Medications Medications Current Medications Acetaminophen (Acetaminophen 325 Mg Tablet) 650 mg PO Q6H PRN PRN Reason: Pain, Mild (Pain Scale 1-3) Al Hydroxide/Mg Hydroxide (Magnesium Hydrox/Alum Hydrox 30 Ml Oral.Susp) 30 ml PO Q6H PRN PRN Reason: Heartburn/Nausea Apixaban (Apixaban 5 Mg Tablet) 5 mg PO BID [facility] Last Admin: 02/15/25 08:14 Dose: 5 mg Ascorbic Acid (Ascorbic Acid 500 Mg Tablet) 500 mg PO DAILY [facility] Last Admin: 02/15/25 08:15 Dose: 500 mg Bisacodyl (Bisacodyl 10 Mg Supp.Rect) 10 mg WI DAILY PRN PRN Reason: Constipation Escitalopram Oxalate (Escitalopram Oxalate 10 Mg Tablet) 10 mg PO DAILY [facility] Last Admin: 02/15/25 08:15 Dose: 10 mg Ferrous Sulfate (Ferrous Sulfate 324 Mg Tablet.) 324 mg PO DAILY [facility] Last Admin: 02/15/25 08:15 Dose: 324 mg Finasteride (Finasteride 5 Mg Tablet) 5 mg PO DAILY [facility] Last Admin: 02/15/25 08:15 Dose: 5 mg Gabapentin (Gabapentin 100 Mg Capsule) 100 mg PO BID [facility] Last Admin: 02/15/25 08:15 Dose: 100 mg Hydroxyzine HCl (Hydroxyzine Hcl 25 Mg Tablet) 25 mg PO Q6H PRN PRN Reason: mild anxiety Lorazepam (Lorazepam 0.5 Mg Tablet) 0.5 mg PO TID PRN PRN Reason: Anxiety Last Admin: 02/13/25 13:42 Dose: 0.5 mg Magnesium Hydroxide (Milk Of Magnesia 30 Ml Oral.Susp) 30 ml PO DAILY PRN PRN Reason: Constipation Metoprolol Succinate (Metoprolol Succinate Er 50 Mg Tab.Er.24h) 50 mg PO DAILY [facility]; Protocol Last Admin: 02/15/25 08:14 Dose: 50 mg Mirtazapine (Mirtazapine 15 Mg Tablet) 15 mg PO BEDTIME [facility] Last Admin: 02/14/25 21:10 Dose: 15 mg Nicotine (Nicotine 21 Mg Patch.Td24) 21 mg TRANSDERMA DAILY PRN PRN Reason: nicotine craving Nicotine Polacrilex (Nicotine Polacrilex 2 Mg Gum) 2 mg BUCCAL Q2H PRN PRN Reason: Nicotine Cravings Omeprazole (Omeprazole 40 Mg Capsule.) 40 mg PO DAILY@0630 [facility] Last Admin: 02/15/25 06:20 Dose: 40 mg Pravastatin Sodium (Pravastatin Sodium 40 Mg Tablet) 40 mg PO DAILY [facility] Last Admin: 02/15/25 08:14 Dose: 40 mg Senna (Sennosides 8.6 Mg Tablet) 8.6 mg PO BID PRN PRN Reason: Constipation Sodium Biphosphate/Sodium Phosphate (Sodium Phosphate,Uintah-Dibasic 133 Ml Enema) 118 ml WI DAILY PRN PRN Reason: Constipation Trazodone HCl (Trazodone Hcl 50 Mg Tablet) 50 mg PO BEDTIME MRX1 PRN PRN Reason: Insomnia Vitamin D (Cholecalciferol (Vitamin D3) 25 Mcg Tablet) 50 mcg PO DAILY [facility] Last Admin: 02/15/25 08:15 Dose: 50 mcg Allergies Allergies Allergy/AdvReac Type Severity Reaction Status Date / Time No Known Allergies Allergy Verified 02/10/25 16:25 Assessment & Plan Assessment & Plan (1) Major neurocognitive disorder due to another medical condition, with agitation: Status: Acute Code(s): F02.811 - Dementia in other diseases classified elsewhere, unspecified severity, with agitation Plan HPI: Mr. 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 On arrival to the ED, he was confused, believed Keon Elizalde is the president. Stated he didn't know why he was agitated and denied SI or violent ideation. Per collateral gathered by CARE Team from the SNF, pt has not been the same since one week ago after having a panic attack, associated with BP elevation, crying and not responding. He was sent to the ED and reportedly medically cleared. Formulation/clinical reasoning: AMS, confused, forgetful with behavior changes, agitated x1 week. Impaired judgment and insight, appear to have some memory issues. Patient would benefit in restrictive environment for safety, medication adjustment and [facility] Hospital course: 02/14/25: section 12B. Patient has no capacity to sign CV. Continue with all home meds. Ambulate using WC. Need nursing consultant. Patient would benefit from PT evaluation. 02/15: continue current management and treatment plan. Plan Patient on 5 minute checks for safety. Admitted to S1. 12B Work with treatment team to do collateral with family Confirm psychiatric mental dx: not sure if he was dx with dementia. PT evaluation pending. Reason for continued inpatient stay Substantial Risk for: harm to others, inability to function and rapid decompensation Time Spent With Patient Time: Total time managing care of this patient today ____ minutes.
[2025-02-15 20:00] VITALS: BP 98/55; PULSE 69; RESP 18; TEMP 36.5; O2SAT 98
[2025-02-16 08:00] VITALS: BP 121/72; PULSE 66; RESP 18; TEMP 36.7; O2SAT 100
[2025-02-16] MEDS: Metoprolol Succinate ER 50 MG TAB.ER.24H PO (08:09)
[2025-02-16] MEDS: Ferrous Sulfate 324 MG TABLET.DR PO (08:09)
--- NOTE | 2025-02-16 09:42 | P.PNPSI_ITS ---
Subjective Subjective Date of Service: 02/16/25 Reason For Visit: agitation, ams Interim History: Patient seen. He says I feel lost . He is disoriented to time and place. He says I am in a facility that helps people . Not sure why he is at the hospital. He says it is hard to face things when you are on your own. He struggles because of his drop foot. RN reports he is wearing a brace that is for a right foot on his left foot where his drop foot is. So he will need another brace. He is cooperative with care. Calm. Constricted/blunted affect. Polite. Denies SI/HI/AVH. Review of Systems Review of Systems Patient unable to give detailed review of system has no specific complaints. Wearing boots on left foot. Yes all other systems are reviewed and are negative Mental Status Exam Mental Status Exam Narrative: Patient is A+O to self () not to his age, not to current month/date/day/year. Do not know he is in the hospital. Do not know he came from [facility]. Wearing hospital attire without bottom, observed having pull-up on. 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 Mood is pleasant and cooperative. Cognitive impairment, appears to be confused with disorganized thoughts. Impaired insight and judgment. He ambulate using WC. Speech is WNL, normal volume and rate, friendly. Thought content WNL, no SI/SIB/HI/AVH. Diagnostics Vital Signs (24Hr): Vital Signs - 24 hr 02/15/25 20:00 02/16/25 08:00 Temperature 97.7 F 98.1 F Pulse Rate 69 66 Respiratory Rate 18 18 Blood Pressure 98/55 L 121/72 Pulse Oximetry 98 100 Oxygen Delivery Method Room Air BMI result Body Mass Index 32.9 Labs 02/10/25 17:30 02/15/25 08:06 Labs: Laboratory Results - last 48 hr 02/15/25 08:06 Sodium 141 Potassium 4.3 Chloride 107 Carbon Dioxide 27 Anion Gap 11 L BUN 24 H Creatinine 1.25 Estim Creat Clear Calc 69.9 Estimated GFR 59 Random Glucose 91 Estimat Average Glucose 105 Hemoglobin A1c % 5.3 Calcium 10.0 Total Bilirubin 0.3 AST 29 ALT 23 Alkaline Phosphatase 86 Total Protein 8.4 H Albumin 4.4 Triglycerides 157 H Cholesterol 165 LDL Cholesterol, Calc 94 HDL Cholesterol 40 L Vitamin B12 627 Folate 8.5 TSH 0.39 Free T4 1.11 Medications Medications Current Medications Acetaminophen (Acetaminophen 325 Mg Tablet) 650 mg PO Q6H PRN PRN Reason: Pain, Mild (Pain Scale 1-3) Al Hydroxide/Mg Hydroxide (Magnesium Hydrox/Alum Hydrox 30 Ml Oral.Susp) 30 ml PO Q6H PRN PRN Reason: Heartburn/Nausea Apixaban (Apixaban 5 Mg Tablet) 5 mg PO BID [facility] Last Admin: 02/16/25 08:09 Dose: 5 mg Ascorbic Acid (Ascorbic Acid 500 Mg Tablet) 500 mg PO DAILY [facility] Last Admin: 02/16/25 08:09 Dose: 500 mg Bisacodyl (Bisacodyl 10 Mg Supp.Rect) 10 mg MS DAILY PRN PRN Reason: Constipation Escitalopram Oxalate (Escitalopram Oxalate 10 Mg Tablet) 10 mg PO DAILY [facility] Last Admin: 02/16/25 08:09 Dose: 10 mg Ferrous Sulfate (Ferrous Sulfate 324 Mg Tablet.Dr) 324 mg PO DAILY [facility] Last Admin: 02/16/25 08:09 Dose: 324 mg Finasteride (Finasteride 5 Mg Tablet) 5 mg PO DAILY [facility] Last Admin: 02/16/25 08:09 Dose: 5 mg Gabapentin (Gabapentin 100 Mg Capsule) 100 mg PO BID [facility] Last Admin: 02/16/25 08:09 Dose: 100 mg Hydroxyzine HCl (Hydroxyzine Hcl 25 Mg Tablet) 25 mg PO Q6H PRN PRN Reason: mild anxiety Lorazepam (Lorazepam 0.5 Mg Tablet) 0.5 mg PO TID PRN PRN Reason: Anxiety Last Admin: 02/13/25 13:42 Dose: 0.5 mg Magnesium Hydroxide (Milk Of Magnesia 30 Ml Oral.Susp) 30 ml PO DAILY PRN PRN Reason: Constipation Metoprolol Succinate (Metoprolol Succinate Er 50 Mg Tab.Er.24h) 50 mg PO DAILY [facility]; Protocol Last Admin: 02/16/25 08:09 Dose: 50 mg Mirtazapine (Mirtazapine 15 Mg Tablet) 15 mg PO BEDTIME [facility] Last Admin: 02/15/25 20:21 Dose: 15 mg Nicotine (Nicotine 21 Mg Patch.Td24) 21 mg TRANSDERMA DAILY PRN PRN Reason: nicotine craving Nicotine Polacrilex (Nicotine Polacrilex 2 Mg Gum) 2 mg BUCCAL Q2H PRN PRN Reason: Nicotine Cravings Omeprazole (Omeprazole 40 Mg Capsule.) 40 mg PO DAILY@0630 [facility] Last Admin: 02/16/25 06:14 Dose: 40 mg Pravastatin Sodium (Pravastatin Sodium 40 Mg Tablet) 40 mg PO DAILY [facility] Last Admin: 02/16/25 08:09 Dose: 40 mg Senna (Sennosides 8.6 Mg Tablet) 8.6 mg PO BID PRN PRN Reason: Constipation Sodium Biphosphate/Sodium Phosphate (Sodium Phosphate,[place]-Dibasic 133 Ml Enema) 118 ml MS DAILY PRN PRN Reason: Constipation Trazodone HCl (Trazodone Hcl 50 Mg Tablet) 50 mg PO BEDTIME MRX1 PRN PRN Reason: Insomnia Last Admin: 02/15/25 23:39 Dose: 50 mg Vitamin D (Cholecalciferol (Vitamin D3) 25 Mcg Tablet) 50 mcg PO DAILY [facility] Last Admin: 02/16/25 08:09 Dose: 50 mcg Allergies Allergies Allergy/AdvReac Type Severity Reaction Status Date / Time No Known Allergies Allergy Verified 02/10/25 16:25 Assessment & Plan Assessment & Plan (1) Major neurocognitive disorder due to another medical condition, with agitation: Status: Acute Code(s): F02.811 - Dementia in other diseases classified elsewhere, unspecified severity, with agitation Plan HPI: Mr. 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 On arrival to the ED, he was confused, believed Keon Elizalde is the president. Stated he didn't know why he was agitated and denied SI or violent ideation. Per collateral gathered by CARE Team from the SNF, pt has not been the same since one week ago after having a panic attack, associated with BP elevation, crying and not responding. He was sent to the ED and reportedly medically cleared. Formulation/clinical reasoning: AMS, confused, forgetful with behavior changes, agitated x1 week. Impaired judgment and insight, appear to have some memory issues. Patient would benefit in restrictive environment for safety, medication adjustment and refer patient back to [facility]. Hospital course: 02/14/25: section 12B. Patient has no capacity to sign CV. Continue with all home meds. Ambulate using WC. Need assistant in nursing. Patient would benefit from PT evaluation. 02/15: continue current management and treatment plan. 02/16: continue current management and treatment plan. he is wearing an ankle brace that is for a right foot on his left foot where his drop foot is. So he will need another brace. PT eval ordered. Plan Patient on 5 minute checks for safety. Admitted to S1. 12B Work with treatment team to do collateral with family Confirm psychiatric mental dx: not sure if he was dx with dementia. PT evaluation pending. Reason for continued inpatient stay Substantial Risk for: inability to function, rapid decompensation and med/psych decompensation Time Spent With Patient Time: Total time managing care of this patient today ____ minutes.
[2025-02-16 20:00] VITALS: BP 157/84; PULSE 67; RESP 18; TEMP 36.8; O2SAT 99
[2025-02-17 09:08] VITALS: BP 113/58; PULSE 70; RESP 16; TEMP 36.6; O2SAT 98
[2025-02-17] MEDS: Metoprolol Succinate ER 50 MG TAB.ER.24H PO (09:10)
[2025-02-17] MEDS: Ferrous Sulfate 324 MG TABLET.DR PO (09:10)
--- NOTE | 2025-02-17 09:33 | HO.PSYCHPN ---
Subjective Subjective Date of Service: 02/17/25 Reason For Visit: agitation, ams Subjective Notes: Section 12B Interim History: Pt unable to give clear hx , moca markedly impaired pt pleasant engaged focus on the past.Not combative or PI not really understanding circumstances that brought him here. Medication Compliance: Yes Review of Systems Acute medical concerns: No Mental Status Exam Mental Status Exam Narrative: Patient is A+O to self () not to his age, not to current month/date/day/year. Do not know he is in the hospital. Does not know he came from [facility]. Wearing hospital attire sitting in wheelchair.. . Mood is pleasant and cooperative. Cognitive impairment, appears to be confused with disorganized thoughts. Impaired insight and judgment. Speech is WNL, normal volume and rate, friendly. Thought content WNL, no SI/SIB/HI/AVH. Not combative or agitated Diagnostics Vital Signs (24Hr): Vital Signs - 24 hr 02/16/25 20:00 02/17/25 09:08 Temperature 98.3 F 98 F Pulse Rate 67 70 Respiratory Rate 18 16 Blood Pressure 157/84 H 113/58 L Pulse Oximetry 99 98 Oxygen Delivery Method Room Air Room Air BMI result Body Mass Index 32.9 Labs 02/10/25 17:30 02/15/25 08:06 Labs: Laboratory Results - last 48 hr 02/15/25 08:06 Random Glucose 91 Medications Medications Current Medications Acetaminophen (Acetaminophen 325 Mg Tablet) 650 mg PO Q6H PRN PRN Reason: Pain, Mild (Pain Scale 1-3) Al Hydroxide/Mg Hydroxide (Magnesium Hydrox/Alum Hydrox 30 Ml Oral.Susp) 30 ml PO Q6H PRN PRN Reason: Heartburn/Nausea Apixaban (Apixaban 5 Mg Tablet) 5 mg PO BID [facility] Last Admin: 02/17/25 09:10 Dose: 5 mg Ascorbic Acid (Ascorbic Acid 500 Mg Tablet) 500 mg PO DAILY [facility] Last Admin: 02/17/25 09:05 Dose: 500 mg Bisacodyl (Bisacodyl 10 Mg Supp.Rect) 10 mg DE DAILY PRN PRN Reason: Constipation Escitalopram Oxalate (Escitalopram Oxalate 10 Mg Tablet) 10 mg PO DAILY [facility] Last Admin: 02/17/25 09:06 Dose: 10 mg Ferrous Sulfate (Ferrous Sulfate 324 Mg Tablet.) 324 mg PO DAILY [facility] Last Admin: 02/17/25 09:10 Dose: 324 mg Finasteride (Finasteride 5 Mg Tablet) 5 mg PO DAILY [facility] Last Admin: 02/17/25 09:05 Dose: 5 mg Gabapentin (Gabapentin 100 Mg Capsule) 100 mg PO BID [facility] Last Admin: 02/17/25 09:06 Dose: 100 mg Hydroxyzine HCl (Hydroxyzine Hcl 25 Mg Tablet) 25 mg PO Q6H PRN PRN Reason: mild anxiety Lorazepam (Lorazepam 0.5 Mg Tablet) 0.5 mg PO TID PRN PRN Reason: Anxiety Last Admin: 02/13/25 13:42 Dose: 0.5 mg Magnesium Hydroxide (Milk Of Magnesia 30 Ml Oral.Susp) 30 ml PO DAILY PRN PRN Reason: Constipation Metoprolol Succinate (Metoprolol Succinate Er 50 Mg Tab.Er.24h) 50 mg PO DAILY [facility]; Protocol Last Admin: 02/17/25 09:10 Dose: 50 mg Mirtazapine (Mirtazapine 15 Mg Tablet) 15 mg PO BEDTIME [facility] Last Admin: 02/16/25 20:13 Dose: 15 mg Nicotine (Nicotine 21 Mg Patch.Td24) 21 mg TRANSDERMA DAILY PRN PRN Reason: nicotine craving Nicotine Polacrilex (Nicotine Polacrilex 2 Mg Gum) 2 mg BUCCAL Q2H PRN PRN Reason: Nicotine Cravings Omeprazole (Omeprazole 40 Mg Capsule.Dr) 40 mg PO DAILY@0630 [facility] Last Admin: 02/17/25 05:47 Dose: 40 mg Pravastatin Sodium (Pravastatin Sodium 40 Mg Tablet) 40 mg PO DAILY [facility] Last Admin: 02/17/25 09:06 Dose: 40 mg Senna (Sennosides 8.6 Mg Tablet) 8.6 mg PO BID PRN PRN Reason: Constipation Sodium Biphosphate/Sodium Phosphate (Sodium Phosphate,[place]-Dibasic 133 Ml Enema) 118 ml DE DAILY PRN PRN Reason: Constipation Trazodone HCl (Trazodone Hcl 50 Mg Tablet) 50 mg PO BEDTIME MRX1 PRN PRN Reason: Insomnia Last Admin: 02/16/25 20:13 Dose: 50 mg Vitamin D (Cholecalciferol (Vitamin D3) 25 Mcg Tablet) 50 mcg PO DAILY [facility] Last Admin: 02/17/25 09:05 Dose: 50 mcg Allergies Allergies Allergy/AdvReac Type Severity Reaction Status Date / Time No Known Allergies Allergy Verified 02/10/25 16:25 Assessment & Plan Assessment & Plan (1) Major neurocognitive disorder due to another medical condition, with agitation: Status: Acute Code(s): F02.811 - Dementia in other diseases classified elsewhere, unspecified severity, with agitation Plan HPI: Mr. 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 On arrival to the ED, he was confused, believed Keon Elizalde is the president. Stated he didn't know why he was agitated and denied SI or violent ideation. Per collateral gathered by CARE Team from the SNF, pt has not been the same since one week ago after having a panic attack, associated with BP elevation, crying and not responding. He was sent to the ED and reportedly medically cleared. Formulation/clinical reasoning: AMS, confused, forgetful with behavior changes, agitated x1 week. Impaired judgment and insight, appear to have some memory issues. Patient would benefit in restrictive environment for safety, medication adjustment and refer patient back to Snf where patient comes from. Hospital course: 02/14/25: section 12B. Patient has no capacity to sign CV. Continue with all home meds. Ambulate using WC. Need nursing unit coordinator. Patient would benefit from PT evaluation. 02/15: continue current management and treatment plan. 02/16: continue current management and treatment plan. he is wearing an ankle brace that is for a right foot on his left foot where his drop foot is. So he will need another brace. PT eval ordered. 02/17/25 Pt seems behavioral stable at this time ? return to [facility] ? does pt have guardian or hcp Plan Patient on 5 minute checks for safety. Admitted to S1. 12B Work with treatment team to do collateral with family Confirm psychiatric mental dx: not sure if he was dx with dementia. PT evaluation pending. Reason for continued inpatient stay Substantial Risk for: inability to function and rapid decompensation Time Spent With Patient Time: Total time managing care of this patient today ____ minutes.
[2025-02-17 20:00] VITALS: BP 110/55; PULSE 88; RESP 18; TEMP 36.4; O2SAT 97
[2025-02-18 03:35] LABS: Syphilis Screen Reactive (Nonreactive)
[2025-02-18 03:47] LABS: HIV Num 1 0.05 S/CO (0.00-0.99)
[2025-02-18 08:20] VITALS: BP 117/69; PULSE 77; RESP 16; TEMP 36.8; O2SAT 97
[2025-02-18] MEDS: Metoprolol Succinate ER 50 MG TAB.ER.24H PO (08:24)
[2025-02-18] MEDS: Ferrous Sulfate 324 MG TABLET.DR PO (08:24)
--- NOTE | 2025-02-18 10:25 | P.CONHOSP_ITS ---
History of Present Illness Data of Consult Service Date: 02/18/25 Primary Care Provider: Unknown Physician HPI 59-year-old male with past medical history of CVA, HTN, BPH, HLD, arthritis, sleep apnea, hidradenitis suppurativa and dementia who resides at [facility], presented to the ED via EMS with increased confusion, worsening memory agitated behavior. His U tox was negative, EtOH level 11. No leukocytosis, mild anemia. No electrolyte imbalances, renal function stable, urinalysis without infection. On exam he has no complaints. Oriented to self. Not to place or time. No agitation. He is listening to music which he reports helps calm his mood. Review of Systems 2 Review of Systems: Denies any shortness of breath, chest pain, headaches, dysuria, abdominal pain. [facility] Medical History (Updated 02/18/25 @ 13:41 by Jazlyn Dorado DNP) History of infection of skin or subcutaneous tissue BPH (benign prostatic hyperplasia) Arthritis Hx of transfusion of packed red blood cells Anemia Sleep apnea Elevated cholesterol HTN (hypertension) Surgical History H/O colonoscopy History of ankle surgery Social History Household Members: Other Household Members Other:: Nursing facility Housing: Shelter Are you a primary foster care worker to a significant other at home: No Comment: 5 minute checks Patient Tobacco Use Status: Former Tobacco user Tobacco use type: Cigarette Smoked in Last 30 Days: No e-Cigarette/Vaping Use: Never Used Patient Interested in Nicotine Replacement: No Patient Given Instructions on How to Stop Smoking: No Second Hand Smoke Exposure: No Use of substances other than those prescribed or required for medical reasons: No Substance Use Type: Marijuana Currently Displaying Signs/Symptoms of Drug Intoxication Withdrawal: No Have you been hit, kicked, punched, or otherwise hurt by someone within the past year? If so, by whom?: No Do you feel safe in your current relationship?: Yes Is there a partner from a previous relationship who is making you feel unsafe now?: No Are you made to feel afraid or neglected: No Advance Directives: Yes Advance Directives Information Provided: No Advance Directives on File: Yes Advance Directives Date on File: 02/03/25 Do you have thoughts of harming others: None Do you have a plan to hurt others: No Plan Recently lost weight without trying: No Eating poorly because of decreased appetite: No Nutrition Risks: No Nutritional Risk Poor oral hygiene: No service: No 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al status: disabled 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 Sexual orientation: Straight/Heterosexual Meds Allergies Allergy/AdvReac Type Severity Reaction Status Date / Time No Known Allergies Allergy Verified 02/10/25 16:25 Active Medications: Current Medications Acetaminophen (Acetaminophen 325 Mg Tablet) 650 mg PO Q6H PRN PRN Reason: Pain, Mild (Pain Scale 1-3) Al Hydroxide/Mg Hydroxide (Magnesium Hydrox/Alum Hydrox 30 Ml Oral.Susp) 30 ml PO Q6H PRN PRN Reason: Heartburn/Nausea Apixaban (Apixaban 5 Mg Tablet) 5 mg PO BID [facility] Last Admin: 02/18/25 08:24 Dose: 5 mg Ascorbic Acid (Ascorbic Acid 500 Mg Tablet) 500 mg PO DAILY [facility] Last Admin: 02/18/25 08:24 Dose: 500 mg Bisacodyl (Bisacodyl 10 Mg Supp.Rect) 10 mg FL DAILY PRN PRN Reason: Constipation Escitalopram Oxalate (Escitalopram Oxalate 10 Mg Tablet) 10 mg PO DAILY [facility] Last Admin: 02/18/25 08:24 Dose: 10 mg Ferrous Sulfate (Ferrous Sulfate 324 Mg Tablet.Dr) 324 mg PO DAILY [facility] Last Admin: 02/18/25 08:24 Dose: 324 mg Finasteride (Finasteride 5 Mg Tablet) 5 mg PO DAILY [facility] Last Admin: 02/18/25 08:25 Dose: 5 mg Gabapentin (Gabapentin 100 Mg Capsule) 100 mg PO BID [facility] Last Admin: 02/18/25 08:24 Dose: 100 mg Hydroxyzine HCl (Hydroxyzine Hcl 25 Mg Tablet) 25 mg PO Q6H PRN PRN Reason: mild anxiety Lorazepam (Lorazepam 0.5 Mg Tablet) 0.5 mg PO TID PRN PRN Reason: Anxiety Last Admin: 02/13/25 13:42 Dose: 0.5 mg Magnesium Hydroxide (Milk Of Magnesia 30 Ml Oral.Susp) 30 ml PO DAILY PRN PRN Reason: Constipation Metoprolol Succinate (Metoprolol Succinate Er 50 Mg Tab.Er.24h) 50 mg PO DAILY [facility]; Protocol Last Admin: 02/18/25 08:24 Dose: 50 mg Mirtazapine (Mirtazapine 15 Mg Tablet) 15 mg PO BEDTIME [facility] Last Admin: 02/17/25 20:34 Dose: 15 mg Nicotine (Nicotine 21 Mg Patch.Td24) 21 mg TRANSDERMA DAILY PRN PRN Reason: nicotine craving Nicotine Polacrilex (Nicotine Polacrilex 2 Mg Gum) 2 mg BUCCAL Q2H PRN PRN Reason: Nicotine Cravings Omeprazole (Omeprazole 40 Mg Capsule.Dr) 40 mg PO DAILY@0630 [facility] Last Admin: 02/18/25 06:22 Dose: 40 mg Pravastatin Sodium (Pravastatin Sodium 40 Mg Tablet) 40 mg PO DAILY [facility] Last Admin: 02/18/25 08:24 Dose: 40 mg Senna (Sennosides 8.6 Mg Tablet) 8.6 mg PO BID PRN PRN Reason: Constipation Sodium Biphosphate/Sodium Phosphate (Sodium Phosphate,[place]-Dibasic 133 Ml Enema) 118 ml FL DAILY PRN PRN Reason: Constipation Trazodone HCl (Trazodone Hcl 50 Mg Tablet) 50 mg PO BEDTIME MRX1 PRN PRN Reason: Insomnia Last Admin: 02/17/25 20:34 Dose: 50 mg Vitamin D (Cholecalciferol (Vitamin D3) 25 Mcg Tablet) 50 mcg PO DAILY [facility] Last Admin: 02/18/25 08:25 Dose: 50 mcg Home Medications ?Medication ?Instructions ?Recorded ?Confirmed ?Last Taken ?Type finasteride 5 mg tablet 5 mg PO DAILY 05/18/2302/11 Unknown History apixaban 5 mg tablet (Eliquis) 5 mg PO BID 02/11/25 Unknown History ascorbic acid (vitamin C) 500 mg 500 mg PO DAILY 02/1102/11/25 Unknown History chewable tablet (Vitamin C) bisacodyl 10 mg rectal suppository 10 mg FL DAILY PRN Constipation 02/11/25 02/11/25 Unknown History cholecalciferol (vitamin D3) 25 50 mcg PO DAILY 02/11/25 Unknown History mcg (1,000 unit) tablet (Vitamin D3) escitalopram oxalate 10 mg tablet 10 mg PO DAILY 02/1102/11/25 Unknown History (Lexapro) ferrous sulfate 325 mg (65 mg 325 mg PO DAILY 02/11/25 02/11/25 Unknown History iron) tablet gabapentin 100 mg capsule 100 mg PO BID 02/11/2502/11 Unknown History lorazepam 0.5 mg tablet (Ativan) 0.5 mg PO TID PRN Anx iety 02/11/25 02/11/25 Unknown History magnesium hydroxide 400 mg/5 mL 30 ml PO DAILY PRN Con stipation 02/11/25 02/11/25 Unknown History oral suspension (Milk of Magnesia) metoprolol succinate 50 mg 50 mg PO DAILY 02/11/25 Unknown History tablet,extended release 24 hr mirtazapine 15 mg tablet 15 mg PO BEDTIME 02/11/25 Unknown History omeprazole 40 mg capsule,delayed 40 mg PO DAILY@2000 02/11/25 Unknown History release pravastatin 40 mg tablet 40 mg PO DAILY 02/11/2501/23 Unknown History sennosides 8.6 mg tablet (senna) 8.6 mg PO BID Constip ation 02/11/25 02/11/25 Unknown History sodium phosphates 19 gram-7 118 ml FL DAILY PRN Consti pation 02/11/25 02/11/25 Unknown History gram/118 mL enema (Fleet Enema) Physical Exam 2 Vital Signs and Narrative: Vital Signs: Last Vital Signs Temp 98.2 F 02/18/25 08:20 Pulse 77 02/18/25 08:20 Resp 16 02/18/25 08:20 BP 117/69 02/18/25 08:20 Pulse Ox 97 02/18/25 08:20 O2 Del Method Room Air 02/18/25 08:20 BMI result Body Mass Index 32.9 Alert and oriented X1, calm and cooperative. Answers simple questions. Neuro: CN II-X11 intact, no deficits, visual acuity intact EYES: PERRLA, EOM intact ENT: Hearing intact, MMM Cardiac: S1 S2 RRR, No ectopy Pulmonary: lungs clear to auscultation, No increased WOB. Abdominal: BS active in all 4 quadrants, no guarding or tenderness MSK: Strength 5/5 upper and lower extremities. WC level. : Deferred Extremities: No edema in lower extremities Psych: Mood stable, Quiet and cooperative. Skin: Warm and dry, Intact Results Labs 02/10/25 17:30 10/25/25 08:06 Labs: Laboratory Results - last 24 hr 02/17/25 17:26 ESR 30 H T.pallidum Ab (EIA) Reactive A HIV 1&2 Ab/P24 Ag 4thGn Nonreactive Assessment and Plan (1) HTN (hypertension): Status: Acute Plan 59-year-old male with past medical history listed below presented with increased aggressive behavior, mental status changes now admitted to inpatient psych for further care and treatment. Patient has had several inpatient hospitalizations and decompensation. Neurocognitive disorder with agitation/Dementia Treatment per psychiatric team Hypertension/hyperlipidemia/history of CVA Continue metoprolol, pravastatin, Eliquis Blood pressure stable BPH Continue finasteride Hidradenitis suppurativa Stable no issues History iron deficiency anemia Stable Continue daily Thank you for allowing me to participate in the care of this patient. Will follow with you, please notify medical provider with any changes in condition or concerns.
[2025-02-18 20:00] VITALS: BP 94/53; PULSE 64; RESP 15; TEMP 36.4; O2SAT 100
--- NOTE | 2025-02-18 22:32 | P.PNPSI_ITS ---
Subjective Subjective Date of Service: 02/18/25 Reason For Visit: agitation, ams Subjective Notes: Section 12B Healthcare Proxy: Yes Interim History: Hx now available hx of severe cerebral anoxic event pleasant but not orriented to place recent events where he lives etc uses wheelchair pleasantly confused Medication Compliance: Yes Review of Systems Acute medical concerns: Yes need for brace Mental Status Exam Mental Status Exam Narrative: Patient is A+O to self () not to his age, not to current month/date/day/year. Do not know he is in the hospital. Does not know he came from [facility]. Wearing hospital attire sitting in wheelchair.. . Mood is pleasant and cooperative. Cognitive impairment, appears to be confused with disorganized thoughts. Impaired insight and judgment. Speech is WNL, normal volume and rate, friendly. Thought content WNL, no SI/SIB/HI/AVH. Not combative or agitated. Speaking as if he still living with his mother confabulates content on bapt[employer] themes being a good person Diagnostics Vital Signs (24Hr): Vital Signs - 24 hr 02/18/25 08:20 02/18/25 20:00 Temperature 98.2 F 97.5 F Pulse Rate 77 64 Respiratory Rate 16 15 Blood Pressure 117/69 94/53 L Pulse Oximetry 97 100 Oxygen Delivery Method Room Air Room Air BMI result Body Mass Index 32.9 Labs 02/10/25 17:30 02/15/25 08:06 Labs: Laboratory Results - last 48 hr 02/17/25 17:26 ESR 30 H T.pallidum Ab (EIA) Reactive A HIV 1&2 Ab/P24 Ag 4thGn Nonreactive Medications Medications Current Medications Acetaminophen (Acetaminophen 325 Mg Tablet) 650 mg PO Q6H PRN PRN Reason: Pain, Mild (Pain Scale 1-3) Al Hydroxide/Mg Hydroxide (Magnesium Hydrox/Alum Hydrox 30 Ml Oral.Susp) 30 ml PO Q6H PRN PRN Reason: Heartburn/Nausea Apixaban (Apixaban 5 Mg Tablet) 5 mg PO BID [facility] Last Admin: 02/18/25 20:34 Dose: 5 mg Ascorbic Acid (Ascorbic Acid 500 Mg Tablet) 500 mg PO DAILY [facility] Last Admin: 02/18/25 08:24 Dose: 500 mg Bisacodyl (Bisacodyl 10 Mg Supp.Rect) 10 mg [place] DAILY PRN PRN Reason: Constipation Escitalopram Oxalate (Escitalopram Oxalate 10 Mg Tablet) 10 mg PO DAILY [facility] Last Admin: 02/18/25 08:24 Dose: 10 mg Ferrous Sulfate (Ferrous Sulfate 324 Mg Tablet.) 324 mg PO DAILY [facility] Last Admin: 02/18/25 08:24 Dose: 324 mg Finasteride (Finasteride 5 Mg Tablet) 5 mg PO DAILY [facility] Last Admin: 02/18/25 08:25 Dose: 5 mg Gabapentin (Gabapentin 100 Mg Capsule) 100 mg PO BID [facility] Last Admin: 02/18/25 20:34 Dose: 100 mg Hydroxyzine HCl (Hydroxyzine Hcl 25 Mg Tablet) 25 mg PO Q6H PRN PRN Reason: mild anxiety Lorazepam (Lorazepam 0.5 Mg Tablet) 0.5 mg PO TID PRN PRN Reason: Anxiety Last Admin: 02/13/25 13:42 Dose: 0.5 mg Magnesium Hydroxide (Milk Of Magnesia 30 Ml Oral.Susp) 30 ml PO DAILY PRN PRN Reason: Constipation Metoprolol Succinate (Metoprolol Succinate Er 50 Mg Tab.Er.24h) 50 mg PO DAILY [facility]; Protocol Last Admin: 02/18/25 08:24 Dose: 50 mg Mirtazapine (Mirtazapine 15 Mg Tablet) 15 mg PO BEDTIME [facility] Last Admin: 02/18/25 20:34 Dose: 15 mg Nicotine (Nicotine 21 Mg Patch.Td24) 21 mg TRANSDERMA DAILY PRN PRN Reason: nicotine craving Nicotine Polacrilex (Nicotine Polacrilex 2 Mg Gum) 2 mg BUCCAL Q2H PRN PRN Reason: Nicotine Cravings Omeprazole (Omeprazole 40 Mg Capsule.) 40 mg PO DAILY@0630 [facility] Last Admin: 02/18/25 06:22 Dose: 40 mg Pravastatin Sodium (Pravastatin Sodium 40 Mg Tablet) 40 mg PO DAILY [facility] Last Admin: 02/18/25 08:24 Dose: 40 mg Senna (Sennosides 8.6 Mg Tablet) 8.6 mg PO BID PRN PRN Reason: Constipation Sodium Biphosphate/Sodium Phosphate (Sodium Phosphate,[place]-Dibasic 133 Ml Enema) 118 ml [place] DAILY PRN PRN Reason: Constipation Trazodone HCl (Trazodone Hcl 50 Mg Tablet) 50 mg PO BEDTIME MRX1 PRN PRN Reason: Insomnia Last Admin: 02/17/25 20:34 Dose: 50 mg Vitamin D (Cholecalciferol (Vitamin D3) 25 Mcg Tablet) 50 mcg PO DAILY [facility] Last Admin: 02/18/25 08:25 Dose: 50 mcg Allergies Allergies Allergy/AdvReac Type Severity Reaction Status Date / Time No Known Allergies Allergy Verified 02/10/25 16:25 Assessment & Plan Assessment & Plan (1) HTN (hypertension): Status: Acute Code(s): I10 - Essential (primary) hypertension (2) Major neurocognitive disorder due to another medical condition, with agitation: Status: Acute Code(s): F02.811 - Dementia in other diseases classified elsewhere, unspecified severity, with agitation Plan 59-year-old male with past medical history listed below presented with increased aggressive behavior, mental status changes now admitted to inpatient psych for further care and treatment. Patient has had several inpatient hospitalizations and decompensation. Neurocognitive disorder with agitation/Dementia Treatment per psychiatric team Hypertension/hyperlipidemia/history of CVA Continue metoprolol, pravastatin, Eliquis Blood pressure stable BPH Continue finasteride Hidradenitis suppurativa Stable no issues History iron deficiency anemia Stable Continue daily Thank you for allowing me to participate in the care of this patient. Will follow with you, please notify medical provider with any changes in condition or concerns. 02/18/25 Patient with severe hypoxic brain disorder have clear history. Patient not combative agitated no SI or HI. Healthcare proxy invoked Informed Consent: does not understand Reason for continued inpatient stay Substantial Risk for: inability to function and rapid decompensation Time Spent With Patient Time: Total time managing care of this patient today __30__ minutes.
--- NOTE | 2025-02-18 22:37 | HO.HCP ---
Health Care Proxy Invocation Health Care Proxy Declaration: NADIA Rizvi , on the date cited below, have determined that, LIANG NIX , lacks the capacity to make or communicate, informed health care decision. This determination is made in accordance with accepted standards of medical judgment and pursuant to [place] 201[place], the [place] Health Care Proxy Law. The cause, nature, extent and probable duration of the patient's inapacity are described below: Cause:SEVERE HYPOXIC BRAIN DAMAGE Nature:Severe memory impairment unable to take in new information weigh that information and make informed decisions marked impairment in executive function from global brain damage Extent:lacks capacity for any medical decision making Probable Duration of Patient's Incapacity:ongoing permanent
[2025-02-19 08:00] VITALS: BP 121/77; PULSE 74; RESP 18; TEMP 36.8; O2SAT 98
[2025-02-19] MEDS: Metoprolol Succinate ER 50 MG TAB.ER.24H PO (08:07)
[2025-02-19] MEDS: Ferrous Sulfate 324 MG TABLET.DR PO (08:08)
--- NOTE | 2025-02-19 11:59 | HO.PSYCHPN ---
Subjective Subjective Date of Service: 02/19/25 Reason For Visit: agitation, ams Subjective Notes: Conditional Voluntary Healthcare Proxy: Yes (hcp invoked) Medication Compliance: Yes Mental Status Exam Mental Status Exam Narrative: Patient is A+O to self () not to his age, not to current month/date/day/year. Do not know he is in the hospital. Does not know he came from [facility]. Wearing hospital attire sitting in wheelchair.. . Mood is pleasant and cooperative. Cognitive impairment, talking about living with his mother as if Impaired insight and judgment. Speech is WNL, normal volume and rate, friendly. Thought content WNL, no SI/SIB/HI/AVH. Not combative or agitated. 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 Diagnostics Vital Signs (24Hr): Vital Signs - 24 hr 02/18/25 20:00 02/19/25 08:00 Temperature 97.5 F 98.2 F Pulse Rate 64 74 Respiratory Rate 15 18 Blood Pressure 94/53 L 121/77 Pulse Oximetry 100 98 Oxygen Delivery Method Room Air Room Air BMI result Body Mass Index 32.9 Labs 02/10/25 17:30 02/15/25 08:06 Labs: Laboratory Results - last 48 hr 02/17/25 17:26 ESR 30 H T.pallidum Ab (EIA) Reactive A HIV 1&2 Ab/P24 Ag 4thGn Nonreactive Medications Medications Current Medications Acetaminophen (Acetaminophen 325 Mg Tablet) 650 mg PO Q6H PRN PRN Reason: Pain, Mild (Pain Scale 1-3) Al Hydroxide/Mg Hydroxide (Magnesium Hydrox/Alum Hydrox 30 Ml Oral.Susp) 30 ml PO Q6H PRN PRN Reason: Heartburn/Nausea Apixaban (Apixaban 5 Mg Tablet) 5 mg PO BID [facility] Last Admin: 02/19/25 08:07 Dose: 5 mg Ascorbic Acid (Ascorbic Acid 500 Mg Tablet) 500 mg PO DAILY [facility] Last Admin: 02/19/25 08:08 Dose: 500 mg Bisacodyl (Bisacodyl 10 Mg Supp.Rect) 10 mg [place] DAILY PRN PRN Reason: Constipation Escitalopram Oxalate (Escitalopram Oxalate 10 Mg Tablet) 10 mg PO DAILY [facility] Last Admin: 02/19/25 08:08 Dose: 10 mg Ferrous Sulfate (Ferrous Sulfate 324 Mg Tablet.) 324 mg PO DAILY [facility] Last Admin: 02/19/25 08:08 Dose: 324 mg Finasteride (Finasteride 5 Mg Tablet) 5 mg PO DAILY [facility] Last Admin: 02/19/25 08:08 Dose: 5 mg Gabapentin (Gabapentin 100 Mg Capsule) 100 mg PO BID [facility] Last Admin: 02/19/25 08:08 Dose: 100 mg Hydroxyzine HCl (Hydroxyzine Hcl 25 Mg Tablet) 25 mg PO Q6H PRN PRN Reason: mild anxiety Lorazepam (Lorazepam 0.5 Mg Tablet) 0.5 mg PO TID PRN PRN Reason: Anxiety Last Admin: 02/13/25 13:42 Dose: 0.5 mg Magnesium Hydroxide (Milk Of Magnesia 30 Ml Oral.Susp) 30 ml PO DAILY PRN PRN Reason: Constipation Metoprolol Succinate (Metoprolol Succinate Er 50 Mg Tab.Er.24h) 50 mg PO DAILY [facility]; Protocol Last Admin: 02/19/25 08:07 Dose: 50 mg Mirtazapine (Mirtazapine 15 Mg Tablet) 15 mg PO BEDTIME [facility] Last Admin: 02/18/25 20:34 Dose: 15 mg Nicotine (Nicotine 21 Mg Patch.Td24) 21 mg TRANSDERMA DAILY PRN PRN Reason: nicotine craving Nicotine Polacrilex (Nicotine Polacrilex 2 Mg Gum) 2 mg BUCCAL Q2H PRN PRN Reason: Nicotine Cravings Omeprazole (Omeprazole 40 Mg Capsule.) 40 mg PO DAILY@0630 [facility] Last Admin: 02/19/25 06:16 Dose: 40 mg Pravastatin Sodium (Pravastatin Sodium 40 Mg Tablet) 40 mg PO DAILY [facility] Last Admin: 02/19/25 08:07 Dose: 40 mg Senna (Sennosides 8.6 Mg Tablet) 8.6 mg PO BID PRN PRN Reason: Constipation Sodium Biphosphate/Sodium Phosphate (Sodium Phosphate,[place]-Dibasic 133 Ml Enema) 118 ml [place] DAILY PRN PRN Reason: Constipation Trazodone HCl (Trazodone Hcl 50 Mg Tablet) 50 mg PO BEDTIME MRX1 PRN PRN Reason: Insomnia Last Admin: 02/17/25 20:34 Dose: 50 mg Vitamin D (Cholecalciferol (Vitamin D3) 25 Mcg Tablet) 50 mcg PO DAILY [facility] Last Admin: 02/19/25 08:08 Dose: 50 mcg Allergies Allergies Allergy/AdvReac Type Severity Reaction Status Date / Time No Known Allergies Allergy Verified 02/10/25 16:25 Assessment & Plan Assessment & Plan (1) HTN (hypertension): Status: Acute Code(s): I10 - Essential (primary) hypertension (2) Major neurocognitive disorder due to another medical condition, with agitation: Status: Acute Code(s): F02.811 - Dementia in other diseases classified elsewhere, unspecified severity, with agitation Plan 59-year-old male with past medical history listed below presented with increased aggressive behavior, mental status changes now admitted to inpatient psych for further care and treatment. Patient has had several inpatient hospitalizations and decompensation. Neurocognitive disorder with agitation/Dementia Treatment per psychiatric team Hypertension/hyperlipidemia/history of CVA Continue metoprolol, pravastatin, Eliquis Blood pressure stable BPH Continue finasteride Hidradenitis suppurativa Stable no issues History iron deficiency anemia Stable Continue daily Thank you for allowing me to participate in the care of this patient. Will follow with you, please notify medical provider with any changes in condition or concerns. 02/18/25 Patient with severe hypoxic brain disorder have clear history. Patient not combative agitated no SI or HI. Healthcare proxy invoked Reason for continued inpatient stay Substantial Risk for: rapid decompensation Time Spent With Patient Time: Total time managing care of this patient today ____ minutes.
[2025-02-19 20:00] VITALS: BP 119/69; PULSE 69; RESP 16; TEMP 37.1; O2SAT 97
[2025-02-20 08:00] VITALS: BP 120/71; PULSE 69; RESP 16; TEMP 36.6; O2SAT 98
[2025-02-20] MEDS: Ferrous Sulfate 324 MG TABLET.DR PO (08:30)
[2025-02-20] MEDS: Metoprolol Succinate ER 50 MG TAB.ER.24H PO (08:30)
[2025-02-20 20:00] VITALS: BP 109/58; PULSE 66; RESP 16; TEMP 36.7
--- NOTE | 2025-02-20 22:26 | P.DS_ITS ---
DS: Providers Provider Date of Service: 02/21/25 Date of admission: 02/14/25 14:49 Date of discharge: 02/21/25 Primary care physician: Unknown Physician Admitting clinician: Joan Santiago Attending physician on admission: Kyler Samayoa Consults: see er note and hospitalist eamon in summary Attending physician on discharge: Kyler Samayoa Discharging clinician: Kyler Samayoa DS: Diagnosis Discharge Diagnosis (1) Major neurocognitive disorder due to another medical condition, with agitation: Status: Acute (2) HTN (hypertension): Status: Acute DS: Medications Discharge Medications Home Medications: Home Medications ?Medication ?Instructions ?Recorded ?Confirmed finasteride 5 mg tablet 5 mg PO DAILY 05/18/2302/11 apixaban 5 mg tablet (Eliquis) 5 mg PO BID 02/11/25 ascorbic acid (vitamin C) 500 mg 500 mg PO DAILY 02/1102/11/25 chewable tablet (Vitamin C) bisacodyl 10 mg rectal suppository 10 mg ND DAILY PRN Constipation 02/11/25 02/11/25 cholecalciferol (vitamin D3) 25 50 mcg PO DAILY 02/11/25 mcg (1,000 unit) tablet (Vitamin D3) escitalopram oxalate 10 mg tablet 10 mg PO DAILY 02/1102/11/25 (Lexapro) ferrous sulfate 325 mg (65 mg 325 mg PO DAILY 02/11/25 02/11/25 iron) tablet gabapentin 100 mg capsule 100 mg PO BID 02/11/2502/11 lorazepam 0.5 mg tablet (Ativan) 0.5 mg PO TID PRN Anx iety 02/11/25 02/11/25 magnesium hydroxide 400 mg/5 mL 30 ml PO DAILY PRN Con stipation 02/11/25 02/11/25 oral suspension (Milk of Magnesia) metoprolol succinate 50 mg 50 mg PO DAILY 02/11/25 tablet,extended release 24 hr mirtazapine 15 mg tablet 15 mg PO BEDTIME 02/11/25 omeprazole 40 mg capsule,delayed 40 mg PO DAILY@2000 1 02/11/25 release pravastatin 40 mg tablet 40 mg PO DAILY 02/11/2501/23 sennosides 8.6 mg tablet (senna) 8.6 mg PO BID Constip ation 02/11/25 02/11/25 sodium phosphates 19 gram-7 118 ml ND DAILY PRN Terryi pation 02/11/25 02/11/25 gram/118 mL enema (Fleet Enema) Previous Rx's ?Medication ?Instructions ?Recorded acetaminophen 325 mg tablet 650 mg (2 x 325 mg) PO Q6H PRN 05/23/23 Pain, Mild (Pain Scale 1-3) 30 days #42 tabs Mental Status Exam Mental Status Exam Narrative: Patient is A+O to self () not to his age, not to current month/date/day/year. Do not know he is in the hospital. Does not know he came from [facility]. Wearing hospital attire sitting in wheelchair.. . Mood is pleasant and cooperative. Cognitive impairment, appears to be confused with disorganized thoughts. Impaired insight and judgment. Speech is WNL, normal volume and rate, friendly. Thought content WNL, no SI/SIB/HI/AVH. Not combative or agitated. Speaking as if he still living with his mother confabulates content on mandaeism themes being a good person Data Data Completed and Pending Completed studies during hospitalization [Text1]: 02/15/25 02/17/25 08:06 17:26 ESR 30 H Sodium 141 Potassium 4.3 Chloride 107 Carbon Dioxide 27 Anion Gap 11 L BUN 24 H Creatinine 1.25 Estim Creat Clear Calc 69.9 Estimated GFR 59 Random Glucose 91 Estimat Average Glucose 105 Hemoglobin A1c % 5.3 Calcium 10.0 Total Bilirubin 0.3 AST 29 ALT 23 Alkaline Phosphatase 86 Total Protein 8.4 H Albumin 4.4 Triglycerides 157 H Cholesterol 165 LDL Cholesterol, Calc 94 HDL Cholesterol 40 L Vitamin B12 627 Folate 8.5 TSH 0.39 Free T4 1.11 EMY Screen Pending EMY Titer Pending EMY Titer 2 Pending EMY Titer 3 Pending EMY Pattern Pending EMY Pattern 2 Pending EMY Pattern 3 Pending RPR Pending T.pallidum Particle Agg Pending T.pallidum Ab (EIA) Reactive A HIV 1&2 Ab/P24 Ag 4thGn Nonreactive DS: Summary Hospital Course Hospital Course: MEDICAL EVALUATION IN ER [address] [address] Emergency Department Note ISigned Patient: Ok Fuller MR#: [id number] : 1965 Acct:[id number] Age/Sex: 59 / M ADM Date: 02/14/25 Loc: [facility] 186-1 Date of Service: 02/14/[address]: Joan Santiago FAMILY SUPPORT COORDINATOR cc: Physician,Unknown ~ HPI - Altered Mental Status General Chief Complaint: Altered Mental Status Stated Complaint: psych,aggressive,violent to staff @snf Time Seen by Provider: 02/10/25 16:13 History of Present Illness HPI narrative: Patient is a 59-year-old male currently lives in [facility]. Currently has a history of CVA. Currently patient is on Eliquis. Question DVT in the past. On psych meds. Medication listed include Lexapro, gabapentin, mirtazapine. Question the patient has been taking medications. Today patient got extremely agitated. Was sent in for further evaluation. Currently not on blood thinners. Patient on arrival has no complaints. Oriented to self. Not to place or time. Patient unable to give details. No trauma reported by prison Related Data Home Medications Medication Instructions Recorded Confirmed finasteride 5 mg tablet 5 mg PO DAILY 05/18/23 02/11/25 apixaban 5 mg tablet (Eliquis) 5 mg PO BID 02/11/25 02/11/25 ascorbic acid (vitamin C) 500 mg 500 mg PO DAILY 02/11/25 02/11/25 chewable tablet (Vitamin C) bisacodyl 10 mg rectal suppository 10 mg ND DAILY PRN Constipation 02/11/25 02/11/25 cholecalciferol (vitamin D3) 25 50 mcg PO DAILY 02/11/25 02/11/25 mcg (1,000 unit) tablet (Vitamin D3) escitalopram oxalate 10 mg tablet 10 mg PO DAILY 02/11/25 02/11/25 (Lexapro) ferrous sulfate 325 mg (65 mg 325 mg PO DAILY 02/11/25 02/11/25 iron) tablet gabapentin 100 mg capsule 100 mg PO BID 02/11/25 02/11/25 lorazepam 0.5 mg tablet (Ativan) 0.5 mg PO TID PRN Anxiety 02/11/25 02/11/25 magnesium hydroxide 400 mg/5 mL 30 ml PO DAILY PRN Constipation 02/11/25 02/11/25 oral suspension (Milk of Magnesia) metoprolol succinate 50 mg 50 mg PO DAILY 02/11/25 02/11/25 tablet,extended release 24 hr mirtazapine 15 mg tablet 15 mg PO BEDTIME 02/11/25 02/11/25 omeprazole 40 mg capsule,delayed 40 mg PO DAILY@199902/11/25 02/11/25 release pravastatin 40 mg tablet 40 mg PO DAILY 02/11/25 02/11/25 sennosides 8.6 mg tablet (senna) 8.6 mg PO BID Constipation 02/11/25 02/11/25 sodium phosphates 19 gram-7 118 ml ND DAILY PRN Constipation 02/11/25 02/11/25 gram/118 mL enema (Fleet Enema) Previous Rx's Medication Instructions Recorded acetaminophen 325 mg tablet 650 mg (2 x 325 mg) PO Q6H PRN 05/23/23 Pain, Mild (Pain Scale 1-3) 30 days #42 tabs Allergies Allergy/AdvReac Type Severity Reaction Status Date / Time No Known Allergies Allergy Verified 02/10/25 16:25 Review of Systems Review of Systems: Patient unable to give detailed review of system has no specific complaints Yes all other systems are reviewed and are negative PMFSH Past Medical History Medical History History of infection of skin or subcutaneous tissue BPH (benign prostatic hyperplasia) Arthritis Hx of transfusion of packed red blood cells Anemia Sleep apnea Elevated cholesterol HTN (hypertension) Surgical History H/O colonoscopy History of ankle surgery Social History Social History Household Members: Spouse Housing: House Are you a primary patient care secretary to a significant other at home: No Do you presently have visiting nurse or other home services: No Patient Tobacco Use Status: Former Tobacco user Tobacco use type: Cigarette Smoked in Last 30 Days: No Use of substances other than those prescribed or required for medical reasons: No Substance Use Type: Marijuana Advance Directives: Yes Advance Directives on File: Yes Advance Directives Date on File: 02/03/25 service: No 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al status: disabled 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 Oriented X1. No acute distress. Eyes: Pupils equal, round and reactive to light. ENT: Pharynx normal. Neck: Normal inspection. Neck supple. No lymph nodes noted. No crepitus CVS: Normal heart rate and rhythm. Pulses normal. Normal S1 and S2 Respiratory: No respiratory distress. Breath sounds normal. No Wheezing. No rales Abdomen: Soft and nontender. No rigidity. No distention. good BS x4 Skin: Skin warm and dry. Normal skin color. Normal skin turgor. Extremities: No lower extremity edema. Neurovascular intact to all extremities. No Lacerations. No Rash Neuro: Oriented X 1. No motor deficit. No sensory deficit. Moving all extermities. No slurred speech. Cranial nerves grossly intact Vital Signs: Vital Signs - 24 hr 02/13/25 19:05 02/13/25 20:58 02/13/25 22:00 Temperature 97.8 F 98.3 F Pulse Rate 109 H 95 89 Respiratory Rate 18 16 16 Blood Pressure 129/80 133/85 109/71 Pulse Oximetry 97 98 96 Oxygen Delivery Method Room Air Room Air Room Air 02/14/25 08:34 02/14/25 08:34 02/14/25 10:55 Temperature 98.1 F Pulse Rate 98 98 77 Respiratory Rate 18 16 Blood Pressure 123/84 123/84 108/70 Pulse Oximetry 98 98 Oxygen Delivery Method Room Air Room Air BMI result Body Mass Index 32.9 Course Reevaluation(s) Reevaluation #1: Physician observation started at 1903 on 02/10. Patient placed in physician observation because patient is awaiting CARE team evaluation and psychiatry evaluation for the possible need of inpatient psych admission. At the time observation was started patient's vital signs were stable. He is calm this morning. Med rec is pending, he reportedly has been off of his medications. His UTox was negative. ETOH level 11. Patient is alert and oriented. Neuro exam is non-focal. CV: RRR and lungs are clear. Will continue to monitor. Reevaluation #2: Time: 07:44 Date: 02/12/25 Provider: Henrietta Lopez, DO Patient in physician observation for psychiatric evaluation. No acute events reported overnight. No current complaints. VS stable. Patient is pending disposition by CARE team. Will continue to monitor. Time: 06:05 Date: 02/13/25 Provider: Henrietta Lopez DO Patient in physician observation for psychiatric evaluation. No acute events reported overnight. No current complaints. VS stable. Pending CARE team evaluation. Will continue to monitor. Time: 06:05 Date: 02/14/25 Provider: Henrietta Lopez DO Patient in physician observation for psychiatric evaluation. No acute events reported overnight. No current complaints. VS stable. Pending CARE team evaluation. Will continue to monitor. physician observation ended, he is to be admitted inpatient. ended at 333pm Henrietta Lopez DO 02/14/25 1533 Medications Administered Generic Name Dose Route Start Last Admin Trade Name Freq PRN Reason Stop Dose Admin Apixaban 5 mg 02/11/25 11:00 02/14/25 08:37 Apixaban 5 Mg Tablet PO 5 mg BID GO Administration Ascorbic Acid 500 mg 02/11/25 11:00 02/14/25 08:38 Ascorbic Acid 500 Mg Tablet PO 500 mg DAILY GO Administration Escitalopram Oxalate 10 mg 02/11/25 11:15 02/14/25 08:37 Escitalopram Oxalate 10 Mg Tablet PO 10 mg DAILY GO Administration Ferrous Sulfate 324 mg 02/11/25 11:30 02/14/25 08:38 Ferrous Sulfate 324 Mg Tablet. PO 324 mg DAILY GO Administration Finasteride 5 mg 02/11/25 11:15 02/14/25 11:03 Finasteride 5 Mg Tablet PO 5 mg DAILY GO Administration Gabapentin 100 mg 02/11/25 11:15 02/14/25 08:36 Gabapentin 100 Mg Capsule PO 100 mg BID GO Administration Lorazepam 0.5 mg 02/11/25 11:00 02/13/25 13:42 Lorazepam 0.5 Mg Tablet PO 0.5 mg TID PRN Administration Anxiety Metoprolol Succinate 50 mg 02/11/25 11:15 02/14/25 08:34 Metoprolol Succinate Er 50 Mg Tab.Er.24h PO 50 mg DAILY GO Administration Protocol Mirtazapine 15 mg 02/11/25 21:00 02/13/25 20:56 Mirtazapine 15 Mg Tablet PO 15 mg BEDTIME GO Administration Omeprazole 40 mg 02/11/25 11:15 02/14/25 08:35 Omeprazole 40 Mg Capsule. PO 40 mg DAILY@0630 GO Administration Pravastatin Sodium 40 mg 02/11/25 11:15 02/14/25 08:35 Pravastatin Sodium 40 Mg Tablet PO 40 mg DAILY GO Administration Vitamin D 50 mcg 02/11/25 11:00 02/14/25 08:36 Cholecalciferol (Vitamin D3) 25 Mcg Tablet PO 50 mcg DAILY GO Administration Discontinued Medications Generic Name Dose Route Start Last Admin Trade Name Radha PRN Reason Stop Dose Admin Acetaminophen 975 mg 02/11/25 11:14 02/11/25 11:20 Acetaminophen 325 Mg Tablet PO 02/11/25 11:15 975 mg ONCE ONE Administration Medical Decision Making Medical Decision Making MDM Narrative: Will contact prison about the medication he is actually on. Care team was consulted labs were ordered. Tox screen. Patient in no acute distress. Will monitor. Lab Data 02/10/25 17:30 document embedded image 02/10/25 17:30 document embedded image Labs: Lab Results 02/10/25 02/11/25 Range/Units 17:30 01:33 WBC 8.8 (4.8-10.8) X10*3/uL RBC 4.43 L (4.60-5.80) X10*6/uL Hgb 12.2 L (14.0-18.0) g/dl Hct 37.7 L (42.0-52.0) % MCV 85.1 (80.0-98.0) fL MCH 27.5 (27.0-33.0) pg MCHC 32.4 (31.0-36.0) g/dl RDW 14.8 (11.0-16.0) % Plt Count 167 (160-400) X10*3/uL MPV 11.7 (9.4-12.4) fL Immature Gran % (Auto) 0.3 (0.0-0.4) % Neut % (Auto) 64.1 (45-73) % Lymph % (Auto) 25.2 (20-40) % Hettinger % (Auto) 7.9 (2-11) % Eos % (Auto) 2.2 (0-4) % Baso % (Auto) 0.3 (0-2) % Lymph # (Auto) 2.2 (1.2-4.9) X10*3/uL Hettinger # (Auto) 0.7 (0.1-1.2) X10*3/uL Eos # (Auto) 0.2 (0.0-0.4) X10*3/uL Baso # (Auto) 0.0 (0.0-0.2) X10*3/uL Abs Immat Gran (auto) 0.03 (0.00-0.03) X10*3/uL Absolute Neuts (auto) 5.6 (2.0-8.3) x10*3/uL Absolute Nucleated RBC 0.000 (0.0-0.012) X10*3/uL Nucleated RBC % (auto) 0.0 (0.0-0.2) /100WBC Sodium 140 (135-145) mmol/L Potassium 4.3 (3.3-5.1) mmol/L Chloride 106 (96-108) mmol/L Carbon Dioxide 25 (22-29) mmol/L Anion Gap 13 (12-20) BUN 24 H (9-16) mg/dL Creatinine 1.13 (0.5-1.4) mg/dL Estim Creat Clear Calc 77.4 Estimated GFR > 60 Random Glucose 109 (60-115) mg/dL Calcium 9.7 (8.4-10.2) mg/dL Total Bilirubin 0.2 (0.0-1.0) mg/dL Direct Bilirubin < 0.2 (0.0-0.5) mg/dL AST 12 (5-37) U/L ALT 17 (0-40) U/L Alkaline Phosphatase 82 (39-117) U/L Total Protein 7.8 (6.5-8.0) g/dL Albumin 3.9 (3.5-5.0) g/dL TSH 0.46 (0.32-4.0) uIU/mL Urine Color Yellow Urine Appearance Clear Urine pH 6.0 (5.0-9.0) Ur Specific Valdez 1.020 (1.005-1.025) Urine Protein Negative (Neg-Trace) mg/dL Urine Glucose (UA) Negative (Negative) mg/dL Urine Ketones Negative (Negative) mg/dL Urine Blood Negative (Negative) Urine Nitrite Negative (Negative) Ur Leukocyte Esterase Trace H (Negative) Urine RBC 0-2 (0-2) /HPF Urine WBC 0-5 (0-5) /HPF Ur Squamous Epith Cells 0-2 (0-2) /HPF Urine Bacteria None Seen (None Seen) Hyaline Casts 0-2 (0-2) /LPF Urine Opiates Screen Not Detected (Not Detect) Ur Buprenorphine Scrn Not Detected (Not Detect) ng/mL Ur Oxycodone Screen Not Detected (Not Detect) ng/mL Urine Methadone Screen Not Detected (Not Detect) ng/mL Urine Fentanyl Screen Not Detected (Not Detect) Ur Barbiturates Screen Not Detected (Not Detect) Ur Phencyclidine Scrn Not Detected (Not Detect) Ur Amphetamines Screen Not Detected (Not Detect) U Benzodiazepines Scrn Not Detected (Not Detect) Urine Cocaine Screen Not Detected (Not Detect) U Marijuana (THC) Screen Not Detected (Not Detect) Ethyl Alcohol 11 mg/dL Discharge Plan Discharge Clinical Impression: Major neurocognitive disorder due to another medical condition, with agitation Patient Disposition: Admitted As Inpatient Interventions: Admission Worksheet (ED) Last Done: 02/14/25 15:10 Dictated By: Codie Petty MD Signed By: <Electronically signed by Codie Petty MD> 02/16/25 0050 <Electronically signed by Amanda Brandon> 02/14/25 1707 <Electronically signed by Henrietta Lopez DO> 02/14/25 1533 c: Jazlyn Dorado DNP~ History of Present Illness Data of Consult Service Date: 02/18/25 Primary Care Provider: Unknown Physician HPI 59-year-old male with past medical history of CVA, HTN, BPH, HLD, arthritis, sleep apnea, hidradenitis suppurativa and dementia who resides at [facility], presented to the ED via EMS with increased confusion, worsening memory agitated behavior. His U tox was negative, EtOH level 11. No leukocytosis, mild anemia. No electrolyte imbalances, renal function stable, urinalysis without infection. On exam he has no complaints. Oriented to self. Not to place or time. No agitation. He is listening to music which he reports helps calm his mood. Review of Systems Review of Systems: Denies any shortness of breath, chest pain, headaches, dysuria, abdominal pain. [facility] Medical History (Updated 02/18/25 @ 13:41 by Jazlyn Dorado DNP) History of infection of skin or subcutaneous tissue BPH (benign prostatic hyperplasia) Arthritis Hx of transfusion of packed red blood cells Anemia Sleep apnea Elevated cholesterol HTN (hypertension) Surgical History H/O colonoscopy History of ankle surgery Social History Household Members: Other Household Members Other:: Nursing facility Housing: Care Home Are you a primary patient care secretary to a significant other at home: No Comment: 5 minute checks Patient Tobacco Use Status: Former Tobacco user Tobacco use type: Cigarette Smoked in Last 30 Days: No e-Cigarette/Vaping Use: Never Used Patient Interested in Nicotine Replacement: No Patient Given Instructions on How to Stop Smoking: No Second Hand Smoke Exposure: No Use of substances other than those prescribed or required for medical reasons: No Substance Use Type: Marijuana Currently Displaying Signs/Symptoms of Drug Intoxication Withdrawal: No Have you been hit, kicked, punched, or otherwise hurt by someone within the past year? If so, by whom?: No Do you feel safe in your current relationship?: Yes Is there a partner from a previous relationship who is making you feel unsafe now?: No Are you made to feel afraid or neglected: No Advance Directives: Yes Advance Directives Information Provided: No Advance Directives on File: Yes Advance Directives Date on File: 02/03/25 Do you have thoughts of harming others: None Do you have a plan to hurt others: No Plan Recently lost weight without trying: No Eating poorly because of decreased appetite: No Nutrition Risks: No Nutritional Risk Poor oral hygiene: No service: No 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al status: disabled 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 Sexual orientation: Straight/Heterosexual Meds Allergies Allergy/AdvReac Type Severity Reaction Status Date / Time No Known Allergies Allergy Verified 02/10/25 16:25 Active Medications: Current Medications Acetaminophen (Acetaminophen 325 Mg Tablet) 650 mg PO Q6H PRN PRN Reason: Pain, Mild (Pain Scale 1-3) Al Hydroxide/Mg Hydroxide (Magnesium Hydrox/Alum Hydrox 30 Ml Oral.Susp) 30 ml PO Q6H PRN PRN Reason: Heartburn/Nausea Apixaban (Apixaban 5 Mg Tablet) 5 mg PO BID [facility] Last Admin: 02/18/25 08:24 Dose: 5 mg Ascorbic Acid (Ascorbic Acid 500 Mg Tablet) 500 mg PO DAILY GO Last Admin: 02/18/25 08:24 Dose: 500 mg Bisacodyl (Bisacodyl 10 Mg Supp.Rect) 10 mg ND DAILY PRN PRN Reason: Constipation Escitalopram Oxalate (Escitalopram Oxalate 10 Mg Tablet) 10 mg PO DAILY [facility] Last Admin: 02/18/25 08:24 Dose: 10 mg Ferrous Sulfate (Ferrous Sulfate 324 Mg Tablet.) 324 mg PO DAILY [facility] Last Admin: 02/18/25 08:24 Dose: 324 mg Finasteride (Finasteride 5 Mg Tablet) 5 mg PO DAILY [facility] Last Admin: 02/18/25 08:25 Dose: 5 mg Gabapentin (Gabapentin 100 Mg Capsule) 100 mg PO BID [facility] Last Admin: 02/18/25 08:24 Dose: 100 mg Hydroxyzine HCl (Hydroxyzine Hcl 25 Mg Tablet) 25 mg PO Q6H PRN PRN Reason: mild anxiety Lorazepam (Lorazepam 0.5 Mg Tablet) 0.5 mg PO TID PRN PRN Reason: Anxiety Last Admin: 02/13/25 13:42 Dose: 0.5 mg Magnesium Hydroxide (Milk Of Magnesia 30 Ml Oral.Susp) 30 ml PO DAILY PRN PRN Reason: Constipation Metoprolol Succinate (Metoprolol Succinate Er 50 Mg Tab.Er.24h) 50 mg PO DAILY [facility]; Protocol Last Admin: 02/18/25 08:24 Dose: 50 mg Mirtazapine (Mirtazapine 15 Mg Tablet) 15 mg PO BEDTIME [facility] Last Admin: 02/17/25 20:34 Dose: 15 mg Nicotine (Nicotine 21 Mg Patch.Td24) 21 mg TRANSDERMA DAILY PRN PRN Reason: nicotine craving Nicotine Polacrilex (Nicotine Polacrilex 2 Mg Gum) 2 mg BUCCAL Q2H PRN PRN Reason: Nicotine Cravings Omeprazole (Omeprazole 40 Mg Capsule.) 40 mg PO DAILY@0630 [facility] Last Admin: 02/18/25 06:22 Dose: 40 mg Pravastatin Sodium (Pravastatin Sodium 40 Mg Tablet) 40 mg PO DAILY [facility] Last Admin: 02/18/25 08:24 Dose: 40 mg Senna (Sennosides 8.6 Mg Tablet) 8.6 mg PO BID PRN PRN Reason: Constipation Sodium Biphosphate/Sodium Phosphate (Sodium Phosphate,Hettinger-Dibasic 133 Ml Enema) 118 ml ND DAILY PRN PRN Reason: Constipation Trazodone HCl (Trazodone Hcl 50 Mg Tablet) 50 mg PO BEDTIME MRX1 PRN PRN Reason: Insomnia Last Admin: 02/17/25 20:34 Dose: 50 mg Vitamin D (Cholecalciferol (Vitamin D3) 25 Mcg Tablet) 50 mcg PO DAILY GO Last Admin: 02/18/25 08:25 Dose: 50 mcg Home Medications Medication Instructions Recorded Confirmed Last Taken Type finasteride 5 mg tablet 5 mg PO DAILY 05/18/23 02/11/25 Unknown History apixaban 5 mg tablet (Eliquis) 5 mg PO BID 02/11/25 02/11/25 Unknown History ascorbic acid (vitamin C) 500 mg 500 mg PO DAILY 02/11/25 02/11/25 Unknown History chewable tablet (Vitamin C) bisacodyl 10 mg rectal suppository 10 mg ND DAILY PRN Constipation 02/11/25 02/11/25 Unknown History cholecalciferol (vitamin D3) 25 50 mcg PO DAILY 02/11/25 02/11/25 Unknown History mcg (1,000 unit) tablet (Vitamin D3) escitalopram oxalate 10 mg tablet 10 mg PO DAILY 02/11/25 02/11/25 Unknown History (Lexapro) ferrous sulfate 325 mg (65 mg 325 mg PO DAILY 02/11/25 02/11/25 Unknown History iron) tablet gabapentin 100 mg capsule 100 mg PO BID 02/11/25 02/11/25 Unknown History lorazepam 0.5 mg tablet (Ativan) 0.5 mg PO TID PRN Anxiety 02/11/25 02/11/25 Unknown History magnesium hydroxide 400 mg/5 mL 30 ml PO DAILY PRN Constipation 02/11/25 02/11/25 Unknown History oral suspension (Milk of Magnesia) metoprolol succinate 50 mg 50 mg PO DAILY 02/11/25 02/11/25 Unknown History tablet,extended release 24 hr mirtazapine 15 mg tablet 15 mg PO BEDTIME 02/11/25 02/11/25 Unknown History omeprazole 40 mg capsule,delayed 40 mg PO DAILY@199902/11/25 02/11/25 Unknown History release pravastatin 40 mg tablet 40 mg PO DAILY 02/11/25 02/11/25 Unknown History sennosides 8.6 mg tablet (senna) 8.6 mg PO BID Constipation 02/11/25 02/11/25 Unknown History sodium phosphates 19 gram-7 118 ml ND DAILY PRN Constipation 02/11/25 02/11/25 Unknown History gram/118 mL enema (Fleet Enema) Physical Exam Vital Signs and Narrative: Vital Signs: Last Vital Signs Temp 98.2 F 02/18/25 08:20 Pulse 77 02/18/25 08:20 Resp 16 02/18/25 08:20 BP 117/69 02/18/25 08:20 Pulse Ox 97 02/18/25 08:20 O2 Del Method Room Air 02/18/25 08:20 BMI result Body Mass Index 32.9 Alert and oriented X1, calm and cooperative. Answers simple questions. Neuro: CN II-X11 intact, no deficits, visual acuity intact EYES: PERRLA, EOM intact ENT: Hearing intact, MMM Cardiac: S1 S2 RRR, No ectopy Pulmonary: lungs clear to auscultation, No increased WOB. Abdominal: BS active in all 4 quadrants, no guarding or tenderness MSK: Strength 5/5 upper and lower extremities. WC level. : Deferred Extremities: No edema in lower extremities Psych: Mood stable, Quiet and cooperative. Skin: Warm and dry, Intact Results Labs 02/10/25 17:30 document embedded image 02/15/25 08:06 document embedded image Labs: Laboratory Results - last 24 hr 02/17/25 17:26 ESR 30 H T.pallidum Ab (EIA) Reactive A HIV 1&2 Ab/P24 Ag 4thGn Nonreactive Assessment and Plan (1) HTN (hypertension): Status: Acute Plan 59-year-old male with past medical history listed below presented with increased aggressive behavior, mental status changes now admitted to inpatient psych for further care and treatment. Patient has had several inpatient hospitalizations and decompensation. Neurocognitive disorder with agitation/Dementia Treatment per psychiatric team Hypertension/hyperlipidemia/history of CVA Continue metoprolol, pravastatin, Eliquis Blood pressure stable BPH Continue finasteride Hidradenitis suppurativa Stable no issues History iron deficiency anemia Stable Continue daily Thank you for allowing me to participate in the care of this patient. Will follow with you, please notify medical provider with any changes in condition or concerns. Dictated By: Jazlyn Dorado DNP Signed By: <Electronically signed by Jazlyn Dorado> 02/18/25 1430 DD/ 1025 TD/TT: 02/18/25 1025 Seed Cleaning Manager: PSYCHIATRIC HOSPITAL COURSE cc: Kyler Samayoa MD; Joan Santiago FAMILY SUPPORT COORDINATOR~ HPI Date of Service: 02/14/25 Chief Complaint: agitation, ams Sources of Information: patient interviewed, chart reviewed and crisis/core team assessment reviewed HPI Subjective Notes: Section 12B Narrative: HPI done by Dr Cline on 02/11/25 during consultation. Mr. 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 On arrival to the ED, he was confused, believed Keon Elizalde is the president. Stated he didn't know why he was agitated and denied SI or violent ideation. Per collateral gathered by CARE Team from the SNF, pt has not been the same since one week ago after having a panic attack, associated with BP elevation, crying and not responding. He was sent to the ED and reportedly medically cleared. Per CARE assessment note by Sena Restrepo [facility]- - pt became more agitated and was not redirectable, yelling, yelling, screaming and crying and became combative when given lorazepam at the SNF yesterday -He has reportedly had significant short-term memory impairment x [address] head w/o contrast [facility] showed scattered subcortical and periventricular hypoattenuation, likely c/w chronic small vessel disease; parenchymal volume loss with prominence of ventricles and CSF space. There were no acute changes. UA was unremarkable. U tox neg Pt's (Talia) was at bedside and provided some of his history. She reports that pt has been unable to walk since his L leg was paralyzed in Apr 2023. She denies that pt had a stroke. It sounds like the mobility issues started after a fall in Apr 2023. He's been in and out of the hospital and rehab facilities since then. He reportedly had delusional episodes and outbursts during a 3 month stay at a rehab facility in [place]. He was seen by a psychiatrist at the rehab, who started him on prn lorazepam 0.5 mg tid, which may have helped somewhat with his agitation but he kept having delusions . When asked to describe the delusions, she states that pt would ask Why do I have to be here? (in the rehab/SNF) and You don't want me around anymore . 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 She is not able to manage him safely at home since he can't walk. Per Talia, pt has had some issues w/ confusion and disorientation since Apr 2023 but she feels like his memory has been significantly worse more recently. He asks about his mom, who 5 yrs ago, doesn't know where he lives. Talia notes that pt has been seeing both of their relatives since Apr 2023, which is not particularly bothersome to him. She reports that he gave perfect physical descriptions of them without ever having met them. He has had episodes of confusion/agitation at night, worrying that people were going to harm him and has yelled during the episodes. On S1: meet with patient in assigned room, we tried to get him out of bed to his for asssement but it seemed too much staff involved, therefore he agrees to have assessment at bedside. Reason for being brought to hospital is my foot . Patient states that his foot has been that way for a while. He is not sure if it s broken. He is not sure since when his foot has problem. He says he has the aircast on for a while. Report he lives at home with his wilfe. He has two adult children and they are staying with their grandfather. He says his home is in [place], he does not remember if he came to [facility] from home or from other facility. He denies mental health or substance use in family. Denies any substance use himself except for MJ which he already tried to cut down from MJ 6-7 years ago. Denies trauma hx. He does not know if he has OP Psychiatrist/therapist or PCP. Denies SI/SIB/HI/AVH. Denies suicide hx or hx of suicide attempts. Denies problems with sleep or appetite. Denies depresion and anxiety. Mood is pretty good . Report pain on foot and take medication for it but do not know what he was taking. Report he manages his medication but do not remember names of medications. Patient is A+O to self () not to his age, think he is 35 year-old, not to current month/date/day/year. Do not know he is in the hospital. Do not know he came from [facility]. Wearing hospital attire without bottom, observed having pull-up on. 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 Mood is pleasant and cooperative. Cognitive impairment, appears to be confused with disorganized thoughts. Impaired insight and judgment. He ambulate using WC. Speech is WNL, normal volume and rate, friendly. Thought content WNL, no SI/SIB/HI/AVH. Do not make any delusional or paranoid statement. Plan to continue with current home meds. Will place consult for PT evaluation. Collateral with family. Past Psychiatric History: Pt denies having any outpatient psychiatric provider or h/o IPLOC, PHP or respite [facility] [phone] Psychotropic meds listed on his [facility] record include escitalopram 10 mg qd, gabapentin 100 mg bid (rx'd for neuropathic pain), lorazepam .5 mg tid, and mirtazapine 15 mg qhs. Neither pt nor his know who rx'd the escitalopram or mirtazapine or whether he's been taking it lately. Medical Evaluation Reviewed: Yes [facility] Medical History History of infection of skin or subcutaneous tissue BPH (benign prostatic hyperplasia) Arthritis Hx of transfusion of packed red blood cells Anemia Sleep apnea Elevated cholesterol HTN (hypertension) Surgical History H/O colonoscopy History of ankle surgery Family History: Unknown. Patient denies family hx of mental health or substance use Social History: B/R in [place] by mom. Currently residing at [facility] Substance History: Denies. Report hx of MJ use. Trauma History: Pt denies Diagnostics Vital Signs (24Hr): Vital Signs - 24 hr 02/13/25 20:58 02/13/25 22:00 02/14/25 08:34 Temperature 97.8 F 98.3 F Pulse Rate 95 89 98 Respiratory Rate 16 16 18 Blood Pressure 133/85 109/71 123/84 Pulse Oximetry 98 96 98 Oxygen Delivery Method Room Air Room Air Room Air 02/14/25 08:34 02/14/25 10:55 02/14/25 15:50 Temperature 98.1 F 98.5 F Pulse Rate 98 77 79 Respiratory Rate 16 20 Blood Pressure 123/84 108/70 126/80 Pulse Oximetry 98 99 Oxygen Delivery Method Room Air Room Air BMI result Body Mass Index 32.9 Labs 02/10/25 17:30 document embedded image 02/10/25 17:30 document embedded image Meds/Allergies Meds Home Medications Medication Instructions Recorded Confirmed Type finasteride 5 mg tablet 5 mg PO DAILY 05/18/23 02/11/25 History apixaban 5 mg tablet (Eliquis) 5 mg PO BID 02/11/25 02/11/25 History ascorbic acid (vitamin C) 500 mg 500 mg PO DAILY 02/11/25 02/11/25 History chewable tablet (Vitamin C) bisacodyl 10 mg rectal suppository 10 mg ND DAILY PRN Constipation 02/11/25 02/11/25 History cholecalciferol (vitamin D3) 25 50 mcg PO DAILY 02/11/25 02/11/25 History mcg (1,000 unit) tablet (Vitamin D3) escitalopram oxalate 10 mg tablet 10 mg PO DAILY 02/11/25 02/11/25 History (Lexapro) ferrous sulfate 325 mg (65 mg 325 mg PO DAILY 02/11/25 02/11/25 History iron) tablet gabapentin 100 mg capsule 100 mg PO BID 02/11/25 02/11/25 History lorazepam 0.5 mg tablet (Ativan) 0.5 mg PO TID PRN Anxiety 02/11/25 02/11/25 History magnesium hydroxide 400 mg/5 mL 30 ml PO DAILY PRN Constipation 02/11/25 02/11/25 History oral suspension (Milk of Magnesia) metoprolol succinate 50 mg 50 mg PO DAILY 02/11/25 02/11/25 History tablet,extended release 24 hr mirtazapine 15 mg tablet 15 mg PO BEDTIME 02/11/25 02/11/25 History omeprazole 40 mg capsule,delayed 40 mg PO DAILY@2000 02/11/25 02/11/25 History release pravastatin 40 mg tablet 40 mg PO DAILY 02/11/25 02/11/25 History sennosides 8.6 mg tablet (senna) 8.6 mg PO BID Constipation 02/11/25 02/11/25 History sodium phosphates 19 gram-7 118 ml ND DAILY PRN Constipation 02/11/25 02/11/25 History gram/118 mL enema (Fleet Enema) Allergies Allergies Allergy/AdvReac Type Severity Reaction Status Date / Time No Known Allergies Allergy Verified 02/10/25 16:25 Mental Status Exam Mental Status Exam Narrative: Patient is A+O to self () not to his age, not to current month/date/day/year. Do not know he is in the hospital. Do not know he came from [facility]. Wearing hospital attire without bottom, observed having pull-up on. 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 Mood is pleasant and cooperative. Cognitive impairment, appears to be confused with disorganized thoughts. Impaired insight and judgment. He ambulate using WC. Speech is WNL, normal volume and rate, friendly. Thought content WNL, no SI/SIB/HI/AVH. Assessment & Plan Assessment & Plan (1) Major neurocognitive disorder due to another medical condition, with agitation: Status: Acute Code(s): F02.811 - Dementia in other diseases classified elsewhere, unspecified severity, with agitation Plan HPI: Mr. 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 On arrival to the ED, he was confused, believed Keon Elizalde is the president. Stated he didn't know why he was agitated and denied SI or violent ideation. Per collateral gathered by CARE Team from the SNF, pt has not been the same since one week ago after having a panic attack, associated with BP elevation, crying and not responding. He was sent to the ED and reportedly medically cleared. Formulation/clinical reasoning: AMS, confused, forgetful with behavior changes, agitated x1 week. Impaired judgment and insight, appear to have some memory issues. Patient would benefit in restrictive environment for safety, medication adjustment and refer patient back to [facility] where patient comes from. Hospital course: 02/14/25: section 12B. Patient has no capacity to sign CV. Continue with all home meds. Ambulate using WC. Need nursing resident. Patient would benefit from PT evaluation. Plan Patient on 5 minute checks for safety. Admitted to S1. 12B Work with treatment team to do collateral with family Confirm psychiatric mental dx: not sure if he was dx with dementia. PT evaluation pending. Patient educated on: diagnosis, medication risk/benefits and therapeutic strategies Informed Consent: further education needed Reason for continued inpatient stay Substantial Risk for: inability to function and med/psych decompensation Statement Statement: I have reviewed the history and physical and performed a pertinent examination on my patient. No changes have occurred unless specified. If the History and Physical was not performed prior to admission, the Hospitalist's service will be consulted for completing the admission physical. Time Spent With Patient Time: Total time managing care of this patient today ____ minutes.Dictated By: Joan Santiago NP Signed By: <Electronically signed by Joan Santiago> 02/14/252025 <Electronically signed by Kyler Samayoa MD> 02/16/25 2937 THE PATIENT WAS ADMITTED TO THE [facility] on a section 12 B. the patient did not seem to understand why he had been hospitalized denied any recent combative behavior or agitation. He was continued on the medications that he had been on in the rehab setting. He was continued on gabapentin mirtazapine escitalopram Eliquis and metoprolol. The patient was able to navigate himself in a wheelchair although he was quite disorganized having a great deal of difficulty holding onto recent information such as his room needed to be reminded that he was in the hospital. Need frequent reorientation the patient was pleasant and cooperative generally with staff. Since the patient had been admitted on a section 12 B became quite clear that he did not have capacity had severe memory impairment unable to take in new information and hold onto it was frequently disoriented talking about living with his mother did not seem to be aware he had come from a rehab setting. It became clear that he patient had suffered a catastrophic neurological event details of which were not totally clear records from [facility] were not available. This had apparently happened a couple of years ago and his reported that been a severe hypoxic event. Healthcare proxy was invoked and patient's did sign a conditional voluntary. Became quite clear that the patient's condition was not acute and he remain pleasant cooperative not paranoid not aurelio tated. He needed frequent cuing but remain pleasant and cooperative. Patient's electrolytes TSH B12 folate were unremarkable.CT head w/o contrast [facility] showed scattered subcortical and periventricular hypoattenuation, likely c/w chronic small vessel disease; parenchymal volume loss with prominence of ventricles and CSF space. There were no acute changes. CT scan was more consistent with chronic changes and volume loss consistent with more chronic condition. There was a BAL of 11 in the emergency room that was unclear the patient did not seem was not noted to be intoxicated, unclear if patient had been somehow given any alcohol in the rehab setting or if this was an anomalous result. Did not seem to be a major contributory factor. Patient was noted to be HIV negative a syphilis screen was completed initially prior to understanding that the patient's severe cognitive impairment had resulted from an acute event a couple of years ago which resulted in diffuse global damage. 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 The patient has been receiving short-term physical therapy to help with his transferring ability question any gait capacity patient does have a brace. Patient to return to [facility] If confirmatory syphilis comes back positive would suggest consideration of Neurology input whether or not there is any consideration of neurological syphilis will forward after confirmatory results from health dept Status at Discharge Cognitive/behavioral status at discharge: Patient response to his name not oriented to year or month or place pleasant able to discussed stories related to when he was younger living with his mother going to mu-ism and helping with his nephews. Patient generally pleasant cooperative often smiling not agitated at times becomes perplexed when told of circumstances Functional status at discharge: wheelchair bound Overall status at discharge: patient is progressing back to baseline Time Spent with Patient Time attestation: Total time managing care of this patient today _40___ minutes. Time spent: Greater than 30 minutes Discharge Plan Discharge Anticipated Discharge Date/Time: 02/21/25 10:00 Patient Disposition: Xfer Inpatient Rehab Fac Discharge Diagnosis: major neurocognitive disorder s/p vascular/hypoxia event htn Referrals: Physician,Unknown J [Primary Care Provider, Medical] - 1 Week Discharge Medications: Continued finasteride 5 mg tablet 5 mg PO DAILY acetaminophen 325 mg Tablet 650 mg PO Q6H MDD 3gm/24h PRN (Reason: Pain, Mild (Pain Scale 1-3)) 30 Days Qty: 42 0RF sennosides [senna] 8.6 mg Tablet 8.6 mg PO BID pravastatin 40 mg tablet 40 mg PO DAILY metoprolol succinate 50 mg Tablet Extended Release 24 Hr 50 mg PO DAILY omeprazole 40 mg Capsule,Delayed Release(Dr/Ec) 40 mg PO DAILY@2000 magnesium hydroxide [Milk of Magnesia] 400 mg/5 mL Suspension 30 ml PO DAILY PRN (Reason: Constipation) Rx Instructions: For no BM in 3 days bisacodyl 10 mg Suppository 10 mg ND DAILY PRN (Reason: Constipation) Rx Instructions: If M.O.M not effective ferrous sulfate 325 mg (65 mg iron) tablet 325 mg PO DAILY ascorbic acid (vitamin C) [Vitamin C] 500 mg Tablet,Chewable 500 mg PO DAILY Fleet Enema 19-7 gram/118 mL Enema 118 ml ND DAILY PRN (Reason: Constipation) Rx Instructions: If Ducolax supp. not effective. mirtazapine 15 mg Tablet 15 mg PO BEDTIME gabapentin 100 mg Capsule 100 mg PO BID escitalopram oxalate [Lexapro] 10 mg Tablet 10 mg PO DAILY cholecalciferol (vitamin D3) [Vitamin D3] 25 mcg (1,000 unit) Tablet 50 mcg PO DAILY Eliquis 5 mg Tablet 5 mg PO BID lorazepam [Ativan] 0.5 mg tablet 0.5 mg PO TID PRN (Reason: Anxiety) 30 Days Qty: 90 0RF Discharge Orders: Discharge Order (Routine); Ordered 02/21/25 Ordered By: Kyler Samayoa Diet: Advance to usual diet Activity on Discharge: wheelchair Stand Alone Forms: Patient Portal Discharge page Print Language: Danish Care Plan Goals: return to rehab setting participate with PT stabilize mood reactivity Health Concerns: htn major cognitive disrder with vascular brain changes brain atrophy wheelchair bound needs pt for help with gait standing needs help with adls cueing pos initial syphillis screen will forward results after recieved from health dept Plan of Treatment: 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
[2025-02-21 08:00] VITALS: BP 111/75; PULSE 63; RESP 19; TEMP 36.6; O2SAT 98
[2025-02-21 08:41] VITALS: BP 111/75; PULSE 63
[2025-02-21] MEDS: Metoprolol Succinate ER 50 MG TAB.ER.24H PO (08:41)
[2025-02-21] MEDS: Ferrous Sulfate 324 MG TABLET.DR PO (08:41)
[2025-02-23 14:12] LABS: Anti Nuclear Antibody Screen NEGATIVE (NEGATIVE)
[2025-02-24 12:26] LABS: T.Pallidum Particle Agg Test Non-Reactive (Nonreactive)
== END 2025-02-21 10:45 | DRG 42 ==
LOC: HO.ED 02-11 18:15 → HO.PGERI 02-14 15:04
PROVIDERS: Psychiatry & Neurology Psychiatry; Admitting Provider Nurse Practitioner Psychiatric/Mental Health; Emergency Provider Emergency Medicine Emergency Medical Services; Visit Provider Nurse Practitioner Psychiatric/Mental Health
DX: F01.511 Vascular dementia, unspecified severity, with agitation (principal); D50.9 Iron deficiency anemia, unspecified; E78.5 Hyperlipidemia, unspecified; I10 Essential (primary) hypertension; L73.2 Hidradenitis suppurativa; N40.0 Benign prostatic hyperplasia without lower urinary tract symptoms; Z87.891 Personal history of nicotine dependence; Z79.01 Long term (current) use of anticoagulants; Z79.899 Other long term (current) drug therapy
CPT/HCPCS: 36415; 70450; 80048; 80053; 80061; 80076; 80307; 81001; 82607; 82746; 83036; 84439; 84443; 85025; 85652; 86038; 86592; 86780; 87389; 93005; 99285; S9485

== ENCOUNTER → 2025-02-10 16:21 | Outpatient (BNV) | payer MEDICAID, SELFPAY | PROVIDERS: Emergency Provider Emergency Medicine Emergency Medical Services; Visit Provider Radiology Diagnostic Radiology | DX: R41.82 Altered mental status, unspecified (principal) | CPT/HCPCS: 70450 ==

== ENCOUNTER → 2025-02-10 16:42 | Outpatient (BNV) | payer OTHER, SELFPAY | PROVIDERS: Emergency Provider Emergency Medicine Emergency Medical Services; Visit Provider Psychiatry & Neurology Psychiatry | DX: F02.811 Dementia in other diseases classified elsewhere, unspecified severity, with agitation (principal) | CPT/HCPCS: 99232 ==

== ENCOUNTER → 2025-02-11 14:43 | Outpatient (BNV) | payer MEDICAID, SELFPAY | PROVIDERS: Emergency Provider Emergency Medicine Emergency Medical Services; Visit Provider Internal Medicine Cardiovascular Disease | DX: Z13.6 Encounter for screening for cardiovascular disorders (principal) | CPT/HCPCS: 93010 ==

== ENCOUNTER → 2025-02-14 14:49 | Outpatient (BNV) | payer MEDICAID, SELFPAY | PROVIDERS: Admitting Provider Nurse Practitioner Psychiatric/Mental Health; Emergency Provider Emergency Medicine Emergency Medical Services; Visit Provider Nurse Practitioner Family | DX: I10 Essential (primary) hypertension (principal) | CPT/HCPCS: 99221 ==

== ENCOUNTER → 2025-02-14 14:49 | Outpatient (BNV) | payer MEDICAID, SELFPAY | PROVIDERS: Admitting Provider Nurse Practitioner Psychiatric/Mental Health; Emergency Provider Emergency Medicine Emergency Medical Services; Visit Provider Psychiatry & Neurology Psychiatry | DX: F02.811 Dementia in other diseases classified elsewhere, unspecified severity, with agitation (principal) | CPT/HCPCS: 99231 ==

== ENCOUNTER 2025-04-18 11:01 | Emergency (ER) | payer OTHER, SELFPAY ==
--- OUTSIDE RECORDS SUMMARY | 2020-07-02 03:55 | XMS_ITS | Continuity of Care Document ---
Author Organization [facility] Address [address] [address] Phone Care Team Providers Care Wheelman Name Role Phone Carroll Rojas MD Unavailable Unavailable Advance Directives Directive Yes / No Effective Date File Name No Information Encounters Encounter Description Practice Location Reason(s) For Visit Diagnoses Date Provider [facility], [address], [id number], [place] tel:[phone] [facility] No Information 2020 Bob Hodges. [address] [place] [address], [id number], [place]. tel:[phone] Family History Family Member Type Diagnosis Age At Onset No Information Payers Payer name Insurance type Covered republican ID Authoriza tion(s) No Information Social History Type Description Quantity Date Captured Comments Sex Male Smoking Status No Information Chief Complaint And Reason For Visit No Information History Of Present Illness Encounter Date Complaint History Of Prese nt Illness No Information Instructions Date Instruction Additional Infor mation No Information Assessments Type Assessment Date No Information
--- NOTE | ~2025-04-18 | XR_ITS ---
EXAMINATION: XR CHEST 1 VIEW HISTORY: weakness COMPARISON: Comparison is made with the prior examination dated 02/03/2025. FINDINGS: A single AP portable view of the chest performed at 12:37 PM is submitted. Again seen is opacity at the left lung base which may represent atelectasis or scarring. There is no pleural effusion, pneumothorax, or pulmonary vascular congestion. The heart is normal in size. The trachea is again seen displaced to the right which may represent an enlarged thyroid. There is degenerative disc disease of the spine. XR/XR chest 1V IMPRESSION: 1. Persistent opacity at the left lung base which may represent atelectasis or scarring. 2. Displacement of the trachea to the right which may indicate an enlarged thyroid or a mediastinal mass. Clinical correlation is recommended. This could be further evaluated with chest CT. Electronically signed by: Krishna Seo MD 04/18/2025 12:46 PM [facility]
--- NOTE | 2025-04-18 11:17 | ECG_ITS ---
Test Reason : AMS Blood Pressure : */* mmHG Vent. Rate : 76 BPM Atrial Rate : 76 BPM P-R Int : 170 ms QRS Dur : 86 ms QT Int : 376 ms P-R-T Axes : 47 -12 6 degrees QTcB Int : 423 ms Normal sinus rhythm Minimal voltage criteria for LVH, may be normal variant ( R in aVL ) Borderline ECG When compared with ECG of 11-Feb-2025 15:14, No significant change was found Referred By: Radha Marroquin Electronically Signed By: JARRETT WATERMAN MD
[2025-04-18 11:21] VITALS: BP 116/112; BP 143/89; PULSE 78; PULSE 88; RESP 19; TEMP 36.7; O2SAT 95; O2SAT 98; BMI 43.1
[2025-04-18 11:28] LABS: Glucose, Whole Blood 89 mg/dL (60-115)
--- OUTSIDE RECORDS SUMMARY | 2025-04-18 11:39 | XMS_ITS | Encounter Summary ---
Author Organization [facility] Address [address] [place] [address] Care Team Providers Care Traveling Sales Executive Name Role Phone Pito Capellan MD Primary Care Provider Encounter Details Date Type Department Care Team (Latest Contact Info) Description 07/31/2024 Lab Requisition [facility] - Main Lab [address] [facility] [place] [address] Ron Bond MD [address] [place] [id number] Urinary tract infection, site not specified; Metabolic encephalopathy Social History Tobacco Use Types Packs/Day Years Used Date Smoking Tobacco: Former Cigarettes 0.1 Q uit: 04/24/2010 Smokeless Tobacco: Never Alcohol [...] LAB CHEMISTRY METHOD 07/31/2024 8:19 AM EDT [facility] Blood Venous blood specimen / Unknown Venipuncture / Unknown 07/31/2024 7:05 AM EDT 07/31/2024 7:55 AM EDT us Ron Bond MD LAB BLOOD ORDERABLES Final Resu lt [facility] [address] [place] [address], [place] [phone] * (ABNORMAL) Basic metabolic panel (07/31/2024 7:05 AM EDT) Pathologist [facility] Sodium 143 133 - 145 mmol/L LAB CHEMISTRY METHOD 07/31/2024 8:42 AM T [facility] Potassium 3.0(L) 3.5 - 5.5 mmol/L LAB CHEMISTRY METHOD 07/31/2024 8:42 AM EDT [facility] Chloride 111(H) 96 - 110 mmol/L LAB CHEMISTRY METHOD 07/31/2024 8:42 AM T [facility] CO2 29 21 - 32 mmol/L LAB CHEMISTRY METHOD 07/31/2024 8:42 AM T [facility] Anion Gap 3 3 - 11 LAB CHEMISTRY METHOD 07/31/2024 8:42 AM EDT [facility] Glucose 77 70 - 100 mg/dL LAB CHEMISTRY METHOD 07/31/2024 8:42 AM EDT [facility] BUN 9 5 - 25 mg/dL LAB CHEMISTRY METHOD 07/31/2024 8:42 AM [facility] Creatinine 0.73 0.70 - 1.30 mg/dL LAB CHEMISTRY METHOD 07/31/2024 8:42 AM EDT [facility] eGFR 105 >=60 mL/min/1. 73m2 LAB CHEMISTRY METHOD 07/31/2024 8:42 AM EDT [facility] Comment:Calculation based on the Chronic Kidney Disease Epidemiology Collaboration (CKD-EPI) equation refit without adjustment for race. BUN/Creatinine Ratio 12.3 LAB CHEMISTRY METHOD 07/31/2024 8:42 AM [facility] Calcium 9.0 8.5 - 10.5 mg/dL LAB CHEMISTRY METHOD 07/31/2024 8:42 AM [facility] Blood Venous blood specimen / Unknown Venipuncture / Unknown 07/31/2024 7:05 AM EDT 07/31/2024 7:55 AM EDT us Ron Bond MD LAB BLOOD ORDERABLES Final Resu lt [facility] [address] [place] [address], * (ABNORMAL) Complete blood count (07/31/2024 7:05 AM EDT) WBC 6.2 4.8 - 10.8 K/mcL LAB HEMETOLOGY METHOD 07/31/2024 8:08 AM EDT [facility] RBC 2.90(L) 4.50 - 5.50 M/mcL LAB HEMETOLOGY METHOD 07/31/2024 8:08 AM [facility] Hemoglobin 8.3(L) 13.5 - 17.5 g/dL LAB HEMETOLOGY METHOD 07/31/2024 8:08 AM T [facility] Hematocrit 26.2(L) 42.0 - 54.0 % LAB HEMETOLOGY METHOD 07/31/2024 8:08 AM [facility] MCV 91.3 79.0 - 98.0 FL LAB HEMETOLOGY METHOD 07/31/2024 8:08 AM EDT [facility] MCH 28.9 27.0 - 32.0 pcg LAB HEMETOLOGY METHOD 07/31/2024 8:08 AM T [facility] MCHC 31.7(L) 32.0 - 37.0 g/dL LAB HEMETOLOGY METHOD 07/31/2024 8:08 AM [facility] RDW 19.3(H) 11.0 - 15.0 % LAB HEMETOLOGY METHOD 07/31/2024 8:08 AM [facility] Platelets 271 130 - 400 K/mcL LAB HEMETOLOGY METHOD 07/31/2024 8:08 AM [facility] MPV 10.5 7.0 - 11.0 FL LAB HEMETOLOGY METHOD 07/31/2024 8:08 AM [facility] NRBC 0.0 <1.0 % LAB HEMETOLOGY METHOD 07/31/2024 8:08 AM [facility] NRBC Absolute 0.00 <0.10 K/mcL LAB HEMETOLOGY METHOD 07/31/2024 8:08 AM [facility] Blood Venous blood specimen / Unknown Venipuncture / Unknown 07/31/2024 7:05 AM EDT 07/31/2024 7:55 AM EDT us Ron Bond MD LAB BLOOD ORDERABLES Final Resu lt [facility] [address] [place], [place] [address] [phone] documented in this encounter Visit Diagnoses Diagnosis [...] documented as of this encounter Care Teams Traveling Sales Executive Relationship Specialty Start Date End Date Pito Capellan MD [address] [address] PCP - General 08/12/22 documented as of this encounter
--- OUTSIDE RECORDS SUMMARY | 2025-04-18 11:39 | XMS_ITS | Clinical Summary ---
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 01/08/20 25 Active cholecalciferol (VITAMIN D-3) 50 mcg (2,000 unit) tablet Take 1 tablet (2,000 Units total) by mouth 1 (one) time each day. 90 tablet 3 04/08/20 24 025 ferrous sulfate 325 mg (65 mg elemental iron) tablet Take 1 tablet (325 mg total) by mouth 1 (one) time each day. 90 each 3 04/08/20 24 025 Active Problems Problem Noted Date Diagnosed Date DVT (deep venous thrombosis) 12/31/2024 Dementia 12/24/2024 Sinus tachycardia 08/25/2024 Back pain 08/13/2024 [...] anemia 11/04/2019 Prediabetes 07/16/2019 Alcohol dependence in sustained full remission 0 06/11/2019 Hidradenitis suppurativa 06/11/2019 Overview (02/29/2024): Chronic, Severe, multiple areas, sees Dr Piper Allergic rhinitis 10/06/2017 Herpes simplex without complication 10/06/2017 Obstructive sleep apnea on CPAP 10/06/2017 Osteoarthritis of left knee 10/06/2017 Overview (02/29/2024): Uses brace Primary hypertension 10/06/2017 Severe obesity (BMI 35.0-39.9) with comorbidity 10/06/2017 Thrombocytopenia 10/06/2017 Degenerative arthritis of lumbar spine 8 Hyperlipemia 10/06/2017 Resolved Problems Problem Noted Date Diagnosed Date Resolved Date Syncope and collapse 06/29/2024 025 Recurrent syncope 06/27/2024 07/01/2024 Immunizations Immunization Administration Dates Next Due Influenza Quadravalent, MDCK , 0.5ml, preservative free (Flucelvax) 6mo and older 03/30/2024,01/11/2023,01/03/2019 Influenza trivalent, 0.5mL, preservative free (Fluarix; FluLaval; Fluzone) ages 6mo and older (Afluria) 3 years and older 01/11/2017 OffersBy.Me SARS-CoV-2 COVID-19, mRNA, LNP-S, preservative free 03/24/2022,09/29/2020,09/08/2020 Pneumococcal conjugate 20 va lent (Prevnar 20, PCV 20) 2mo and older 04/03/2024 Td Tetanus diptheria (Tdvax) 7yo and older 08/28,03/09/2001 Tdap Tetanus diptheria acell ular pertussis (Boostrix; Adacel) 7yo and older 01/11/2023 Surgical History Surgery Date Site/Laterality Comments COLONOSCOPY 2016 PROCEDURE: HISTORICAL COLONOSCOPY; COMMENT: [facility]. Bleeding internal hemorrhoids. Repeat in 10 years. ESOPHAGOGASTRODUODENOSCOPY PROCEDURE: ME EGD TRANSORAL BIOPSY SINGLE/MULTIPLE; COMMENT: Performed with [...] of left knee; COMMENT: Uses brace Thrombocytopenia ([facility]/HCC V24) 10/06/2017 D X:Thrombocytopenia (HCC) Allergic rhinitis [...] 0.1 Q uit: 04/24/2010 Smokeless Tobacco: Never Tobacco [...] Orientation Straight 01/31/2024 12 :03 AM EDT Last Filed Vital Signs Vital Sign Reading [...] 1984 Zoster Vaccines (1 of 2) 1984 RSV Immunization Adult Patients (1 - Risk 50-74 years 1-dose series) 06/25/2015 COVID-19 Vaccine ( season) 2024 03/24/2022, 04/06/2021, 09/29/2020, Additional history [...] Cancer Screening: Colonoscopy 07/04/2034 07/04/2024, 07/01/2024, 10/15/2019 Hepatitis C Screening Completed 04/03/2024 Pneumococcal Vaccine: [...] METABOLIC PANEL Timed 01/07/2025 6:37 AM EDT HIV 1, 2 ANTIBODY, P24 ANTIGEN [...] Basic metabolic panel (01/07/2025 6:37 AM EDT) [facility] Sodium 139 133 - 145 mmol/L LAB CHEMISTRY METHOD 01/07/2025 7:52 AM [facility] Potassium 4.3 3.5 - 5.5 mmol/L LAB CHEMISTRY METHOD 01/07/2025 7:52 AM [facility] Chloride 105 96 - 110 mmol/L LAB CHEMISTRY METHOD 01/07/2025 7:52 AM [facility] CO2 29 21 - 32 mmol/L LAB CHEMISTRY METHOD 01/07/2025 7:52 AM [facility] Anion Gap 5 3 - 11 LAB CHEMISTRY METHOD 01/07/2025 7:52 AM [facility] Glucose 90 70 - 100 mg/dL LAB CHEMISTRY METHOD 01/07/2025 7:52 AM [facility] BUN 26(H) 5 - 25 mg/dL LAB CHEMISTRY METHOD 01/07/2025 7:52 AM [facility] Creatinine 1.25 0.70 - 1.30 mg/dL LAB CHEMISTRY METHOD 01/07/2025 7:52 AM [facility] eGFR 66 >=60 mL/min/1. 73m2 LAB CHEMISTRY METHOD 01/07/2025 7:52 AM [facility] Comment:Calculation based on the Chronic Kidney Disease Epidemiology Collaboration (CKD-EPI) equation refit without adjustment for race. BUN/Creatinine Ratio 20.8 LAB CHEMISTRY METHOD 01/07/2025 7:52 AM EDT [facility] Calcium 9.8 8.5 - 10.5 mg/dL LAB CHEMISTRY METHOD 01/07/2025 7:52 AM EDT [facility] Blood Venous blood specimen / Unknown Venipuncture / Unknown 01/07/2025 6:37 AM EDT 01/07/2025 7:04 AM EDT Jesus Manuel Jose MD LAB BLOOD ORDERABLES Final Resul t Performing Organization Address [facility]/ZIP Co de Phone Number [facility] [address] [place] [address], * HIV 1,2 antibody, p24 antigen with reflex to differentiation (07/06/2024 5:31 AM EDT) HIV Combo AB/AG Negative Negative LAB CHEMISTRY METHOD 07/06/2024 12:25 PM EDT [facility] Blood Venous blood specimen / Unknown Venipuncture / Unknown 07/06/2024 5:31 AM EDT 07/06/2024 6:04 AM EDT Narrative [facility] - 07/06/2024 12:25 PM EDT This assay is a 4th generation assay allowing for earlier detection of HIV infection by detecting the presence of the HIV-1 p24 antigen as well as the traditional antibodies to HIV type 1 (including group O) and type 2. Use of a 4th generation assay is the current CDC recommendation for HIV screening. Venkatesh BURTON LAB BLOOD ORDERABLES Darlene l Result Performing Organization Address City/[facility]/ZIP Co de Phone Number [facility] [address] [place] [address], [place] [phone] * External Colonoscopy Report (07/04/2024) Anatomical Region Laterality Modality Endoscopy Provider Onbase GI~PROCEDURE ORDERABLES Final Result * Hepatitis C antibody (04/03/2024 12:39 PM EST) Hepatitis C Antibody Negative Negative LAB CHEMISTRY METHOD 04/03/2024 4:12 PM [facility] Blood Venous blood specimen / Unknown Venipuncture / Unknown 04/03/2024 12:39 PM EST 04/03/2024 12:39 PM EST us Pito Capellan MD LAB BLOOD ORDERABLES Final Resul t [facility] [address] [place] [address], [place] [phone] * (ABNORMAL) Lipid panel with reflex to direct LDL (04/03/2024 12:39 PM EST) Pathologist [facility] Cholesterol 145 0 - 200 mg/dL LAB CHEMISTRY METHOD 04/03/2024 4:00 PM [facility] Triglycerides 130 0 - 150 mg/dL LAB CHEMISTRY METHOD 04/03/2024 4:00 PM [facility] HDL 32(L) >=40 mg/dL LAB CHEMISTRY METHOD 04/03/2024 4:00 PM [facility] LDL Calculated 87 0 - 100 mg/dL LAB CHEMISTRY METHOD 04/03/2024 4:00 PM [facility] VLDL Cholesterol Jeremy 26 mg/dL LAB CHEMISTRY METHOD 04/03/2024 4:00 PM [facility] Non HDL Chol. (LDL+VLDL) 113 <145 mg/dL LAB CHEMISTRY METHOD 04/03/2024 4:00 PM [facility] Chol/HDL Ratio 4.5(H) 0.0 - 4.4 LAB CHEMISTRY METHOD 04/03/2024 4:00 PM [facility] Blood Venous blood specimen / Unknown Venipuncture / Unknown 04/03/2024 12:39 PM EST 04/03/2024 12:39 PM EST us Pito Capellan MD LAB BLOOD ORDERABLES Final Resul t 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
[2025-04-18 11:40] LABS: MANUAL DIFF FLAG NO
[2025-04-18 11:43] LABS: Hematocrit 39.4 % (42.0-52.0); Hemoglobin 12.8 g/dl (14.0-18.0); Imm Gran Abs Auto 0.03 X10*3/uL (0.00-0.03); Imm Gran Pct Auto 0.4 % (0.0-0.4); Lymphocytes Absolute Auto 1.8 X10*3/uL (1.2-4.9); Mean Corpuscular HGB Conc 32.5 g/dl (31.0-36.0); Mean Corpuscular Hemoglobin 27.8 pg (27.0-33.0); Mean Corpuscular Volume 85.7 fL (80.0-98.0); NRBC Abs Auto 0.000 X10*3/uL (0.0-0.012); NRBC Pct Auto 0.0 /100WBC (0.0-0.2); Platelet Count 141 X10*3/uL (160-400); Red Blood Count 4.60 X10*6/uL (4.60-5.80); White Blood Count 7.5 X10*3/uL (4.8-10.8)
[2025-04-18 11:44] LABS: VBG HCO3 24 mmol/L (22-26); VBG O2 % Saturation 95.0 %
[2025-04-18 11:45] LABS: Venous Blood Gas Refer to POC result
--- NOTE | 2025-04-18 11:54 | ED.GENADULT ---
HPI - General Adult General Chief complaint: Altered Mental Status Stated complaint: WEAKNESS AMS Time Seen by Provider: 04/18/25 11:54 History of Present Illness ED Provider: Yudith RUBIN narrative: The patient is a 59-year-old male with a history of dementia and hypertension. He also has a history of a stroke. He is on apixaban although whether this is because of his history of stroke or of a DVT is not clear. The patient apparently seemed less alert than usual this morning and so staff at the facility called 911 and he was brought here. The patient has had similar presentations in the past. When I went to see the patient he seemed to be sleeping but he aroused with a gentle tactile stimulation. He said that he had some pains in his arms in his legs but had no other complaints. He felt tired. The patient seems significantly demented and is not able to give any additional reliable history. Related Data Home Medications ?Medication ?Instructions ?Recorded ?Confirmed finasteride 5 mg tablet 5 mg PO DAILY 05/18/23 02/11/25 apixaban 5 mg tablet (Eliquis) 5 mg PO BID 02/11/25 02/11/25 ascorbic acid (vitamin C) 500 mg 500 mg PO DAILY 02/11/25 02/11/25 chewable tablet (Vitamin C) bisacodyl 10 mg rectal suppository 10 mg ID DAILY PRN Constipation 02/11/25 02/11/25 cholecalciferol (vitamin D3) 25 50 mcg PO DAILY 02/11/25 02/11/25 mcg (1,000 unit) tablet (Vitamin D3) escitalopram oxalate 10 mg tablet 10 mg PO DAILY 02/11/25 02/11/25 (Lexapro) ferrous sulfate 325 mg (65 mg 325 mg PO DAILY 02/11/25 02/11/25 iron) tablet gabapentin 100 mg capsule 100 mg PO BID 02/11/25 02/11/25 magnesium hydroxide 400 mg/5 mL 30 ml PO DAILY PRN Constipation 02/11/25 02/11/25 oral suspension (Milk of Magnesia) metoprolol succinate 50 mg 50 mg PO DAILY 02/11/25 02/11/25 tablet,extended release 24 hr mirtazapine 15 mg tablet 15 mg PO BEDTIME 02/11/25 02/11/25 omeprazole 40 mg capsule,delayed 40 mg PO DAILY@199902/11/25 02/11/25 release pravastatin 40 mg tablet 40 mg PO DAILY 02/11/25 02/11/25 sennosides 8.6 mg tablet (senna) 8.6 mg PO BID Constipation 02/11/25 02/11/25 sodium phosphates 19 gram-7 118 ml ID DAILY PRN Constipation 02/11/25 02/11/25 gram/118 mL enema (Fleet Enema) Previous Rx's ?Medication ?Instructions ?Recorded acetaminophen 325 mg tablet 650 mg (2 x 325 mg) PO Q6H PRN 05/23/23 Pain, Mild (Pain Scale 1-3) 30 days #42 tabs lorazepam 0.5 mg tablet (Ativan) 0.5 mg PO TID PRN Anxiety 30 days 02/20/25 #90 tabs Allergies Allergy/AdvReac Type Severity Reaction Status Date / Time No Known Allergies Allergy Verified 04/18/25 11:25 Review of Systems Review of Systems: Yes Unobtainable due to mental status PMFSH Past Medical History Medical History (Updated 04/19/25 @ 00:00 by Background Daemon) History of infection of skin or subcutaneous tissue BPH (benign prostatic hyperplasia) Arthritis Hx of transfusion of packed red blood cells Anemia Sleep apnea Elevated cholesterol HTN (hypertension) Surgical History (Updated 03/01/25 @ 00:01 by Background Daemon) H/O colonoscopy History of ankle surgery Social History Social History Household Members: Other Household Members Other:: Nursing facility Housing: Custodial Are you a primary care team coordinator scheduler to a significant other at home: No Comment: 5 minute checks Patient Tobacco Use Status: Former Tobacco user Tobacco use type: Cigarette Smoked in Last 30 Days: No e-Cigarette/Vaping Use: Never Used Second Hand Smoke Exposure: No Use of substances other than those prescribed or required for medical reasons: No Substance Use Type: Marijuana Advance Directives: Yes Advance Directives on File: Yes Advance Directives Date on File: 02/03/25 Do you have a plan to hurt others: No Plan service: No 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al status: disabled 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 He did not initially respond to verbal stimuli but did respond to gentle tactile stimuli. He arouse to a fairly good level of alertness. He did not seem in pain or respiratory distress. He did not seem to have obvious neurological deficits. HENMT Other: Face is symmetrical. Tongue is midline. Mucous membranes moist. Eyes Other: Pupils are round equal, conjunctivae are clear, extraocular movements intact Neck Neck: Yes normal visual inspection, Yes full ROM and Yes no JVD Resp Effort & Inspection: normal respiratory effort Auscultation: clear to auscultation bilaterally Cardio Rate: regular rate Rhythm: regular rhythm Heart sounds: S1 normal heart sound present and S2 normal heart sound present GI Other: The patient has a large abdomen but it is soft and nontender. Skin Other: The skin is dry and unremarkable Neuro Other: The patient was initially lying with his eyes closed. He seemed to be asleep. He aroused with gentle tactile stimulation. He aroused to a fairly good level of consciousness. Pupils are round equal, extraocular movements are intact, face is symmetrical, tongue is midline, speech seems clear, he seems to have symmetrical strength in his arms. Both legs seem weak. Extrem Other: No pitting edema, no asymmetry Medical Decision Making Medical Decision Making MDM Narrative: The patient is a 59-year-old male who lives at a local nursing facility. He has a history of dementia. He was sent to the emergency room because of an alteration of his mental status. When he arrived here he seemed to be very sleepy although he aroused with tactile stimuli. The patient has a history of similar presentations. the patient is afebrile. His rectal temperature was normal. His EKGs unremarkable. Labs are unremarkable. The patient was observed. Eventually he awoke to what I believe is his baseline level of consciousness and cognitive function. He wondered why he was here and was eager to [facility]. He was then discharged. This patient seems to have a pattern of similar behaviors which are not clearly explained. Lab Data 04/18/25 11:35 04/18/25 11:35 Labs: Lab Results 04/18/25 04/18/25 04/18/25 Range/Units 11:23 11:34 11:35 WBC 7.5 (4.8-10.8) X10*3/uL RBC 4.60 (4.60-5.80) X10*6/uL Hgb 12.8 L (14.0-18.0) g/dl Hct 39.4 L (42.0-52.0) % MCV 85.7 (80.0-98.0) fL MCH 27.8 (27.0-33.0) pg MCHC 32.5 (31.0-36.0) g/dl RDW 14.1 (11.0-16.0) % Plt Count 141 L (160-400) X10*3/uL MPV 12.4 (9.4-12.4) fL Immature Gran % (Auto) 0.4 (0.0-0.4) % Neut % (Auto) 63.7 (45-73) % Lymph % (Auto) 23.6 (20-40) % Kleberg % (Auto) 9.7 (2-11) % Eos % (Auto) 2.3 (0-4) % Baso % (Auto) 0.3 (0-2) % Lymph # (Auto) 1.8 (1.2-4.9) X10*3/uL Kleberg # (Auto) 0.7 (0.1-1.2) X10*3/uL Eos # (Auto) 0.2 (0.0-0.4) X10*3/uL Baso # (Auto) 0.0 (0.0-0.2) X10*3/uL Abs Immat Gran (auto) 0.03 (0.00-0.03) X10*3/uL Absolute Neuts (auto) 4.8 (2.0-8.3) x10*3/uL Absolute Nucleated RBC 0.000 (0.0-0.012) X10*3/uL Nucleated RBC % (auto) 0.0 (0.0-0.2) /100WBC VBG pH (7.32-7.43) VBG pCO2 mmHg VBG pO2 mmHg VBG HCO3 (22-26) mmol/L VBG O2 Saturation % VBG Base Excess mmol/L Sodium 141 (135-145) mmol/L Potassium 4.9 (3.3-5.1) mmol/L Chloride 110 H (96-108) mmol/L Carbon Dioxide 23 (22-29) mmol/L Anion Gap 13 (12-20) BUN 18 H (9-16) mg/dL Creatinine 1.21 (0.5-1.4) mg/dL Estim Creat Clear Calc 83.2 Estimated GFR > 60 POC Glucose 89 (60-115) mg/dL Random Glucose 84 (60-115) mg/dL Calcium 9.5 (8.4-10.2) mg/dL Magnesium 1.9 (1.6-2.6) mg/dL Total Bilirubin 0.2 (0.0-1.0) mg/dL AST 43 H (5-37) U/L ALT 24 (0-40) U/L Alkaline Phosphatase 100 (39-117) U/L Troponin I High Sens < 2.7 (<3.5-35.0) ng/L C-Reactive Protein 0.92 H (< or = 0.50) mg/dL NT-Pro-B Natriuret Pep 34.8 (<300) pg/mL Total Protein 8.1 H (6.5-8.0) g/dL Albumin 4.0 (3.5-5.0) g/dL Urine Color Urine Appearance Urine pH (5.0-9.0) Ur Specific [place] (1.005-1.025) Urine Protein (Neg-Trace) mg/dL Urine Glucose (UA) (Negative) mg/dL Urine Ketones (Negative) mg/dL Urine Blood (Negative) Urine Nitrite (Negative) Ur Leukocyte Esterase (Negative) Urine Opiates Screen (Not Detect) Ur Buprenorphine Scrn (Not Detect) ng/mL Ur Oxycodone Screen (Not Detect) ng/mL Urine Methadone Screen (Not Detect) ng/mL Urine Fentanyl Screen (Not Detect) Ur Barbiturates Screen (Not Detect) Ur Phencyclidine Scrn (Not Detect) Ur Amphetamines Screen (Not Detect) U Benzodiazepines Scrn (Not Detect) Urine Cocaine Screen (Not Detect) U Marijuana (THC) Screen (Not Detect) Ethyl Alcohol < 10 mg/dL Influenza Type A (PCR) NEGATIVE (Negative) Influenza Type B (PCR) NEGATIVE (Negative) RSV RNA Qual (PCR) NEGATIVE (Negative) SARS-CoV-2 RNA (RT-PCR) NEGATIVE (Negative) 04/18/25 04/18/25 Range/Units 11:40 13:48 WBC (4.8-10.8) X10*3/uL RBC (4.60-5.80) X10*6/uL Hgb (14.0-18.0) g/dl Hct (42.0-52.0) % MCV (80.0-98.0) fL MCH (27.0-33.0) pg MCHC (31.0-36.0) g/dl RDW (11.0-16.0) % Plt Count (160-400) X10*3/uL MPV (9.4-12.4) fL Immature Gran % (Auto) (0.0-0.4) % Neut % (Auto) (45-73) % Lymph % (Auto) (20-40) % Kleberg % (Auto) (2-11) % Eos % (Auto) (0-4) % Baso % (Auto) (0-2) % Lymph # (Auto) (1.2-4.9) X10*3/uL Kleberg # (Auto) (0.1-1.2) X10*3/uL Eos # (Auto) (0.0-0.4) X10*3/uL Baso # (Auto) (0.0-0.2) X10*3/uL Abs Immat Gran (auto) (0.00-0.03) X10*3/uL Absolute Neuts (auto) (2.0-8.3) x10*3/uL Absolute Nucleated RBC (0.0-0.012) X10*3/uL Nucleated RBC % (auto) (0.0-0.2) /100WBC VBG pH 7.44 H (7.32-7.43) VBG pCO2 35 mmHg VBG pO2 75 mmHg VBG HCO3 24 (22-26) mmol/L VBG O2 Saturation 95.0 % VBG Base Excess 0.4 mmol/L Sodium (135-145) mmol/L Potassium (3.3-5.1) mmol/L Chloride (96-108) mmol/L Carbon Dioxide (22-29) mmol/L Anion Gap (12-20) BUN (9-16) mg/dL Creatinine (0.5-1.4) mg/dL Estim Creat Clear Calc Estimated GFR POC Glucose (60-115) mg/dL Random Glucose (60-115) mg/dL Calcium (8.4-10.2) mg/dL Magnesium (1.6-2.6) mg/dL Total Bilirubin (0.0-1.0) mg/dL AST (5-37) U/L ALT (0-40) U/L Alkaline Phosphatase (39-117) U/L Troponin I High Sens (<3.5-35.0) ng/L C-Reactive Protein (< or = 0.50) mg/dL NT-Pro-B Natriuret Pep (<300) pg/mL Total Protein (6.5-8.0) g/dL Albumin (3.5-5.0) g/dL Urine Color Yellow Urine Appearance Clear Urine pH 7.0 (5.0-9.0) Ur Specific [place] 1.020 (1.005-1.025) Urine Protein Negative (Neg-Trace) mg/dL Urine Glucose (UA) Negative (Negative) mg/dL Urine Ketones Negative (Negative) mg/dL Urine Blood Negative (Negative) Urine Nitrite Negative (Negative) Ur Leukocyte Esterase Negative (Negative) Urine Opiates Screen Not Detected (Not Detect) Ur Buprenorphine Scrn Not Detected (Not Detect) ng/mL Ur Oxycodone Screen Not Detected (Not Detect) ng/mL Urine Methadone Screen Not Detected (Not Detect) ng/mL Urine Fentanyl Screen Not Detected (Not Detect) Ur Barbiturates Screen Not Detected (Not Detect) Ur Phencyclidine Scrn Not Detected (Not Detect) Ur Amphetamines Screen Not Detected (Not Detect) U Benzodiazepines Scrn Not Detected (Not Detect) Urine Cocaine Screen Not Detected (Not Detect) U Marijuana (THC) Screen Not Detected (Not Detect) Ethyl Alcohol mg/dL Influenza Type A (PCR) (Negative) Influenza Type B (PCR) (Negative) RSV RNA Qual (PCR) (Negative) SARS-CoV-2 RNA (RT-PCR) (Negative) Independent Interpretation I performed an independent interpretation of an: EKG Interpretation: EKG at 1141 shows normal sinus rhythm at 76 beats per minute. It is an unremarkable EKG. Discharge Plan Discharge Clinical Impression: Altered mental status, Dementia Patient Disposition: Xfer [facility] Transfer Details: [facility] Additional Instructions: Testing in the emergency room today is unremarkable. He seems to have returned to his usual level of alertness. Please continue regular medications. Please have him follow up with his regular doctor. Return to the emergency room if worse. Prescriptions: No Action finasteride 5 mg tablet 5 mg PO DAILY acetaminophen 325 mg Tablet 650 mg PO Q6H MDD 3gm/24h PRN (Reason: Pain, Mild (Pain Scale 1-3)) 30 Days Qty: 42 0RF sennosides [senna] 8.6 mg Tablet 8.6 mg PO BID pravastatin 40 mg tablet 40 mg PO DAILY metoprolol succinate 50 mg Tablet Extended Release 24 Hr 50 mg PO DAILY omeprazole 40 mg Capsule,Delayed Release(Dr/Ec) 40 mg PO DAILY@2000 magnesium hydroxide [Milk of Magnesia] 400 mg/5 mL Suspension 30 ml PO DAILY PRN (Reason: Constipation) Rx Instructions: For no BM in 3 days bisacodyl 10 mg Suppository 10 mg ID DAILY PRN (Reason: Constipation) Rx Instructions: If M.O.M not effective ferrous sulfate 325 mg (65 mg iron) tablet 325 mg PO DAILY ascorbic acid (vitamin C) [Vitamin C] 500 mg Tablet,Chewable 500 mg PO DAILY Fleet Enema 19-7 gram/118 mL Enema 118 ml ID DAILY PRN (Reason: Constipation) Rx Instructions: If Ducolax supp. not effective. mirtazapine 15 mg Tablet 15 mg PO BEDTIME gabapentin 100 mg Capsule 100 mg PO BID escitalopram oxalate [Lexapro] 10 mg Tablet 10 mg PO DAILY cholecalciferol (vitamin D3) [Vitamin D3] 25 mcg (1,000 unit) Tablet 50 mcg PO DAILY Eliquis 5 mg Tablet 5 mg PO BID lorazepam [Ativan] 0.5 mg tablet 0.5 mg PO TID PRN (Reason: Anxiety) 30 Days Qty: 90 0RF Referrals: [facility] [Outside] Interventions: ED Discharge Assessment Last Done: 04/18/25 17:11 Discharge Date/Time: 04/18/25 17:14 Print Language: Bahraini
[2025-04-18 11:56] LABS: Alanine Aminotransferase 24 U/L (0-40); Albumin Level 4.0 g/dL (3.5-5.0); Alkaline Phosphatase 100 U/L (39-117); Anion Gap 13 (12-20); Aspartate Amino Transferase 43 U/L (5-37); Blood Urea Nitrogen 18 mg/dL (9-16); Calcium 9.5 mg/dL (8.4-10.2); Carbon Dioxide 23 mmol/L (22-29); Chloride 110 mmol/L (96-108); Creatinine Clr Calc Pharmacy 83.2; Estimated Glomerular Filt Rate > 60; Magnesium 1.9 mg/dL (1.6-2.6); Potassium 4.9 mmol/L (3.3-5.1); Sodium 141 mmol/L (135-145); Total Protein 8.1 g/dL (6.5-8.0)
[2025-04-18 12:03] LABS: Troponin-I High Sensitivity < 2.7 ng/L (<3.5-35.0)
[2025-04-18 12:25] VITALS: BP 141/85; PULSE 74; RESP 17; O2SAT 98
[2025-04-18 12:36] LABS: Resp Syncy Virus RNA Qual PCR NEGATIVE (Negative); SARS COV2 PCR INHOUSE NEGATIVE (Negative)
[2025-04-18 12:57] LABS: NT Pro B Type Natriuretic Pept 34.8 pg/mL (<300)
[2025-04-18 13:44] VITALS: BP 161/83; PULSE 82; RESP 17; O2SAT 97
[2025-04-18 13:55] LABS: Appearance Urine Clear; Glucose Urine UA Negative (Negative); PH 7.0 (5.0-9.0); Specific Gravity - Urine 1.020 (1.005-1.025)
[2025-04-18 14:33] LABS: Cannabinoid Screen Urine Not Detected (Not Detect)
[2025-04-18 17:11] VITALS: BP 158/85; PULSE 80; RESP 17; TEMP 36.6; O2SAT 97
== END 2025-04-18 17:14 | disposition skilled nursing facility (03) ==
PROVIDERS: Physician Assistant Medical; Emergency Provider Emergency Medicine
DX: R41.82 Altered mental status, unspecified (principal); F03.90 Unspecified dementia, unspecified severity, without behavioral disturbance, psychotic disturbance, mood disturbance, and anxiety; R53.1 Weakness; Z03.818 Encounter for observation for suspected exposure to other biological agents ruled out; I10 Essential (primary) hypertension; E78.00 Pure hypercholesterolemia, unspecified; Z87.891 Personal history of nicotine dependence
CPT/HCPCS: 71045; 80053; 80307; 81003; 82803; 82947; 83735; 83880; 84484; 85025; 86140; 87637; 93005; 99283; 99285

== ENCOUNTER → 2025-04-18 11:17 | Outpatient (BNV) | payer OTHER, SELFPAY | PROVIDERS: Emergency Provider Emergency Medicine; Visit Provider Internal Medicine Cardiovascular Disease | DX: R41.82 Altered mental status, unspecified (principal) | CPT/HCPCS: 93010 ==

== ENCOUNTER → 2025-04-18 11:17 | Outpatient (BNV) | payer OTHER, SELFPAY | PROVIDERS: Emergency Provider Emergency Medicine; Visit Provider Radiology Diagnostic Radiology | DX: R91.8 Other nonspecific abnormal finding of lung field (principal); Q32.1 Other congenital malformations of trachea | CPT/HCPCS: 71045 ==